=== PATIENT | male | born 1935 | race Caucasian/White ===

== ENCOUNTER 2019-10-26 10:41 | Outpatient (CLI) | payer MEDICARE, OTHER, SELFPAY ==
[2019-10-26 11:53] LABS: Prostate Specific Antigen 0.88 ng/mL (0-4)
[2019-10-26 12:04] LABS: Alanine Aminotransferase 19 U/L (0-41); Alkaline Phosphatase 80 IU/L (40-130); Aspartate Amino Transferase 16 U/L (0-40); Blood Urea Nitrogen 22 mg/dL (8-23); Carbon Dioxide 27 mmol/L (22-29); Chloride 102 mmol/L (98-107); Glucose 222 mg/dL (74-106); Sodium 139 mmol/L (136-145); Total Bilirubin 0.4 mg/dL (0.15-1.2)
[2019-10-26 12:45] LABS: Testosterone Total 17.1 ng/dL (193-740)
== END 2019-10-26 10:42 | disposition home or self-care (01) ==
LOC: ONCMED 10:46
PROVIDERS: Family Provider Internal Medicine; PCP Internal Medicine; Visit Provider Internal Medicine Hematology & Oncology
DX: C61 Malignant neoplasm of prostate (principal)
CPT/HCPCS: 80053; 84153; 84403

== ENCOUNTER 2019-10-28 16:02 | Outpatient (CLI) | payer MEDICARE, OTHER, SELFPAY | END 2019-10-28 16:03 | disposition home or self-care (01) | LOC: ONCMED 16:02 | PROVIDERS: Family Provider Internal Medicine; PCP Internal Medicine; Visit Provider Internal Medicine Hematology & Oncology | DX: C61 Malignant neoplasm of prostate (principal); C79.51 Secondary malignant neoplasm of bone; Z90.79 Acquired absence of other genital organ(s); M25.562 Pain in left knee; Z92.23 Personal history of estrogen therapy | CPT/HCPCS: 99214 ==

== ENCOUNTER 2020-03-01 08:57 | Outpatient (CLI) | payer MEDICARE, OTHER, SELFPAY ==
[2020-03-01 09:41] LABS: Bilirubin Urine Neg (NEGATIVE); Blood Urine Neg (Negative); Glucose Urine UA 1+ (Normal); Ketones Urine Negative (Negative); Leukocyte Esterase Urine Negative (Negative); Nitrate Urine Negative (Negative); Protein Urine Neg (Negative); Urine Appearance Clear (CLEAR); Urine Color Yellow (Yellow); Urobilinogen Urine Norm (Negative)
[2020-03-01 09:48] LABS: Add Urine Culture? No; Bacteria Urine TRACE; Mucus Urine 2+
[2020-03-01 09:58] LABS: Prostate Specific Antigen 5.51 ng/mL (0-4)
[2020-03-01 10:26] LABS: Testosterone Total 231.4 ng/dL (193-740)
== END 2020-03-01 08:58 | disposition home or self-care (01) ==
LOC: ONCMED 08:59
PROVIDERS: PCP Internal Medicine; Visit Provider Internal Medicine Hematology & Oncology
DX: C61 Malignant neoplasm of prostate (principal)
CPT/HCPCS: 81001; 84153; 84403

== ENCOUNTER 2020-03-03 07:58 | Outpatient (CLI) | payer MEDICARE, OTHER, SELFPAY ==
--- NOTE | 2020-03-03 09:43 | ONC FU_ITS ---
Dr. Gómez follow up note Patient: Annika Montgomery Unit #: [id number]: 1935 Dicatated By: Michael Gómez M.D.Date of Visit:Mar 03, 2020 Onc Med Follow-up/Prog Note History of Present Illness: Annika Murray , is a 84-year-old gentleman with long-standing history of prostrate cancer, he was intially diagnosed with prostrate cancer in November 2001 with PSA 6.3 and abnormal TAMY underwent radical retropubic prostatectomy with demonstration of right seminal vesicle involvement subsequently underwent adjuvant XBRT. During follow-up, late rising of PSA was noted and PSA continued to go up slowly, as per urology note PSA doubling time was more than one year. Patient was offered adjuvant hormonal therapy but patient declined until recently in March 2018 his PSA was 23.3 and there was a distinct right sided induration on TAMY. Because of left knee pain he underwent MRI scan of lumbar spine on 08/05/2018 which shows T11, L4, L5 vertebral body abnormality, subsequently underwent bone scan on 09/03/2018 which revealed metastatic disease involving left L4 superior articular facet, metastatic disease involving the left fifth, left ninth and right 11th rib and possibly right 6 and seventh ribs, subacute T12 compression fracture and on 09/14/2018 he was started on bicalutamide and referred to oncology clinic for ADT as patient declined castration and for biphosphonate for bone metastases.Zoladex was added on 10/13/2018, Zoladex was discontinued on April 22, 2019 at patient's request because of related side effects like hot flashes, generalized body weakness and fatigue and Xgeva was changed to Every 6 months and followed with a PSA and physical exam Other active issue 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 Chronic left knee pain in the past knee replacement was suggested but patient has used alternative therapy for many years with some success.He was evaluated by Dr. boone and CT scan of thoracic spine was done on 12/15/2018 which showed nonacute appearing T12 approximately 20% height loss anteriorly wedge compression fracture with minimal retropulsion. 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 Came for follow-up, complaining of mild back pain but no improving since he is on antibiotics per urine tract infection. As per patient recently he developed foul-smelling urine and off and on urine incontinence and he called Dr. Ty's office for antibiotics nitrofurantoin, with that his symptoms resolved and he had urinalysis done on March 01, 2020 showed no sign of infection during episode of infection he also experienced some lower back pain and left chest wall pain, no claims both have resolved or at least improved. Since his last visit he has left knee replacement and very pleased with it. Medications: AmLODIPine Besylate 1 Tablet (of 10 mg) Oral daily, Lantus 50 (100 Units/mL) Subcutaneous at bedtime, MetFORMIN HCl 1 Tablet (of 500 mg) Oral daily Allergies: Actos, Januvia, Penicillins, and Sulfa Antibiotics. Review of Systems: Review of Systems is not available for this patient. Vital Signs: Performed on Mar 03, 2020 08:42 Height - 69.00 in Weight - 199.8 lbs (HIGH) BSA - 2.06 sq.m BMI - 29.51 Temperature - 97.8 F (LOW) Pulse - 68 /min Respiration - 20 /min BP - 150/67 mm(hg) (HIGH) O2 Sat - 98 % Pain - 0 Performance Status: 0 - Fully active, able to carry on all predisease activities without restrictions. (ECOG) Physical Examination: ENMT - No mouth sores, no thrush or jaundice, Respiratory - Lungs are clear, Cardiovascular - Regular rate and rhythm of heart, Abdomen - Soft, bowel sounds present, Extremities - No edema or rash, no tenderness in the back. 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 Patient was offered adjuvant hormonal therapy but patient declined. MRI scan lumbosacral done on 08/05/2018 showed T11, L4, L5 vertebral body abnormality Bone scan done on 09/03/2018 which showed metastatic disease involving L4. Articular facet, metastatic disease involving left fifth, left ninth and right 11 rib possibly right sixth and seventh ribs, subcutaneous T12 compression fracture. Started on bicalutamide on 09/14/2018 And Zoladex on 10/13/2018 Zoladex discontinued on 04/22/2019 at patient request because of related side effects like hot flashes and generalized body weakness and fatigue And Xgeva was changed to every 6 months Chronic left knee pain, in the past, knee replacement was suggested, patient opted for alternative treatment with some success. 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 Plan: Discussed with patient regarding his labs PSA 5.51 compared to 0.88 on October 26, 2019 and testosterone 231.4 compared to 17.1 on October 18, 2019, Urine urinalysis within normal limits Clinically, patient is doing reasonably well however now with mild lower back pain and off and on left rib pain, with PSA gone up to 5.51 from 0.88 in September 2019 there is a possibility he may have disease progression causing these symptoms, on the other hand he had recent episode of urine tract infection, which can also cause back pain, as patient said with resolution of urine tract infection with antibiotics, his back pain has improved significantly. At this point we will have him back in 1 month with a PSA and CMP and if it shows further progression then will consider bone scan and CT scan of abdomen pelvis to assess disease status and if needed will discuss about androgen deprivation therapy, although patient is reluctant. Signed By: Michael Gómez M.D. <<Signature on File>>
== END 2020-03-03 07:59 | disposition home or self-care (01) ==
LOC: ONCMED 08:03
PROVIDERS: PCP Internal Medicine; Visit Provider Internal Medicine Hematology & Oncology
DX: C61 Malignant neoplasm of prostate (principal); C79.51 Secondary malignant neoplasm of bone; E11.42 Type 2 diabetes mellitus with diabetic polyneuropathy; I10 Essential (primary) hypertension; R97.20 Elevated prostate specific antigen [PSA]; Z86.010 Personal history of colon polyps; Z79.818 Long term (current) use of other agents affecting estrogen receptors and estrogen levels
CPT/HCPCS: 99214

== ENCOUNTER 2020-03-27 09:34 | Outpatient (CLI) | payer MEDICARE, OTHER, SELFPAY ==
[2020-03-27 11:00] LABS: Alanine Aminotransferase 17 U/L (0-41); Albumin Level 4.1 g/dL (3.5-5.2); Alkaline Phosphatase 131 IU/L (40-130); Anion Gap 15.2 (5-19); Aspartate Amino Transferase 13 U/L (0-40); Blood Urea Nitrogen 26 mg/dL (8-23); Carbon Dioxide 26 mmol/L (22-29); Chloride 103 mmol/L (98-107); Globulin 2.6 g/dL (1.3-4.6); Glucose 179 mg/dL (65-115); Osmolality Calculated 291 mOsm/kg (285-295); Potassium 4.2 mmol/L (3.5-5.1); Sodium 140 mmol/L (136-145); Total Bilirubin 0.4 mg/dL (0.15-1.2); Total Protein 6.7 g/dL (6.6-8.7)
--- NOTE | 2020-03-27 14:35 | ONC FU_ITS ---
Dr. Gómez follow up note Patient: Annika Montgomery Unit #: [id number]: 1935 Dicatated By: Michael Gómez M.D.Date of Visit:Mar 27, 2020 Onc Med Follow-up/Prog Note History of Present Illness: Annika Murray , is a 84-year-old gentleman with long-standing history of prostrate cancer, he was intially diagnosed with prostrate cancer in November 2001 with PSA 6.3 and abnormal TAMY underwent radical retropubic prostatectomy with demonstration of right seminal vesicle involvement subsequently underwent adjuvant XBRT. During follow-up, late rising of PSA was noted and PSA continued to go up slowly, as per urology note PSA doubling time was more than one year. Patient was offered adjuvant hormonal therapy but patient declined until recently in March 2018 his PSA was 23.3 and there was a distinct right sided induration on TAMY. Because of left knee pain he underwent MRI scan of lumbar spine on 08/05/2018 which shows T11, L4, L5 vertebral body abnormality, subsequently underwent bone scan on 09/03/2018 which revealed metastatic disease involving left L4 superior articular facet, metastatic disease involving the left fifth, left ninth and right 11th rib and possibly right 6 and seventh ribs, subacute T12 compression fracture and on 09/14/2018 he was started on bicalutamide and referred to oncology clinic for ADT as patient declined castration and for biphosphonate for bone metastases.Zoladex was added on 10/13/2018, Zoladex was discontinued on April 22, 2019 at patient's request because of related side effects like hot flashes, generalized body weakness and fatigue and Xgeva was changed to Every 6 months and followed with a PSA and physical exam Other active issue 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 Chronic left knee pain in the past knee replacement was suggested but patient has used alternative therapy for many years with some success.He was evaluated by Dr. boone and CT scan of thoracic spine was done on 12/15/2018 which showed nonacute appearing T12 approximately 20% height loss anteriorly wedge compression fracture with minimal retropulsion. 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 Patient has history of chronic lower back pain, as per patient he was treated by physical therapist, with excellent outcome for long time. Denies any urine or stool incontinence denies any pain radiating to lower extremities denies any numbness in lower extremities. And pain is non-radiating type, on the scale of 1-10 about 3-4. And controlled with current pain medication. Patient went to see his primary care physician recently with the urinary signs symptom and urinalysis done on March 17, 2020 showed no sign of urine tract infection but he was treated with Macrobid, as patient had foul-smelling urine. And because of his lower back pain he had lumbar spine x-ray done on March 20, 2020 which showed mild lumbar curve convex left, grade 1 anterolisthesis L4 and L5 measuring 2.6 mm. No significant instability. Trace retrolisthesis L2 and L3 with mild disc space narrowing. Chronic anterior wedging at T12. Medications: AmLODIPine Besylate 1 Tablet (of 10 mg) Oral daily, HYDROcodone-Acetaminophen 1 - 3 Tablet (of 5-325 mg) Oral four times a day, Lantus 50 (100 Units/mL) Subcutaneous at bedtime, MetFORMIN HCl 1 Tablet (of 500 mg) Oral daily Allergies: Actos, Januvia, Penicillins, and Sulfa Antibiotics. Review of Systems: Review of Systems is not available for this patient. Vital Signs: Performed on Mar 27, 2020 11:07 Height - 69.00 in Weight - 193.4 lbs (LOW) BSA - 2.04 sq.m BMI - 28.56 Temperature - 97.0 F (LOW) Pulse - 70 /min Respiration - 18 /min BP - 137/77 mm(hg) O2 Sat - 97 % Pain - 3 Performance Status: 1 - No physically strenuous activity, but ambulatory and able to carry out light or sedentary work (e.g. office work, light house work). (ECOG) Physical Examination: ENMT - No mouth sores, no thrush no jaundice, Respiratory - Lungs are clear, Cardiovascular - Regular rate and rhythm, Abdomen - Soft, bowel sounds present, nontender, Extremities - No edema or rash, lower back exam shows no focal pain or swelling. 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 Patient was offered adjuvant hormonal therapy but patient declined. MRI scan lumbosacral done on 08/05/2018 showed T11, L4, L5 vertebral body abnormality Bone scan done on 09/03/2018 which showed metastatic disease involving L4. Articular facet, metastatic disease involving left fifth, left ninth and right 11 rib possibly right sixth and seventh ribs, subcutaneous T12 compression fracture. Started on bicalutamide on 09/14/2018 And Zoladex on 10/13/2018 Zoladex discontinued on 04/22/2019 at patient request because of related side effects like hot flashes and generalized body weakness and fatigue And Xgeva was changed to every 6 months Chronic left knee pain, in the past, knee replacement was suggested, patient opted for alternative treatment with some success. 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 At this point will consider choline CT PET scan to assess prostate cancer disease status if it shows evidence of metastatic disease, then will plan accordingly. In the meantime patient was advised to take it easy and if there is a worsening of lower back pain or urine or stool incontinence then he need to go to hospital immediately otherwise we will see him back after choline CT PET scan. Signed By: Michael Gómez M.D. <<Signature on File>>
== END 2020-03-27 09:35 | disposition home or self-care (01) ==
LOC: ONCMED 09:40
PROVIDERS: PCP Internal Medicine; Visit Provider Internal Medicine Hematology & Oncology
DX: C61 Malignant neoplasm of prostate (principal); C79.51 Secondary malignant neoplasm of bone; R97.21 Rising PSA following treatment for malignant neoplasm of prostate; M54.5 Low back pain; Z87.440 Personal history of urinary (tract) infections; M25.562 Pain in left knee; Z79.899 Other long term (current) drug therapy; Z90.79 Acquired absence of other genital organ(s)
CPT/HCPCS: 36415; 80053; 84153; 99214

== ENCOUNTER 2020-04-12 11:44 | Emergency (ER) | payer MEDICARE, OTHER, SELFPAY ==
[2020-04-12 11:53] VITALS: BMI 27.1
[2020-04-12 11:55] VITALS: BP 171/87; PULSE 62; RESP 18; TEMP 36.5; O2SAT 95
[2020-04-12 12:22] LABS: Basophils # 0.1 10^3/uL (0.0-0.1); Basophils % 0.4 %; Eosinophils # 0.3 10^3/uL (0.0-0.8); Eosinophils % 2.4 %; Hematocrit 47.5 % (42.0-52.0); Hemoglobin 15.4 g/dL (11.7-16.6); Lymphocytes # 2.6 10^3/uL (0.8-4.8); Lymphocytes % 21.5 %; Mean Corpuscular HGB Conc 32.4 g/dL (30.0-36.0); Mean Corpuscular Hemoglobin 29.4 pg (28.0-34.0); Mean Corpuscular Volume 90.8 fL (80-94); Mean Platelet Volume 11.1 fL (7.4-10.4); Monocytes # 0.8 10^3/uL (0.2-0.9); Neutrophils # 8.13 10^3/uL (1.8-7.7); Neutrophils % 68.3 %; Nucleated Red Blood Cells % 0 %; Platelet Count 237 10^3/cmm (130-400); Red Blood Count 5.23 10^6/uL (4.1-5.3); Red Cell Distribution Width 14.4 % (12.1-15.1); White Blood Count 11.9 10^3/uL (4.0-10.0)
[2020-04-12 12:34] LABS: Add Urine Microscopic? NO
[2020-04-12 12:39] LABS: Alanine Aminotransferase 21 U/L (0-41); Alkaline Phosphatase 104 IU/L (40-130); Aspartate Amino Transferase 14 U/L (0-40); Blood Urea Nitrogen 23 mg/dL (8-23); Calcium 9.6 mg/dL (8.5-10.5); Carbon Dioxide 24 mmol/L (22-29); Chloride 105 mmol/L (98-107); Creatinine Clr Calc Pharmacy 77.2781; Glucose 155 mg/dL (65-115); Osmolality Calculated 288 mOsm/kg (285-295); Sodium 139 mmol/L (136-145); Total Bilirubin 0.5 mg/dL (0.15-1.2)
[2020-04-12 12:56] LABS: Bilirubin Urine Neg (NEGATIVE); Blood Urine Neg (Negative); Glucose Urine UA 2+ (Normal); Ketones Urine 1+ (Negative); Leukocyte Esterase Urine Negative (Negative); Nitrate Urine Negative (Negative); Protein Urine Neg (Negative); Specific Gravity, Urine 1.025 (1.005-1.030); Urine Appearance Clear (CLEAR); Urine Color Yellow (Yellow); Urobilinogen Urine Norm (Negative)
[2020-04-12 13:02] VITALS: BP 157/83; PULSE 60; RESP 16; O2SAT 96
[2020-04-12 13:05] LABS: Anion Gap 14.2 (5-19); Potassium 4.2 mmol/L (3.5-5.1)
--- NOTE | 2020-04-12 13:11 | US_ITS ---
WS: [id number] SCROTAL ULTRASOUND EXAMINATION CLINICAL INFORMATION: testicular pain, H/O prostate COMPARISON: None. FINDINGS: TESTES Normal in size and echotexture, without focal lesion. Color Doppler: Normal color Doppler flow pattern. Right testes size: 3.8 cm x 2.6 cm x 2.1 cm. Left testes size: 3.2 cm x 2.0 cm x 1.5 cm. EPIDIDYMIDES Normal in size and echotexture, without focal lesion. Color Doppler: Normal color Doppler flow pattern. Right epididymis size: 1.2 cm x cm x cm. Left epididymitis size: 0.9 cm x cm x cm. HYDROCELE None. VARICOCELE None. OTHER FINDINGS None. US/US scrotum [id number] IMPRESSION: Normal testicular ultrasound
--- NOTE | 2020-04-12 13:14 | CTR_ITS ---
PROCEDURE INFORMATION: Exam: CT Abdomen And Pelvis Without Contrast Exam date and time: 04/12/2020 1:26 PM Age: 84 years old Clinical indication: Abdominal pain; Localized; Prior surgery; Patient HX: Left sided abd pain. History of left inguinal hernia. ; Additional info: Left flank pain, history of prostate cancer TECHNIQUE: Imaging protocol: Computed tomography of the abdomen and pelvis without contrast. Radiation optimization: All CT scans at this facility use at least one of these dose optimization techniques: automated exposure control; mA and/or kV adjustment per patient size (includes targeted exams where dose is matched to clinical indication); or iterative reconstruction. COMPARISON: CT Abdomen/Pelvis o [id number] 10/28/2016 1:47 PM RADIATION DOSE METRICS: Total DLP (mGy-cm): 1494.69 FINDINGS: Liver: Normal. No mass. Gallbladder and bile ducts: Normal. No calcified stones. No ductal dilation. Pancreas: Normal. No ductal dilation. Spleen: Normal. No splenomegaly. Adrenals: Normal. No mass. Kidneys and ureters: There is a 3.3 cm hypodensity off the posterior right kidney which is unchanged. Other renal cysts are also unchanged. There are right parapelvic cysts. There is punctate calcification in the right kidney. No hydronephrosis. Stomach and bowel: Colonic diverticula are present although there are no CT findings to suggest diverticulitis. No bowel obstruction or wall thickening. Appendix: The appendix is visualized and appears normal. Intraperitoneal space: Unremarkable. No free air. No significant fluid collection. Vasculature: Unremarkable. No abdominal aortic aneurysm. Lymph nodes: Unremarkable. No enlarged lymph nodes. Bladder: Unremarkable as visualized. Reproductive: There has been prostatectomy. Bones/joints: Degenerative change is identified in the spine. There is no evidence for acute fracture or malalignment. Soft tissues: There is fat in the bilateral inguinal canal. CT/CT abdomen pelvis con [id number] IMPRESSION: There are no acute concerning abnormalities. There is fat in the bilateral inguinal canal. There are benign renal cysts. No follow-up imaging is recommended. Radiation Dose CTDIVOL = (mGy): DLP = 1494.69 (mGy-cm)
[2020-04-12 14:11] VITALS: BP 188/84; PULSE 68; RESP 17; O2SAT 95
[2020-04-12 14:40] VITALS: BP 160/92; PULSE 71; RESP 16; O2SAT 95
--- NOTE | 2020-04-12 15:20 | W.ED.MALEGU ---
HPI - Male Genitourinary General: Chief complaint: Urogenital-Male Stated complaint: TESTICAL PAIN Time Seen by Provider: 04/12/20 11:54 History of Present Illness: HPI Narrative: This patient is an 84-year-old male presenting with left testicular pain and some left back pain. He has a history of prostate cancer treated in the remote past with a radical prostatectomy. That was in 2001. He required radiation after surgery due to infiltration of the right seminal vesicle. He recently was found to have an increasing PSA and treated with hormone therapy by Dr. Gómez. He has a PET scan upcoming and on recent CTs was found to have extensive bony mets in his ribs. He presents today with pain that he thinks could be related to his cancer. He also reports that he has been on antibiotics several times over the past year or so for infection involving his urine or testicle. He is not sure exactly what infection. He was treated about 2 months ago with Macrobid most recently. He is to see Dr. Ty but has not seen him in about [address] Ty turned me over to Dr. Gómez. 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 He also had a hernia repaired as a young man on the left inguinal area but has not had any problems since then. MD Complaint: testicle pain Location: left testicle and left inguinal region Radiation: left testicle Associated symptoms: Deny dysuria, nausea or vomiting Review of Systems General: Reports: 10 or more systems reviewed and unremarkable except in HPI and below Const: Denies: fever(s), chills, fatigue or malaise Eyes: Denies: change in vision ENMT: Denies: odynophagia Card: Denies: chest pain or swelling of feet/ankles Resp: Denies: dyspnea, productive cough or non-productive cough GI: Denies: abdominal pain, nausea or vomiting : Reports: testicular pain; Denies: flank pain, difficulty urinating or dysuria Musc: Reports: back pain (Pain around the left iliac crest and SI area.); Denies: neck pain Skin/Breast: Denies: rash Neuro: Denies: headache(s), numbness in extremities or weakness in extremities Rudy/Lymph: Denies: easy bruising or easy bleeding Physical Exam Const: COMMON NORMALS: no acute distress, patient oriented x3, no limitations and alert GENERAL APPEARANCE: cooperative and comfortable HENMT: HEAD & SCALP: normal to inspection FACE & SINUS: normal facial exam Eye: GENERAL EYE: appearance normal, both eyes and all related structures Neck/C-Spine: COMMON NORMALS: supple, no meningeal signs and no JVD Chest: COMMONS NORMALS: normal inspection of the chest Resp: COMMON NORMALS: normal respiratory effort, No use of accessory muscles and clear to auscultation bilaterally AUSCULTATION: clear to auscultation bilaterally Cardio: COMMON NORMALS: no JVD, regular rate, regular rhythm and No murmurs present (Cardio) RATE: regular rate RHYTHM: regular rhythm GI: COMMON NORMALS: Normal to inspection, nondistended, normoactive bowel sounds present, Soft to palpation and non-tender INSPECTION: Yes normal to inspection AUSCULTATION: Yes normoactive bowel sounds PALPATION: Yes Soft to palpation : PENIS: normal penis SCROTUM: Yes testes descended bilaterally, No inguinal hernia and Yes Scrotal tenderness present (In the area of the epididymis and into the inguinal canal, no real swelling. There is some thickening in that area) Back/Pelvis: COMMON NORMALS: thoracic and lumbar spine normal to inspection Extremity: COMMON NORMALS: normal to inspection Neuro: COMMON NORMALS: patient oriented x3, moves all extremities, no focal motor deficits and no sensory deficits noted SENSORIUM/ORIENTATION: Yes alert MENINGEAL SIGNS: Yes no meningeal signs Psych: COMMON NORMALS: mental status grossly normal, cooperative and normal affect Skin: COMMON NORMALS: no rashes or lesions noted and turgor normal GENERAL SKIN EXAM: no rashes or lesions noted and turgor normal Course ED course: Testicular ultrasound unremarkable. CT scan of the abdomen and pelvis does not show any obvious cause for his pain. I am going to put him on empiric antibiotics for questionable epididymitis and have him follow-up with Dr. Ty as well as Dr. Gómez. Vital Signs: Vital signs: Vital Signs Temperature 97.7 F 04/12/20 11:55 Pulse Rate 71 04/12/20 14:40 Respiratory Rate 16 04/12/20 14:40 Blood Pressure 160/92 04/12/20 14:40 Pulse Oximetry 95 04/12/20 14:40 MDM - Male MDM Narrative: Medical decision making narrative: History of metastatic prostate cancer. Consider bone lesions. Consider other metastatic disease. Also history of being on antibiotics intermittently for something related to this type of problem. Could be epididymitis. Could be urinary tract infection. Could also be kidney stone given the pain radiating to his back. Clinically he does not look toxic or in severe distress. He has pain medicine at home that he says works well. Lab Data: Labs: Lab Results 04/12/20 04/12/20 04/12/20 Range/Units 12:15 12:15 12:27 WBC 11.9 H (4.0-10.0) 10^3/ uL RBC 5.23 (4.1-5.3) 10^6/u L Hgb 15.4 (11.7-16.6) g/dL Hct 47.5 (42.0-52.0) % MCV 90.8 (80-94) fL MCH 29.4 (28.0-34.0) pg MCHC 32.4 (30.0-36.0) g/dL RDW 14.4 (12.1-15.1) % Plt Count 237 (130-400) 10^3/c mm MPV 11.1 H (7.4-10.4) fL Neut % (Auto) 68.3 % Lymph % (Auto) 21.5 % [place] % (Auto) 7.0 % Eos % (Auto) 2.4 % Baso % (Auto) 0.4 % Neut # (Auto) 8.13 H (1.8-7.7) 10^3/u L Lymph # (Auto) 2.6 (0.8-4.8) 10^3/u L [place] # (Auto) 0.8 (0.2-0.9) 10^3/u L Eos # (Auto) 0.3 (0.0-0.8) 10^3/u L Baso # (Auto) 0.1 (0.0-0.1) 10^3/u L Nucleated RBC % (a uto) 0 % Nucleated RBCs # 0.0 /100WBC Sodium 139 (136-145) mmol/L Potassium 4.2 (3.5-5.1) mmol/L Chloride 105 (98-107) mmol/L Carbon Dioxide 24 (22-29) mmol/L Anion Gap 14.2 (5-19) BUN 23 (8-23) mg/dL Creatinine 0.7 (0.7-1.2) mg/dL Glucose 155 H (65-115) mg/dL Calculated Osmolal ity 288 (285-295) mOsm/k g Calcium 9.6 (8.5-10.5) mg/dL Total Bilirubin 0.5 (0.15-1.2) mg/dL AST 14 (0-40) U/L ALT 21 (0-41) U/L Alkaline Phosphata se 104 (40-130) IU/L Total Protein 7.0 (6.6-8.7) g/dL Albumin 4.0 (3.5-5.2) g/dL Globulin 3.0 (1.3-4.6) g/dL Urine Color Yellow (Yellow) Urine Appearance Clear (CLEAR) Urine pH 5.0 (5-7) Ur Specific Gravit y 1.025 (1.005-1.030) Urine Protein Neg (Negative) Urine Glucose (UA) 2+ (Normal) Urine Ketones 1+ H (Negative) Urine Blood Neg (Negative) Urine Nitrate Negative (Negative) Urine Bilirubin Neg (NEGATIVE) Urine Urobilinogen Norm (Negative) mg/dL Ur Leukocyte Loraine ase Negative (Negative) Discharge Plan Discharge Patient Disposition: Home, Self-Care Clinical Impression: Pain in left testicle, Malignant neoplasm Condition: Stable Prescriptions: New ciprofloxacin HCl 750 mg tablet 750 mg PO BID Qty: 14 RF: 0 No Action nitrofurantoin monohyd/m-cryst 100 mg capsule 100 mg PO BID Qty: 10 RF: 1 Lantus U-100 Insulin 100 unit/mL solution 55 unit SUBCUT BEDTIME RF: 0 hydrocodone-acetaminophen 5-325 mg tablet 1 tab PO QID PRN (Reason: Pain) RF: 0 Aspir-81 81 mg Tablet,Delayed Release (Dr/Ec) 81 mg PO DAILY RF: 0 amlodipine 10 mg tablet 10 mg PO DAILY RF: 0 metformin 500 mg tablet extended release 24 hr 500 mg PO DAILY RF: 0 Referrals: Wenceslao Ty MD [Physician] - 7-10 days Michael Gómez MD [Staff Physician] - (as scheduled) Griffin Ross DO [Primary Care Provider] - Discharge Diet: Usual diet Discharge Activity: Resume usual activity Patient Instructions: Testicle Pain (ED) Activity Restrictions/Additional Instructions: Take the antibiotic as prescribed to treat possible infection in the testicle. Follow up with Dr. Ty for further evaluation, and with Dr. Gómez for the PET scan as planned. Return to the ED if fever, vomiting or worse pain. 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
[2020-04-12 15:23] VITALS: BP 160/92; PULSE 69; RESP 16; O2SAT 97
--- NOTE | 2020-04-12 15:45 | DCPLANNER ---
promotions firm accounts manager was asked to schedule a follow up appointment for patient with Dr. Ty. promotions firm accounts manager called the office of Dr. Ty, spoke with Carola, gave clinic patients information. promotions firm accounts manager was told that patients information would be printed and reviewed. Clinic will call patient with appointment information.
--- NOTE | 2020-05-04 08:37 | DCPLANNER ---
Patient has a followup appointment is scheduled for Friday, May 31, 2020 at 2:[address] Ty, clinic will call patient with appointment information.
--- NOTE | 2020-06-23 11:04 | DCPLANNER ---
Patient had a follow up appointment scheduled for 05.31.[address] Ty - patient did attend the appointment.
== END 2020-04-12 15:25 | disposition home or self-care (01) ==
PROVIDERS: Emergency Provider Emergency Medicine; PCP Internal Medicine
DX: N50.812 Left testicular pain (principal); Z79.82 Long term (current) use of aspirin; Z79.4 Long term (current) use of insulin; Z85.46 Personal history of malignant neoplasm of prostate; C79.51 Secondary malignant neoplasm of bone; Z90.79 Acquired absence of other genital organ(s)
CPT/HCPCS: 12345; 36415; 74176; 76870; 80053; 81003; 85025; 99283

== ENCOUNTER 2020-05-23 13:59 | Outpatient (CLI) | payer MEDICARE, OTHER, SELFPAY ==
[2020-05-23 14:42] LABS: Basophils % 0.4 %; Eosinophils # 0.4 10^3/uL (0.0-0.8); Hematocrit 48.2 % (42.0-52.0); Hemoglobin 15.5 g/dL (11.7-16.6); Lymphocytes # 2.4 10^3/uL (0.8-4.8); Lymphocytes % 22.1 %; Mean Corpuscular HGB Conc 32.2 g/dL (30.0-36.0); Mean Corpuscular Hemoglobin 30.6 pg (28.0-34.0); Mean Corpuscular Volume 95.1 fL (80-94); Mean Platelet Volume 11.2 fL (7.4-10.4); Monocytes # 0.7 10^3/uL (0.2-0.9); Monocytes % 6.4 %; Neutrophils # 7.13 10^3/uL (1.8-7.7); Neutrophils % 66.6 %; Nucleated Red Blood Cells % 0 %; Platelet Count 221 10^3/cmm (130-400); Red Blood Count 5.07 10^6/uL (4.1-5.3); Red Cell Distribution Width 14.7 % (12.1-15.1); White Blood Count 10.7 10^3/uL (4.0-10.0)
[2020-05-23 14:54] LABS: Alanine Aminotransferase 15 U/L (0-41); Alkaline Phosphatase 107 IU/L (40-130); Aspartate Amino Transferase 13 U/L (0-40); Blood Urea Nitrogen 29 mg/dL (8-23); Calcium 9.3 mg/dL (8.5-10.5); Carbon Dioxide 21 mmol/L (22-29); Chloride 105 mmol/L (98-107); Glucose 247 mg/dL (65-115); Osmolality Calculated 289 mOsm/kg (285-295); Sodium 137 mmol/L (136-145); Total Bilirubin 0.4 mg/dL (0.15-1.2)
--- NOTE | 2020-05-23 17:00 | ONC FU_ITS ---
Dr. Gómez follow up note Patient: Annika Montgomery Unit #: [id number]: [id number] Dicatated By: Michael Gómez M.D.Date of Visit:May 23, 2020 Onc Med Follow-up/Prog Note History of Present Illness: Annika Murray , is a 84-year-old gentleman with long-standing history of prostrate cancer, he was intially diagnosed with prostrate cancer in November 2001 with PSA 6.3 and abnormal TAMY underwent radical retropubic prostatectomy with demonstration of right seminal vesicle involvement subsequently underwent adjuvant XBRT. During follow-up, late rising of PSA was noted and PSA continued to go up slowly, as per urology note PSA doubling time was more than one year. Patient was offered adjuvant hormonal therapy but patient declined until recently in March 2018 his PSA was 23.3 and there was a distinct right sided induration on TAMY. Because of left knee pain he underwent MRI scan of lumbar spine on 08/05/2018 which shows T11, L4, L5 vertebral body abnormality, subsequently underwent bone scan on 09/03/2018 which revealed metastatic disease involving left L4 superior articular facet, metastatic disease involving the left fifth, left ninth and right 11th rib and possibly right 6 and seventh ribs, subacute T12 compression fracture and on 09/14/2018 he was started on bicalutamide and referred to oncology clinic for ADT as patient declined castration and for biphosphonate for bone metastases.Zoladex was added on 10/13/2018, Zoladex was discontinued on April 22, 2019 at patient's request because of related side effects like hot flashes, generalized body weakness and fatigue and Xgeva was changed to Every 6 months and followed with a PSA and physical exam Other active issue 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 Chronic left knee pain in the past knee replacement was suggested but patient has used alternative therapy for many years with some success.He was evaluated by Dr. boone and CT scan of thoracic spine was done on 12/15/2018 which showed nonacute appearing T12 approximately 20% height loss anteriorly wedge compression fracture with minimal retropulsion. 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 Patient went to see his primary care physician recently with the urinary signs symptom and urinalysis done on March 17, 2020 showed no sign of urine tract infection but he was treated with Macrobid, as patient had foul-smelling urine. And because of his lower back pain he had lumbar spine x-ray done on March 20, 2020 which showed mild lumbar curve convex left, grade 1 anterolisthesis L4 and L5 measuring 2.6 mm. No significant instability. Trace retrolisthesis L2 and L3 with mild disc space narrowing. Chronic anterior wedging at T12. Follow-up Axumin CT PET scan done on May 15, 2020 showed postsurgical changes from prior prostatectomy. Nonspecific, increased radiotracer uptake along the posterior aspect of the bladder but more inferiorly along the anterior inferior prostatectomy bed. Local regional recurrence is not excluded. Intense radiotracer uptake throughout the spine, sacrum and pelvis with more focal, intense area of uptake along the posterior left ninth rib and proximal right clavicle. Nonspecific intense focal radiotracer uptake along the left anterior frontal region, as per patient, he has small tumor in his left forehead for more than 10 years, Dr. Flynn in [place] was following. Came for follow-up, denies any specific complaints, except episode of left flank pain radiating to the testicles, for which on April 12, 2020, he went to hospital for evaluation as per patient CT scan of abdomen was done which showed no significant changes, patient was diagnosed with urine tract infection, started on ciprofloxacin, as per patient he continued to have pain but after 5 - 6 days of oral antibiotics, his pain improved, in fact gone and he was not requiring any pain medication. And now off and on mild discomfort but no fever chills, no nausea or vomiting, no diarrhea constipation Medications: AmLODIPine Besylate 1 Tablet (of 10 mg) Oral daily, HYDROcodone-Acetaminophen 1 - 3 Tablet (of 5-325 mg) Oral four times a day, Lantus 50 (100 Units/mL) Subcutaneous at bedtime, MetFORMIN HCl 1 Tablet (of 500 mg) Oral daily Allergies: Actos, Januvia, Penicillins, and Sulfa Antibiotics. Review of Systems: Constitutional - Appetite is good and weight is stable. No fever, chills, or night sweats. Energy level is poor/fair. Positive for hot flashes, ENMT - No sinus congestion/drainage. No mouth sores. No sore throat or difficulty swallowing, Hematologic/Lymphatic - No abnormal bruising or bleeding, Respiratory - No shortness of breath. No cough. No pleuritic pain or hemoptysis, Cardiovascular - No angina pain. No palpitations, Gastrointestinal - No nausea or vomiting. No heartburn or acid reflux. No diarrhea or constipation. No blood in the stool or black stools, Genitourinary (M) - No dysuria or hematuria. No urinary frequency. No urgency or incontinence, Musculoskeletal - Pain in left knee. Pt continues to discuss possibility of knee replacement, Neurologic - No headache or dizziness. No numbness/paresthesias or other focal neurologic symptoms, Psychiatric - No anxiety or depression. Pt reports difficulty falling and staying asleep. Vital Signs: Performed on May 23, 2020 15:24 Height - 69.00 in Weight - 195.2 lbs (HIGH) BSA - 2.04 sq.m BMI - 28.83 Temperature - 98.5 F Pulse - 81 /min Respiration - 18 /min BP - 184/94 mm(hg) (HIGH) O2 Sat - 99 % Pain - 0 Performance Status: 0 - Fully active, able to carry on all predisease activities without restrictions. (ECOG) Physical Examination: ENMT - No mouth sores, no thrush, no jaundice, Respiratory - Lungs are clear, Cardiovascular - Regular rate and rhythm of heart, Abdomen - Soft, bowel sounds present, Extremities - No visible edema. 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 Patient was offered adjuvant hormonal therapy but patient declined. MRI scan lumbosacral done on 08/05/2018 showed T11, L4, L5 vertebral body abnormality Bone scan done on 09/03/2018 which showed metastatic disease involving L4. Articular facet, metastatic disease involving left fifth, left ninth and right 11 rib possibly right sixth and seventh ribs, subcutaneous T12 compression fracture. Started on bicalutamide on 09/14/2018 And Zoladex on 10/13/2018 Zoladex discontinued on 04/22/2019 at patient request because of related side effects like hot flashes and generalized body weakness and fatigue And Xgeva was changed to every 6 months Chronic left knee pain, in the past, knee replacement was suggested, patient opted for alternative treatment with some success. 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 Plan: Discussed with patient regarding his follow-up Axumin PET scan which was done on May 15, 2020 showed no obvious visceral disease except nonspecific uptake in the prostatectomy bed concern was local regional disease recurrence and persistent axial skeleton metastatic disease Clinically, patient is doing well not symptomatic from bone mets but left flank pain radiating to testicle responded very well to ciprofloxacin prescribed by hospital physician, and now with off and on discomfort, he may have subclinical urine tract infection, we will continue with ciprofloxacin for another 2 weeks and as far as prostate cancer is concerned his Axumin PET CT PET scan shows active disease, and his PSA slowly going up, treatment options including observation versus androgen deprivation therapy versus referral to radiation oncology was discussed, patient declined radiation oncology evaluation but agreed to try Casodex alone and if there is no improvement in PSA then he would consider Zoladex as in the past he did not like the side effect related to ADT. Also discussed about biphosphonate/Xgeva, patient to think about. We will give him prescription for Casodex 50 mg p.o. daily and he will return to clinic in 1 month with PSA and the patient agreed will consider starting him on monthly Xgeva also.As far as left frontal abnormality seen on exam and CT PET scan is concerned, as per patient and his patient has left forehead lesion for over 10 years, as per patient Dr. Flynn in [place] used to follow it. Signed By: Michael Gómez M.D. <<Signature on File>>
== END 2020-05-23 14:00 | disposition home or self-care (01) ==
LOC: ONCMED 14:05
PROVIDERS: PCP Internal Medicine; Visit Provider Internal Medicine Hematology & Oncology
DX: C61 Malignant neoplasm of prostate (principal); C79.51 Secondary malignant neoplasm of bone; R10.32 Left lower quadrant pain; L98.9 Disorder of the skin and subcutaneous tissue, unspecified; G89.29 Other chronic pain; M25.562 Pain in left knee; Z87.440 Personal history of urinary (tract) infections; Z79.899 Other long term (current) drug therapy; Z92.23 Personal history of estrogen therapy
CPT/HCPCS: 80053; 85025; 99214

== ENCOUNTER → 2020-05-31 14:23 | Outpatient (BNVA) | payer MEDICARE, OTHER, SELFPAY | PROVIDERS: PCP Internal Medicine; Visit Provider Urology | DX: N39.0 Urinary tract infection, site not specified (principal); C61 Malignant neoplasm of prostate; N45.1 Epididymitis | CPT/HCPCS: 81001 ==

== ENCOUNTER 2020-06-29 08:09 | Outpatient (CLI) | payer MEDICARE, OTHER, SELFPAY | END 2020-06-29 08:10 | disposition home or self-care (01) | LOC: ONCMED 08:16 | PROVIDERS: PCP Internal Medicine; Visit Provider Internal Medicine Hematology & Oncology | DX: C61 Malignant neoplasm of prostate (principal) | CPT/HCPCS: 36415; 84153 ==

== ENCOUNTER 2020-06-30 05:47 | Outpatient (CLI) | payer MEDICARE, OTHER, SELFPAY ==
--- NOTE | 2020-06-30 12:15 | ONC FU_ITS ---
Dr. Gómez follow up note Patient: Annika Montgomery Unit #: [id number]: 1935 Dicatated By: Michael Gómez M.D.Date of Visit:Jun 30, 2020 Onc Med Follow-up/Prog Note History of Present Illness: Annika Murray , is a 84-year-old gentleman with long-standing history of prostrate cancer, he was intially diagnosed with prostrate cancer in November 2001 with PSA 6.3 and abnormal TAMY underwent radical retropubic prostatectomy with demonstration of right seminal vesicle involvement subsequently underwent adjuvant XBRT. During follow-up, late rising of PSA was noted and PSA continued to go up slowly, as per urology note PSA doubling time was more than one year. Patient was offered adjuvant hormonal therapy but patient declined until recently in March 2018 his PSA was 23.3 and there was a distinct right sided induration on TAMY. Because of left knee pain he underwent MRI scan of lumbar spine on 08/05/2018 which shows T11, L4, L5 vertebral body abnormality, subsequently underwent bone scan on 09/03/2018 which revealed metastatic disease involving left L4 superior articular facet, metastatic disease involving the left fifth, left ninth and right 11th rib and possibly right 6 and seventh ribs, subacute T12 compression fracture and on 09/14/2018 he was started on bicalutamide and referred to oncology clinic for ADT as patient declined castration and for biphosphonate for bone metastases.Zoladex was added on 10/13/2018, Zoladex was discontinued on April 22, 2019 at patient's request because of related side effects like hot flashes, generalized body weakness and fatigue and Xgeva was changed to Every 6 months and followed with a PSA and physical exam Other active issue 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 Chronic left knee pain in the past knee replacement was suggested but patient has used alternative therapy for many years with some success.He was evaluated by Dr. boone and CT scan of thoracic spine was done on 12/15/2018 which showed nonacute appearing T12 approximately 20% height loss anteriorly wedge compression fracture with minimal retropulsion. 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 Patient went to see his primary care physician recently with the urinary signs symptom and urinalysis done on March 17, 2020 showed no sign of urine tract infection but he was treated with Macrobid, as patient had foul-smelling urine. And because of his lower back pain he had lumbar spine x-ray done on March 20, 2020 which showed mild lumbar curve convex left, grade 1 anterolisthesis L4 and L5 measuring 2.6 mm. No significant instability. Trace retrolisthesis L2 and L3 with mild disc space narrowing. Chronic anterior wedging at T12. Follow-up Axumin CT PET scan done on May 15, 2020 showed postsurgical changes from prior prostatectomy. Nonspecific, increased radiotracer uptake along the posterior aspect of the bladder but more inferiorly along the anterior inferior prostatectomy bed. Local regional recurrence is not excluded. Intense radiotracer uptake throughout the spine, sacrum and pelvis with more focal, intense area of uptake along the posterior left ninth rib and proximal right clavicle. Nonspecific intense focal radiotracer uptake along the left anterior frontal region, as per patient, he has small tumor in his left forehead for more than 10 years, Dr. Flynn in [place] was following. Started on bicalutamide 50 mg p.o. daily on May 23, 2020 as patient refused Zoladex. Came for follow-up, worsening of complaining of lower back pain, now radiating to left leg, denies any trauma to his lower back or leg or hip but has been working on his tractor and doing some heavy lifting in the last couple of weeks denies any hematuria denies any numbness in the lower extremity denies any urine or stool incontinence. Patient said his PMD gave him Percocet he takes twice a day and is helping him. And also tolerating bicalutamide well. Medications: AmLODIPine Besylate 1 Tablet (of 10 mg) Oral daily, CeleXA 0.5 Tablet (of 10 mg) Oral daily, HYDROcodone-Acetaminophen 1 - 3 Tablet (of 5-325 mg) Oral four times a day, Lantus 50 (100 Units/mL) Subcutaneous at bedtime, MetFORMIN HCl 1 Tablet (of 500 mg) Oral daily Allergies: Actos, Januvia, Penicillins, and Sulfa Antibiotics. Review of Systems: Review of Systems is not available for this patient. Vital Signs: Performed on Jun 30, 2020 10:47 Height - 69.00 in Weight - 198.4 lbs (HIGH) BSA - 2.06 sq.m BMI - 29.30 Temperature - 97.8 F (LOW) Pulse - 75 /min Respiration - 18 /min BP - 141/66 mm(hg) (HIGH) O2 Sat - 97 % Pain - 0 Performance Status: 1 - No physically strenuous activity, but ambulatory and able to carry out light or sedentary work (e.g. office work, light house work). (ECOG) Physical Examination: ENMT - No mouth sores, no thrush, no jaundice, Respiratory - Lungs are clear to auscultation, Cardiovascular - Regular rate and rhythm of heart, Abdomen - Soft, bowel sounds present, Extremities - No visible edema, no focal weakness. 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 Patient was offered adjuvant hormonal therapy but patient declined. MRI scan lumbosacral done on 08/05/2018 showed T11, L4, L5 vertebral body abnormality Bone scan done on 09/03/2018 which showed metastatic disease involving L4. Articular facet, metastatic disease involving left fifth, left ninth and right 11 rib possibly right sixth and seventh ribs, subcutaneous T12 compression fracture. Started on bicalutamide on 09/14/2018 And Zoladex on 10/13/2018 Zoladex discontinued on 04/22/2019 at patient request because of related side effects like hot flashes and generalized body weakness and fatigue And Xgeva was changed to every 6 months Chronic left knee pain, in the past, knee replacement was suggested, patient opted for alternative treatment with some success. 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 Plan: Discussed with patient regarding his labs PSA is down to 1.68 compared to 5.96 on March 27, 2020 e.g. prior to Casodex Clinically, patient is doing reasonably well now in mild to moderate distress due to lower back pain and left hip/leg pain of couple of weeks duration but denies any lower extremity numbness denies any urine or stool incontinence. As far as prostate cancer is concerned his PSA has come down to 1.68 compared to 5.96 after started on Casodex alone, patient was advised Casodex alone may not be sufficient and he need in addition to this Zoladex every 3 months but patient refused knowing the risk versus benefits and also refused Xgeva As far as lower back pain radiating to left hip and left leg is concerned, could be due to lower back pathology like degenerative joint disease or disc prolapse or considering history of mets to the spine vertebral collapse but patient has no neurological signs symptom patient was advised to avoid heavy lifting in the meantime we will order MRI scan of lumbosacral and left hip in the meantime patient was advised in case there is a worsening of symptoms he need to go to hospital immediately in the meantime at patient's request we will continue with bicalutamide 50 mg daily, patient was again advised to consider addition of Zoladex too, patient to think about that. Return to clinic in 1 month with PSA and testosterone unless MRI scan of lumbosacral and left hip shows otherwise. Signed By: Michael Gómez M.D. <<Signature on File>>
== END 2020-06-30 05:48 | disposition home or self-care (01) ==
LOC: ONCMED 05:49
PROVIDERS: PCP Internal Medicine; Visit Provider Internal Medicine Hematology & Oncology
DX: C61 Malignant neoplasm of prostate (principal); C79.51 Secondary malignant neoplasm of bone; G89.29 Other chronic pain; M25.562 Pain in left knee; M25.552 Pain in left hip; M54.5 Low back pain; Z79.899 Other long term (current) drug therapy
CPT/HCPCS: 99214

== ENCOUNTER 2020-07-10 07:55 | Outpatient (CLI) | payer MEDICARE, OTHER, SELFPAY ==
--- NOTE | 2020-07-10 08:19 | MR_ITS ---
WS: [id number] MRI OF THE PELVIS WITHOUT AND WITH GADOLINIUM ENHANCEMENT. INDICATION: Prostate cancer TECHNIQUE: Axial T1, axial T2, sagittal T2, coronal T1, coronal STIR, coronal T2, post gadolinium jack ging was obtained with fat saturation technique. FINDINGS: Postoperative changes prostatectomy. Mild diffuse enhancing soft tissue thickening of the prostatic u rethra eccentric to the right with enhancement not significantly changed since October 03, 2011. Norm al perirectal and perivesical fat. Normal rectum. No perirectal lymphadenopathy or pelvic lymphadenop athy. Bilateral urinary bladder diverticuli greater on the right measuring 2.5 x 2.3 cm slightly larger com pared to previous. Stable enhancing T2 hyperintense lesion involving the right iliac wing and left fe moral neck are unchanged. New small suspicious enhancing marrow replacing lesions involving the left inferior pubic ramus and a cetabulum. Additional suspicious lesions involving the superior pubic rami right greater than left, r ight ilium adjacent to the SI joint, right superior sacrum. Additional lesion L5 vertebral body. Find ings suspicious for metastatic disease. Heterogeneous bone marrow signal involving the proximal femur s progressed from previous but similar in appearance. Recommend further evaluation with bone scan. MR/MR pelvis wo/w con [id number] IMPRESSION: 1. Prior prostatectomy with circumferential thickening and soft tissue enhance ment about the prostatic urethra eccentric to the right appears stable since 17 09 2. New suspicious small lesions involving the right sacrum and right ilium adj acent to the sacroiliac joint. Additional smaller lesions involving the superio r pubic rami, left inferior pubic ramus, and left acetabulum. Additional small lesion L5 vertebral body. Findings suspicious for metastatic disease. Recommend further evaluation with bone scan. 3. Diffuse heterogeneous signal abnormality in the proximal femurs was present previously but has progressed. 4. No perirectal or pelvic lymphadenopathy. No inguinal lymphadenopathy. 5. Incidental fat-containing inguinal hernias. 6. Bladder diverticuli larger on the right measuring 2.3 x 2.5 cm progressed f rom previous. .
== END 2020-07-10 07:56 | disposition home or self-care (01) ==
LOC: RADWPI 08:14
PROVIDERS: PCP Internal Medicine; Visit Provider Internal Medicine Hematology & Oncology
DX: C61 Malignant neoplasm of prostate (principal); N32.3 Diverticulum of bladder; K40.90 Unilateral inguinal hernia, without obstruction or gangrene, not specified as recurrent
CPT/HCPCS: 72197; A9579

== ENCOUNTER 2020-07-31 06:17 | Outpatient (CLI) | payer MEDICARE, OTHER, SELFPAY ==
[2020-07-31 09:27] LABS: Prostate Specific Antigen 0.752 ng/mL (0-4); Testosterone Total 259.3 ng/dL (193-740)
== END 2020-07-31 06:18 | disposition home or self-care (01) ==
LOC: ONCMED 06:20
PROVIDERS: PCP Internal Medicine; Visit Provider Internal Medicine Hematology & Oncology
DX: C61 Malignant neoplasm of prostate (principal)
CPT/HCPCS: 36415; 84153; 84403

== ENCOUNTER 2020-08-03 05:43 | Outpatient (CLI) | payer MEDICARE, OTHER, SELFPAY ==
--- NOTE | 2020-08-03 13:49 | ONC FU_ITS ---
Dr. Gómez follow up note Patient: Annika Montgomery Unit #: [id number]: 1935 Dicatated By: Michael Gómez M.D.Date of Visit:Aug 03, 2020 Onc Med Follow-up/Prog Note History of Present Illness: Annika Murray , is a 84-year-old gentleman with long-standing history of prostrate cancer, he was intially diagnosed with prostrate cancer in November 2001 with PSA 6.3 and abnormal TAMY underwent radical retropubic prostatectomy with demonstration of right seminal vesicle involvement subsequently underwent adjuvant XBRT. During follow-up, late rising of PSA was noted and PSA continued to go up slowly, as per urology note PSA doubling time was more than one year. Patient was offered adjuvant hormonal therapy but patient declined until recently in March 2018 his PSA was 23.3 and there was a distinct right sided induration on TAMY. Because of left knee pain he underwent MRI scan of lumbar spine on 08/05/2018 which shows T11, L4, L5 vertebral body abnormality, subsequently underwent bone scan on 09/03/2018 which revealed metastatic disease involving left L4 superior articular facet, metastatic disease involving the left fifth, left ninth and right 11th rib and possibly right 6 and seventh ribs, subacute T12 compression fracture and on 09/14/2018 he was started on bicalutamide and referred to oncology clinic for ADT as patient declined castration and for biphosphonate for bone metastases.Zoladex was added on 10/13/2018, Zoladex was discontinued on April 22, 2019 at patient's request because of related side effects like hot flashes, generalized body weakness and fatigue and Xgeva was changed to Every 6 months and followed with a PSA and physical exam Other active issue 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 Chronic left knee pain in the past knee replacement was suggested but patient has used alternative therapy for many years with some success.He was evaluated by Dr. boone and CT scan of thoracic spine was done on 12/15/2018 which showed nonacute appearing T12 approximately 20% height loss anteriorly wedge compression fracture with minimal retropulsion. 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 Patient went to see his primary care physician recently with the urinary signs symptom and urinalysis done on March 17, 2020 showed no sign of urine tract infection but he was treated with Macrobid, as patient had foul-smelling urine. And because of his lower back pain he had lumbar spine x-ray done on March 20, 2020 which showed mild lumbar curve convex left, grade 1 anterolisthesis L4 and L5 measuring 2.6 mm. No significant instability. Trace retrolisthesis L2 and L3 with mild disc space narrowing. Chronic anterior wedging at T12. Follow-up Axumin CT PET scan done on May 15, 2020 showed postsurgical changes from prior prostatectomy. Nonspecific, increased radiotracer uptake along the posterior aspect of the bladder but more inferiorly along the anterior inferior prostatectomy bed. Local regional recurrence is not excluded. Intense radiotracer uptake throughout the spine, sacrum and pelvis with more focal, intense area of uptake along the posterior left ninth rib and proximal right clavicle. Nonspecific intense focal radiotracer uptake along the left anterior frontal region, as per patient, he has small tumor in his left forehead for more than 10 years, Dr. Flynn in [place] was following. Started on bicalutamide 50 mg p.o. daily on May 23, 2020 as patient refused Zoladex. MRI scan of the pelvis done on July 10, 2020 showed prior prostatectomy with circumferential thickening and soft tissue enhancement about the prostatic urethra eccentric to the right appears stable since 2011. New suspicious small lesions involving the right sacrum and right ilium adjacent to sacroiliac joint. Additional smaller lesions involving the superior pubic rami, left inferior pubic rami, and left acetabulum. An additional small lesion L5 vertebral body. Findings suspicious for metastatic disease. Diffuse heterogeneous signal abnormality in the proximal femurs was present previously but has progressed. No perirectal or pelvic lymphadenopathy. Bladder diverticuli larger on the right measuring 2.3 x 2.5 cm progressed from previous. Patient refused lumbar sacral MRI scan because of inability to lay in the machine for prolonged. Came for follow-up, denies any specific complaint except persistent lower back pain and left hip pain but no radiation into left leg. 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 Patient was supposed to get MRI scan of lumbosacral as well as left hip but patient could not complete MRI scan of lumbosacral area but only completed hip MRI. His pain is under control with current pain medication. Denies any fever chills, denies any hematuria denies any melena or hematochezia. Medications: AmLODIPine Besylate 1 Tablet (of 10 mg) Oral daily, Bicalutamide 1 Tablet (of 50 mg) Oral daily, CeleXA 0.5 Tablet (of 10 mg) Oral daily, HYDROcodone-Acetaminophen 1 Tablet (of 5-325 mg) Oral b.i.d., Lantus 50 (100 Units/mL) Subcutaneous at bedtime, MetFORMIN HCl 1 Tablet (of 500 mg) Oral daily Allergies: Actos, Januvia, Penicillins, and Sulfa Antibiotics. Review of Systems: Constitutional - Appetite is good and weight is stable. No fever, chills, or night sweats. Energy level is poor/fair. Positive for hot flashes, ENMT - No sinus congestion/drainage. No mouth sores. No sore throat or difficulty swallowing, Hematologic/Lymphatic - No abnormal bruising or bleeding, Respiratory - No shortness of breath. No cough. No pleuritic pain or hemoptysis, Cardiovascular - No angina pain. No palpitations, Gastrointestinal - No nausea or vomiting. No heartburn or acid reflux. No diarrhea or constipation. No blood in the stool or black stools, Genitourinary (M) - No dysuria or hematuria. No urinary frequency. No urgency or incontinence, Musculoskeletal - Pain in left knee. Pt continues to discuss possibility of knee replacement, Neurologic - No headache or dizziness. No numbness/paresthesias or other focal neurologic symptoms, Psychiatric - No anxiety or depression. Pt reports difficulty falling and staying asleep. Vital Signs: Performed on Aug 03, 2020 13:07 Height - 69.00 in Weight - 203.4 lbs (HIGH) BSA - 2.08 sq.m BMI - 30.04 (HIGH) Temperature - 98.2 F (LOW) Pulse - 83 /min Respiration - 20 /min BP - 145/62 mm(hg) (HIGH) O2 Sat - 96 % Pain - 0 Performance Status: 1 - No physically strenuous activity, but ambulatory and able to carry out light or sedentary work (e.g. office work, light house work). (ECOG) Physical Examination: ENMT - .No mouth sores, no thrush, no jaundice, Respiratory - Lungs are clear to auscultation, Cardiovascular - Regular rate and rhythm of heart, Abdomen - Soft, bowel sounds present, Extremities - No visible edema. Lab/Imaging: Test performed on Jul 31, 2020 08:36 Testosterone, Total 259.3 ng/dL PSA 0.752 ng/mL Test performed on May 23, 2020 14:18 Sodium 137 mmol/L Potassium 4.0 mmol/L Chloride 105 mmol/L CO2 21 mmol/L Anion Gap 15.0 BUN 29 mg/dL Creatinine 0.8 mg/dL Cr Clearance (Est) 89.06 mL/min Glucose 247 mg/dL Calcium 9.3 mg/dL Osmolality - Calculated 289 mOsm/kg Protein, Total 7.0 g/dL Albumin 4.0 g/dL Globulin 3.0 g/dL Bilirubin, Total 0.4 mg/dL ALT (SGPT) 15 U/L AST (SGOT) 13 U/L Alkaline Phosphatase 107 IU/L WBC 10.7 10 3/uL RBC 5.07 10 6/uL HGB 15.5 g/dL HCT 48.2 % MCV 95.1 fL MCH 30.6 pg MCHC 32.2 g/dL RDW 14.7 % Platelet Count 221 10 3/cmm MPV 11.2 fL Neutrophils 7.13 10 3/uL Lymphocytes 2.4 10 3/uL Monocytes 0.7 10 3/uL Eosinophils 0.4 10 3/uL Basophils 0.0 10 3/uL Neutrophil % 66.6 % Lymphocyte % 22.1 % Monocyte % 6.4 % Eosinophil % 4.0 % Basophils % 0.4 % NRBC % 0 % Impression: 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 Patient was offered adjuvant hormonal therapy but patient declined. MRI scan lumbosacral done on 08/05/2018 showed T11, L4, L5 vertebral body abnormality Bone scan done on 09/03/2018 which showed metastatic disease involving L4. Articular facet, metastatic disease involving left fifth, left ninth and right 11 rib possibly right sixth and seventh ribs, subcutaneous T12 compression fracture. Started on bicalutamide on 09/14/2018 And Zoladex on 10/13/2018 Zoladex discontinued on 04/22/2019 at patient request because of related side effects like hot flashes and generalized body weakness and fatigue And Xgeva was changed to every 6 months Chronic left knee pain, in the past, knee replacement was suggested, patient opted for alternative treatment with some success. 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 Plan: Discussed with patient regarding his labs his PSA has gone down further 0.752 compared to 1.68 on June 29, 2020 and compared to 5.9 on March 27, 2020 and MRI scan of pelvic findings which shows findings suggestive of extensive metastatic disease. Clinically, patient is doing reasonably well in mild to moderate distress due to pelvic pain but under control with current pain medication patient could not get his MRI scan lumbosacral area done because of inability to stay in MRI machine for prolonged period. His PSA has gone down patient is on bicalutamide alone and still refusing Zoladex. At this point will consider bone scan as recommended by radiology to assess his bones and may consider referral to radiation oncology for palliative radiation to lower back or sacral area. Patient return to clinic after bone scan. Patient was advised in case there is a worsening of pain or any urine or stool incontinence, he need to go to hospital immediately. Signed By: Mcihael Gómez M.D. <<Signature on File>>
== END 2020-08-03 05:44 | disposition home or self-care (01) ==
LOC: ONCMED 05:45
PROVIDERS: PCP Internal Medicine; Visit Provider Internal Medicine Hematology & Oncology
DX: C61 Malignant neoplasm of prostate (principal); C79.51 Secondary malignant neoplasm of bone; R10.2 Pelvic and perineal pain; Z90.79 Acquired absence of other genital organ(s)
CPT/HCPCS: 99214

== ENCOUNTER 2020-08-15 09:13 | Outpatient (CLI) | payer MEDICARE, OTHER, SELFPAY ==
--- NOTE | 2020-08-15 09:35 | NM_ITS ---
WS: [id number] NUCLEAR MEDICINE WHOLE BODY BONE SCAN HISTORY: PROSTATE CA W/BONE METS/RESTAGING EVALUATION/BONE PAIN COMPARISON: 04/13/2019 TECHNIQUE: The patient was injected with 27.2 mCi of Technetium 99m HDP and serial whole-body scintig tommy have been performed with anterior and posterior images. Progression of the metastatic lesions within the skeleton since the prior examination. New uptake in the proximal LEFT humerus and in the RIGHT hip near the lesser trochanter. Radiographs were performed and there are no pathological fractures in these sites. The rib lesions are similar to the prior study. There is increased uptake near the RIGHT SC joint whi ch may be progression of the metastatic site. There is also new focal uptake in the RIGHT iliac side of the SI joint. Soft tissue uptake remains normal. Activity noted within the kidneys. Moderate AC joint disease. Uptake in the wrists, knees and ankles from arthritis. NM/NM bone scan whole body* [id number] IMPRESSION: 1. Mild progression of metastatic disease to the skeleton since 04/13/2019. Mos t concerning lesions are within the LEFT humerus and the RIGHT hip. Radiographs were performed of these locations and no pathological fracture or significant marrow changes were identified at this time. 2. New RIGHT iliac lesion. 3. Numerous lesions within the ribs and spine appear to be stable. 4. Indeterminate for an new lesion at the RIGHT sternoclavicular joint versus increasing arthritis.
--- NOTE | 2020-08-15 12:20 | XR_ITS ---
WS: [id number] RIGHT HIP HISTORY: BONE SCAN COMPARISON PROSTATE CANCER COMPARISON: Bone scan 08/15/2020 Right hip: No acute fracture or dislocation. No corresponding lytic or sclerotic lesion in the RIGHT hip near the lesser trochanter. No pathological fracture or bone destruction. XR/XR hip RT 2-3V wo/w pel* [id number] IMPRESSION: 1. No pathological hip fracture. 2. No destruction of the bony cortex.
--- NOTE | 2020-08-15 12:20 | XR_ITS ---
WS: [id number] LEFT HUMERUS: 2 VIEW(S) TECHNIQUE: AP and lateral. HISTORY: BONE SCAN COMPARISON PROSTATE CANCER COMPARISON: Bone scan 08/15/2020. No significant change in the marrow and no pathological fracture in the proximal LEFT humerus. This s ite was positive on the recent bone scan. There is some very minimal decreased density near the delto id insertion site. XR/[place] [id number] IMPRESSION: Minimal marrow changes in the proximal LEFT humerus in the site of the metastat ic lesion seen on the bone scan. No pathological fracture.
== END 2020-08-15 09:14 | disposition home or self-care (01) ==
PROVIDERS: PCP Internal Medicine; Visit Provider Internal Medicine Hematology & Oncology
DX: C61 Malignant neoplasm of prostate (principal); C79.51 Secondary malignant neoplasm of bone
CPT/HCPCS: 73060; 73502; 78306; A9561

== ENCOUNTER 2020-09-05 09:54 | Outpatient (CLI) | payer MEDICARE, OTHER, SELFPAY ==
[2020-09-05 10:40] LABS: Basophils % 0.3 %; Eosinophils # 0.3 10^3/uL (0.0-0.8); Eosinophils % 2.4 %; Hematocrit 46.7 % (42.0-52.0); Hemoglobin 15.8 g/dL (11.7-16.6); Lymphocytes # 2.4 10^3/uL (0.8-4.8); Lymphocytes % 19.6 %; Mean Corpuscular HGB Conc 33.8 g/dL (30.0-36.0); Mean Corpuscular Hemoglobin 31.2 pg (28.0-34.0); Mean Corpuscular Volume 92.1 fL (80-94); Mean Platelet Volume 11.7 fL (7.4-10.4); Monocytes # 0.7 10^3/uL (0.2-0.9); Monocytes % 6.2 %; Neutrophils # 8.52 10^3/uL (1.8-7.7); Neutrophils % 71.2 %; Nucleated Red Blood Cells % 0 %; Platelet Count 230 10^3/cmm (130-400); Red Blood Count 5.07 10^6/uL (4.1-5.3); Red Cell Distribution Width 13.2 % (12.1-15.1)
[2020-09-05 10:49] LABS: Alanine Aminotransferase 17 U/L (0-41); Albumin Level 4.1 g/dL (3.5-5.2); Alkaline Phosphatase 100 IU/L (40-130); Aspartate Amino Transferase 15 U/L (0-40); Blood Urea Nitrogen 21 mg/dL (8-23); Calcium 9.6 mg/dL (8.5-10.5); Carbon Dioxide 23 mmol/L (22-29); Chloride 105 mmol/L (98-107); Globulin 2.7 g/dL (1.3-4.6); Glucose 213 mg/dL (65-115); Osmolality Calculated 299 mOsm/kg (285-295); Sodium 140 mmol/L (136-145); Total Bilirubin 0.6 mg/dL (0.15-1.2); Total Protein 6.8 g/dL (6.6-8.7)
[2020-09-05 10:55] LABS: Anion Gap 16.2 (5-19); Potassium 4.2 mmol/L (3.5-5.1)
--- NOTE | 2020-09-05 17:02 | ONC FU_ITS ---
Dr. Gómez follow up note Patient: Annika Montgomery Unit #: [id number]: 1935 Dicatated By: Michael Gómez M.D.Date of Visit:Sep 05, 2020 Onc Med Follow-up/Prog Note History of Present Illness: Annika Murray , is a 84-year-old gentleman with long-standing history of prostrate cancer, he was intially diagnosed with prostrate cancer in November 2001 with PSA 6.3 and abnormal TAMY underwent radical retropubic prostatectomy with demonstration of right seminal vesicle involvement subsequently underwent adjuvant XBRT. During follow-up, late rising of PSA was noted and PSA continued to go up slowly, as per urology note PSA doubling time was more than one year. Patient was offered adjuvant hormonal therapy but patient declined until recently in March 2018 his PSA was 23.3 and there was a distinct right sided induration on TAMY. Because of left knee pain he underwent MRI scan of lumbar spine on 08/05/2018 which shows T11, L4, L5 vertebral body abnormality, subsequently underwent bone scan on 09/03/2018 which revealed metastatic disease involving left L4 superior articular facet, metastatic disease involving the left fifth, left ninth and right 11th rib and possibly right 6 and seventh ribs, subacute T12 compression fracture and on 09/14/2018 he was started on bicalutamide and referred to oncology clinic for ADT as patient declined castration and for biphosphonate for bone metastases.Zoladex was added on 10/13/2018, Zoladex was discontinued on April 22, 2019 at patient's request because of related side effects like hot flashes, generalized body weakness and fatigue and Xgeva was changed to Every 6 months and followed with a PSA and physical exam Other active issue 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 Chronic left knee pain in the past knee replacement was suggested but patient has used alternative therapy for many years with some success.He was evaluated by Dr. boone and CT scan of thoracic spine was done on 12/15/2018 which showed nonacute appearing T12 approximately 20% height loss anteriorly wedge compression fracture with minimal retropulsion. 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 Patient went to see his primary care physician recently with the urinary signs symptom and urinalysis done on March 17, 2020 showed no sign of urine tract infection but he was treated with Macrobid, as patient had foul-smelling urine. And because of his lower back pain he had lumbar spine x-ray done on March 20, 2020 which showed mild lumbar curve convex left, grade 1 anterolisthesis L4 and L5 measuring 2.6 mm. No significant instability. Trace retrolisthesis L2 and L3 with mild disc space narrowing. Chronic anterior wedging at T12. Follow-up Axumin CT PET scan done on May 15, 2020 showed postsurgical changes from prior prostatectomy. Nonspecific, increased radiotracer uptake along the posterior aspect of the bladder but more inferiorly along the anterior inferior prostatectomy bed. Local regional recurrence is not excluded. Intense radiotracer uptake throughout the spine, sacrum and pelvis with more focal, intense area of uptake along the posterior left ninth rib and proximal right clavicle. Nonspecific intense focal radiotracer uptake along the left anterior frontal region, as per patient, he has small tumor in his left forehead for more than 10 years, Dr. Flynn in [place] was following. Started on bicalutamide 50 mg p.o. daily on May 23, 2020 as patient refused Zoladex. MRI scan of the pelvis done on July 10, 2020 showed prior prostatectomy with circumferential thickening and soft tissue enhancement about the prostatic urethra eccentric to the right appears stable since 2011. New suspicious small lesions involving the right sacrum and right ilium adjacent to sacroiliac joint. Additional smaller lesions involving the superior pubic rami, left inferior pubic rami, and left acetabulum. An additional small lesion L5 vertebral body. Findings suspicious for metastatic disease. Diffuse heterogeneous signal abnormality in the proximal femurs was present previously but has progressed. No perirectal or pelvic lymphadenopathy. Bladder diverticuli larger on the right measuring 2.3 x 2.5 cm progressed from previous. Patient refused lumbar sacral MRI scan because of inability to lay in the machine for prolonged. Bone scan was done on August 15, 2020 showed mild progression of metastatic disease in the skeleton since May 2019 more concerning lesions are within left humerus and right hip and new right iliac lesion, numerous lesions within ribs and spine appears to be stable and indeterminate for new lesions at right sternoclavicular joint versus increasing arthritis, plain x-ray of right hip done on August 15, 2020 showed no pathological hip fracture no destruction of bony cortex, plain x-ray of left humerus done on August 15, 2020 showed minimal marrow changes in the proximal humerus and the site of metastatic lesion no impending fracture Came for follow-up, denies any specific complaint except persistent left lower back/hip pain but under control with current pain medication denies any pain in left arm or right hip. Tolerating daily Casodex well. No nausea or vomiting no diarrhea or constipation no fever chills. Medications: AmLODIPine Besylate 1 Tablet (of 10 mg) Oral daily, Bicalutamide 1 Tablet (of 50 mg) Oral daily, CeleXA 0.5 Tablet (of 10 mg) Oral daily, HYDROcodone-Acetaminophen 1 Tablet (of 5-325 mg) Oral b.i.d., Lantus 50 (100 Units/mL) Subcutaneous at bedtime, MetFORMIN HCl 1 Tablet (of 500 mg) Oral daily Allergies: Actos, Januvia, Penicillins, and Sulfa Antibiotics. Review of Systems: Constitutional - Appetite is good and weight is stable. No fever, chills. pr night sweats. Energy level is fair. Positive for hot flashes, ENMT - Positive for sinus congestion/drainage. No mouth sores. No sore throat or difficulty swallowing, Hematologic/Lymphatic - No abnormal bruising or bleeding, Respiratory - No shortness of breath. No cough. No pleuritic pain or hemoptysis, Cardiovascular - No angina pain. No palpitations, Gastrointestinal - No nausea or vomiting. No heartburn or acid reflux. No diarrhea or constipation. No blood in the stool or black stools, Genitourinary (M) - No dysuria or hematuria. No urinary frequency. No urgency or incontinence, Musculoskeletal - Positive for right knee pain, Neurologic - No headache or dizziness. No numbness/paresthesias or other focal neurologic symptoms, Psychiatric - No anxiety or depression. Pt reports difficulty falling and staying asleep. Vital Signs: Performed on Sep 05, 2020 10:37 Height - 69.00 in Weight - 206.0 lbs (HIGH) BSA - 2.09 sq.m BMI - 30.42 (HIGH) Temperature - 98.1 F (LOW) Pulse - 69 /min Respiration - 18 /min BP - 137/78 mm(hg) O2 Sat - 96 % Pain - 0 Performance Status: 0 - Fully active, able to carry on all predisease activities without restrictions. (ECOG) Physical Examination: ENMT - No mouth sores, no thrush, no jaundice, Respiratory - Lungs are clear to auscultation, Cardiovascular - Regular rate and rhythm of heart, Abdomen - Soft, bowel sounds present, Extremities - No visible edema or rash. Lab/Imaging: Test performed on Jul 31, 2020 08:36 Testosterone, Total 259.3 ng/dL PSA 0.752 ng/mL Test performed on May 23, 2020 14:18 Sodium 137 mmol/L Potassium 4.0 mmol/L Chloride 105 mmol/L CO2 21 mmol/L Anion Gap 15.0 BUN 29 mg/dL Creatinine 0.8 mg/dL Cr Clearance (Est) 89.06 mL/min Glucose 247 mg/dL Calcium 9.3 mg/dL Osmolality - Calculated 289 mOsm/kg Protein, Total 7.0 g/dL Albumin 4.0 g/dL Globulin 3.0 g/dL Bilirubin, Total 0.4 mg/dL ALT (SGPT) 15 U/L AST (SGOT) 13 U/L Alkaline Phosphatase 107 IU/L WBC 10.7 10 3/uL RBC 5.07 10 6/uL HGB 15.5 g/dL HCT 48.2 % MCV 95.1 fL MCH 30.6 pg MCHC 32.2 g/dL RDW 14.7 % Platelet Count 221 10 3/cmm MPV 11.2 fL Neutrophils 7.13 10 3/uL Lymphocytes 2.4 10 3/uL Monocytes 0.7 10 3/uL Eosinophils 0.4 10 3/uL Basophils 0.0 10 3/uL Neutrophil % 66.6 % Lymphocyte % 22.1 % Monocyte % 6.4 % Eosinophil % 4.0 % Basophils % 0.4 % NRBC % 0 % Impression: 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 Patient was offered adjuvant hormonal therapy but patient declined. MRI scan lumbosacral done on 08/05/2018 showed T11, L4, L5 vertebral body abnormality Bone scan done on 09/03/2018 which showed metastatic disease involving L4. Articular facet, metastatic disease involving left fifth, left ninth and right 11 rib possibly right sixth and seventh ribs, subcutaneous T12 compression fracture. Started on bicalutamide on 09/14/2018 And Zoladex on 10/13/2018 Zoladex discontinued on 04/22/2019 at patient request because of related side effects like hot flashes and generalized body weakness and fatigue And Xgeva was changed to every 6 months Chronic left knee pain, in the past, knee replacement was suggested, patient opted for alternative treatment with some success. 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 Plan: Discussed with patient regarding his labs white blood count 12 hemoglobin 15.8 hematocrit 46.7 platelets 230,000 CMP within normal limits except glucose 213 and bone scan findings and plain x-ray of left humerus and right hip which showed no impending fracture but bone scan shows disease progression, his PSA is pending Clinically, patient is doing well with no new signs symptom but persistent left lower back/hip pain but under control with current pain medication, patient is very active physically. Discussed with patient regarding his bone scan finding and we will recommend him to restart Xgeva to prevent skeletal related complication, patient agreed. So we will obtain approval from his insurance and then start him on monthly Xgeva. Also discussed about role of Zoladex but patient declined rather wants to continue with Casodex alone knowing the risk versus benefits. His PSA is pending, patient will return to clinic 1 month after his dose of Xgeva with CBC CMP PSA and testosterone level Mild leukocytosis, etiology unclear no sign of infection, will monitor Mild hyperglycemia patient was advised to watch his diet and follow his PMDs recommendations. Also discussed about palliative radiation therapy to the lower back/left hip but patient declined as current pain medication is controlling his pain very well. Signed By: Michael Gómez M.D. <<Signature on File>>
== END 2020-09-05 09:55 | disposition home or self-care (01) ==
LOC: ONCMED 09:57
PROVIDERS: PCP Internal Medicine; Visit Provider Internal Medicine Hematology & Oncology
DX: C61 Malignant neoplasm of prostate (principal); C79.51 Secondary malignant neoplasm of bone; R97.20 Elevated prostate specific antigen [PSA]; D72.829 Elevated white blood cell count, unspecified; R73.9 Hyperglycemia, unspecified; M54.5 Low back pain; M25.552 Pain in left hip; Z79.899 Other long term (current) drug therapy; Z79.818 Long term (current) use of other agents affecting estrogen receptors and estrogen levels
CPT/HCPCS: 36415; 80053; 84153; 85025; 99214

== ENCOUNTER 2020-09-14 06:09 | Outpatient (CLI) | payer MEDICARE, OTHER, SELFPAY ==
[2020-09-14] MEDS: denosumab 120 mg SDV SUBCUT (14:12)
== END 2020-09-14 06:10 | disposition home or self-care (01) ==
LOC: ONCMED 06:12
PROVIDERS: PCP Internal Medicine; Visit Provider Internal Medicine Hematology & Oncology
DX: Z51.11 Encounter for antineoplastic chemotherapy (principal); C61 Malignant neoplasm of prostate
CPT/HCPCS: 96372; J0897

== ENCOUNTER 2020-10-16 08:15 | Outpatient (CLI) | payer MEDICARE, OTHER, SELFPAY ==
[2020-10-16 09:13] LABS: Basophils % 0.5 %; Eosinophils # 0.2 10^3/uL (0.0-0.8); Eosinophils % 2.5 %; Hematocrit 50.4 % (42.0-52.0); Hemoglobin 16.5 g/dL (11.7-16.6); Lymphocytes # 2.2 10^3/uL (0.8-4.8); Lymphocytes % 24.5 %; Mean Corpuscular HGB Conc 32.7 g/dL (30.0-36.0); Mean Corpuscular Hemoglobin 30.1 pg (28.0-34.0); Mean Corpuscular Volume 91.8 fL (80-94); Mean Platelet Volume 11.1 fL (7.4-10.4); Monocytes # 0.5 10^3/uL (0.2-0.9); Monocytes % 5.2 %; Neutrophils # 5.89 10^3/uL (1.8-7.7); Neutrophils % 66.7 %; Nucleated Red Blood Cells % 0 %; Platelet Count 238 10^3/cmm (130-400); Red Blood Count 5.49 10^6/uL (4.1-5.3); Red Cell Distribution Width 12.7 % (12.1-15.1); White Blood Count 8.8 10^3/uL (4.0-10.0)
[2020-10-16 10:20] LABS: Prostate Specific Antigen 0.452 ng/mL (0-4)
[2020-10-16 10:31] LABS: Alanine Aminotransferase 14 U/L (0-41); Albumin Level 4.1 g/dL (3.5-5.2); Alkaline Phosphatase 104 IU/L (40-130); Anion Gap 13.3 (5-19); Aspartate Amino Transferase 12 U/L (0-40); Blood Urea Nitrogen 18 mg/dL (8-23); Calcium 9.4 mg/dL (8.5-10.5); Carbon Dioxide 26 mmol/L (22-29); Chloride 100 mmol/L (98-107); Globulin 3.3 g/dL (1.3-4.6); Glucose 342 mg/dL (65-115); Osmolality Calculated 295 mOsm/kg (285-295); Potassium 4.3 mmol/L (3.5-5.1); Sodium 135 mmol/L (136-145); Total Bilirubin 0.6 mg/dL (0.15-1.2); Total Protein 7.4 g/dL (6.6-8.7)
== END 2020-10-16 08:16 | disposition home or self-care (01) ==
LOC: ONCMED 08:21
PROVIDERS: PCP Internal Medicine; Visit Provider Internal Medicine Hematology & Oncology
DX: C61 Malignant neoplasm of prostate (principal); C79.51 Secondary malignant neoplasm of bone
CPT/HCPCS: 36415; 80053; 84153; 85025

== ENCOUNTER 2020-10-23 05:49 | Outpatient (RCR) | payer MEDICARE, OTHER, SELFPAY ==
[2020-10-17] MEDS: denosumab 120 mg SDV SUBCUT (14:15)
[2020-10-17] MEDS: lidocaine 1% INJ 20 mL INJECTION (14:20)
--- NOTE | 2020-10-17 14:23 | ONC FU_ITS ---
Dr. Gómez follow up note Patient: Annika Montgomery Unit #: [id number]: 1935 Dicatated By: Michael Gómez M.D.Date of Visit:Oct 17, 2020 Onc Med Follow-up/Prog Note History of Present Illness: Annika Murray , is a 84-year-old gentleman with long-standing history of prostrate cancer, he was intially diagnosed with prostrate cancer in November 2001 with PSA 6.3 and abnormal TAMY underwent radical retropubic prostatectomy with demonstration of right seminal vesicle involvement subsequently underwent adjuvant XBRT. During follow-up, late rising of PSA was noted and PSA continued to go up slowly, as per urology note PSA doubling time was more than one year. Patient was offered adjuvant hormonal therapy but patient declined until recently in March 2018 his PSA was 23.3 and there was a distinct right sided induration on TAMY. Because of left knee pain he underwent MRI scan of lumbar spine on 08/05/2018 which shows T11, L4, L5 vertebral body abnormality, subsequently underwent bone scan on 09/03/2018 which revealed metastatic disease involving left L4 superior articular facet, metastatic disease involving the left fifth, left ninth and right 11th rib and possibly right 6 and seventh ribs, subacute T12 compression fracture and on 09/14/2018 he was started on bicalutamide and referred to oncology clinic for ADT as patient declined castration and for biphosphonate for bone metastases.Zoladex was added on 10/13/2018, Zoladex was discontinued on April 22, 2019 at patient's request because of related side effects like hot flashes, generalized body weakness and fatigue and Xgeva was changed to Every 6 months and followed with a PSA and physical exam Other active issue 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 Chronic left knee pain in the past knee replacement was suggested but patient has used alternative therapy for many years with some success.He was evaluated by Dr. boone and CT scan of thoracic spine was done on 12/15/2018 which showed nonacute appearing T12 approximately 20% height loss anteriorly wedge compression fracture with minimal retropulsion. 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 Patient went to see his primary care physician recently with the urinary signs symptom and urinalysis done on March 17, 2020 showed no sign of urine tract infection but he was treated with Macrobid, as patient had foul-smelling urine. And because of his lower back pain he had lumbar spine x-ray done on March 20, 2020 which showed mild lumbar curve convex left, grade 1 anterolisthesis L4 and L5 measuring 2.6 mm. No significant instability. Trace retrolisthesis L2 and L3 with mild disc space narrowing. Chronic anterior wedging at T12. Follow-up Axumin CT PET scan done on May 15, 2020 showed postsurgical changes from prior prostatectomy. Nonspecific, increased radiotracer uptake along the posterior aspect of the bladder but more inferiorly along the anterior inferior prostatectomy bed. Local regional recurrence is not excluded. Intense radiotracer uptake throughout the spine, sacrum and pelvis with more focal, intense area of uptake along the posterior left ninth rib and proximal right clavicle. Nonspecific intense focal radiotracer uptake along the left anterior frontal region, as per patient, he has small tumor in his left forehead for more than 10 years, Dr. Flynn in [place] was following. Started on bicalutamide 50 mg p.o. daily on May 23, 2020 as patient refused Zoladex. MRI scan of the pelvis done on July 10, 2020 showed prior prostatectomy with circumferential thickening and soft tissue enhancement about the prostatic urethra eccentric to the right appears stable since 2011. New suspicious small lesions involving the right sacrum and right ilium adjacent to sacroiliac joint. Additional smaller lesions involving the superior pubic rami, left inferior pubic rami, and left acetabulum. An additional small lesion L5 vertebral body. Findings suspicious for metastatic disease. Diffuse heterogeneous signal abnormality in the proximal femurs was present previously but has progressed. No perirectal or pelvic lymphadenopathy. Bladder diverticuli larger on the right measuring 2.3 x 2.5 cm progressed from previous. Patient refused lumbar sacral MRI scan because of inability to lay in the machine for prolonged. Bone scan was done on August 15, 2020 showed mild progression of metastatic disease in the skeleton since May 2019 more concerning lesions are within left humerus and right hip and new right iliac lesion, numerous lesions within ribs and spine appears to be stable and indeterminate for new lesions at right sternoclavicular joint versus increasing arthritis, plain x-ray of right hip done on August 15, 2020 showed no pathological hip fracture no destruction of bony cortex, plain x-ray of left humerus done on August 15, 2020 showed minimal marrow changes in the proximal humerus and the site of metastatic lesion no impending fracture Came for follow-up, complaining of progressive pain in left hip/lower back and now in left arm denies any trauma to these areas. 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 But requiring more pain medication, no dysuria or hematuria, no fever chills, appetite is good, Tolerating bicalutamide alone well along with monthly Xgeva Medications: AmLODIPine Besylate 1 Tablet (of 10 mg) Oral daily, Bicalutamide 1 Tablet (of 50 mg) Oral daily, CeleXA 0.5 Tablet (of 10 mg) Oral daily, Clorazepate Dipotassium 1 Tablet (of 7.5 mg) Oral daily, HYDROcodone-Acetaminophen 1 Tablet (of 5-325 mg) Oral b.i.d., Lantus 50 (100 Units/mL) Subcutaneous at bedtime, MetFORMIN HCl 1 Tablet (of 500 mg) Oral daily Allergies: Actos, Januvia, Penicillins, and Sulfa Antibiotics. Review of Systems: Review of Systems is not available for this patient. Vital Signs: Performed on Oct 17, 2020 13:27 Height - 69.00 in Weight - 207. lbs (HIGH) BSA - 2.10 sq.m BMI - 30.57 (HIGH) Temperature - 97.7 F (LOW) Pulse - 87 /min Respiration - 22 /min BP - 150/68 mm(hg) (HIGH) O2 Sat - 96 % Pain - 6 Performance Status: 1 - No physically strenuous activity, but ambulatory and able to carry out light or sedentary work (e.g. office work, light house work). (ECOG) Physical Examination: ENMT - No mouth sores, no thrush, no jaundice, Respiratory - Lungs are clear to auscultation, Cardiovascular - Regular rate and rhythm of heart, Abdomen - Soft, bowel sounds present, no focal tenderness in the back, Extremities - No visible edema no focal tenderness in the left arm. Lab/Imaging: Test performed on Oct 16, 2020 08:35 Sodium 135 mmol/L Potassium 4.3 mmol/L Chloride 100 mmol/L CO2 26 mmol/L Anion Gap 13.3 BUN 18 mg/dL Creatinine 0.9 mg/dL Cr Clearance (Est) 82.1900 mL/min Glucose 342 mg/dL Osmolality - Calculated 295 mOsm/kg Calcium 9.4 mg/dL Protein, Total 7.4 g/dL Albumin 4.1 g/dL Globulin 3.3 g/dL Bilirubin, Total 0.6 mg/dL ALT (SGPT) 14 U/L AST (SGOT) 12 U/L Alkaline Phosphatase 104 IU/L WBC 8.8 10 3/uL RBC 5.49 10 6/uL HGB 16.5 g/dL HCT 50.4 % MCV 91.8 fL MCH 30.1 pg MCHC 32.7 g/dL RDW 12.7 % Platelet Count 238 10 3/cmm MPV 11.1 fL Neutrophils 5.89 10 3/uL Lymphocytes 2.2 10 3/uL Monocytes 0.5 10 3/uL Eosinophils 0.2 10 3/uL Basophils 0.0 10 3/uL Neutrophil % 66.7 % Lymphocyte % 24.5 % Monocyte % 5.2 % Eosinophil % 2.5 % Basophils % 0.5 % NRBC % 0 % PSA 0.452 ng/mL Test performed on Jul 31, 2020 08:36 Testosterone, Total 259.3 ng/dL Impression: 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 Patient was offered adjuvant hormonal therapy but patient declined. MRI scan lumbosacral done on 08/05/2018 showed T11, L4, L5 vertebral body abnormality Bone scan done on 09/03/2018 which showed metastatic disease involving L4. Articular facet, metastatic disease involving left fifth, left ninth and right 11 rib possibly right sixth and seventh ribs, subcutaneous T12 compression fracture. Started on bicalutamide on 09/14/2018 And Zoladex on 10/13/2018 Zoladex discontinued on 04/22/2019 at patient request because of related side effects like hot flashes and generalized body weakness and fatigue And Xgeva was changed to every 6 months Chronic left knee pain, in the past, knee replacement was suggested, patient opted for alternative treatment with some success. 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 His last bone scan done in July 2020, did showed increased uptake in left humerus, right hip and new right iliac bone lesion and other spinal areas and ribs. Although his follow-up labs shows PSA continue to improve so concern is whether he has castrate resistance disease causing worsening of her symptoms or due to physical activity. We will refer him to radiation oncology for evaluation Case was discussed with Dr. Chacon radiation oncology, who would order required scans for further evaluation. In the meantime we would again, recommend adding Zoladex for appropriate ADT as Casodex alone may not be sufficient. Finally, patient agreed, will proceed with Zoladex 10.8 mg every 3 months but will obtain approval from his insurance prior to the treatment and in the meantime continue monthly Xgeva and Patient was advised to avoid heavy lifting with left arm and otherwise until evaluated by radiation therapy. And if there is a sudden increase in pain, he need to call us or go to hospital for evaluation patient will return to clinic in 1 month with CMP PSA testosterone levels. Signed By: Michael Gómez M.D. <<Signature on File>>
[2020-10-17] MEDS: goserelin acetate 10.8 mg Implant IM (15:45)
--- NOTE | 2020-10-23 15:40 | N.ONRAD NP_ITS ---
Radiation Oncology Consultation Patient Name: Annika Montgomery Date of : 1935 Date of Service: 10/20/2020 Attending Physician: Efren Chacon M.D. Annika Montgomery was seen in consultation this afternoon at the request of Taylor Gómez M.D. for consideration of palliative radiotherapy for the management of his metastatic prostate cancer. The patient was diagnosed in 2001 after presenting with an abnormal digital rectal exam (initial PSA 6.3 ng/mL; [place] Score 3+4). A radical prostatectomy was performed with pathology identifying seminal vesicle involvement. Biochemical failure was noted in March 2018 (PSA was 23.3 ng/mL). The patient's previous medical encounters have been personally evaluated in [facility]. A bone scan ordered in August of 2018 revealed metastatic disease involving the ribs, lower thoracic spine, and lumbar spine and total androgen suppression was initiated with Xgeva. GnRH agonist was discontinued at the patient's request due to adverse effects in March 2019. An Axumin PET scan ordered on May 15, 2020 because of rising PSA (5.5 ng/mL) demonstrated radiotracer uptake throughout the spine, sacrum, and pelvis concerning for bony metastatic disease. Casodex was resumed and he refused a radiation oncology consultation. A bone scan completed on August 15, 2020 (independently visualized in [facility]) confirmed progression of metastatic disease with the most worrisome lesions within the left humerus and the right hip. The patient agreed to resume Xgeva but has continued to refuse Zoladex. At his last appointment a few days ago, he described progressive left hip and lower back pain and set left arm pain. A GnRH agonist was administered. His PSA was 0.45 ng/mL with a low normal testosterone. I discussed with Mr. Montgomery the role for palliative radiotherapy. He would like to defer treatment until his pain is significant to warrant therapy (currently has minimal pain). Signed by: Dr. Efren Chacon 10/23/2020 3:38:43 PM
== END 2020-10-29 23:59 | disposition home or self-care (01) ==
LOC: ONCMED 05:49
PROVIDERS: PCP Internal Medicine; Visit Provider Radiology Radiation Oncology
DX: Z51.12 Encounter for antineoplastic immunotherapy (principal); C79.51 Secondary malignant neoplasm of bone; C61 Malignant neoplasm of prostate; M79.602 Pain in left arm; M54.5 Low back pain; M25.552 Pain in left hip; Z90.79 Acquired absence of other genital organ(s); Z92.3 Personal history of irradiation; Z79.818 Long term (current) use of other agents affecting estrogen receptors and estrogen levels; Z87.440 Personal history of urinary (tract) infections; Z79.899 Other long term (current) drug therapy
CPT/HCPCS: 96372; 96402; 99215; J0897; J9202

== ENCOUNTER 2020-11-21 05:25 | Outpatient (RCR) | payer MEDICARE, OTHER, SELFPAY ==
[2020-11-20 09:49] LABS: Prostate Specific Antigen 0.251 ng/mL (0-4)
[2020-11-20 10:00] LABS: Alanine Aminotransferase 13 U/L (0-41); Albumin Level 4.1 g/dL (3.5-5.2); Alkaline Phosphatase 89 IU/L (40-130); Anion Gap 13.2 (5-19); Aspartate Amino Transferase 12 U/L (0-40); Blood Urea Nitrogen 21 mg/dL (8-23); Calcium 9.8 mg/dL (8.5-10.5); Carbon Dioxide 28 mmol/L (22-29); Chloride 101 mmol/L (98-107); Globulin 2.8 g/dL (1.3-4.6); Glucose 266 mg/dL (65-115); Osmolality Calculated 298 mOsm/kg (285-295); Potassium 4.2 mmol/L (3.5-5.1); Sodium 138 mmol/L (136-145); Total Bilirubin 0.6 mg/dL (0.15-1.2); Total Protein 6.9 g/dL (6.6-8.7)
[2020-11-20 11:24] LABS: Testosterone Total 2.8 ng/dL (193-740)
[2020-11-21] MEDS: denosumab 120 mg SDV SUBCUT (14:30)
--- NOTE | 2020-11-27 10:39 | ONC FU_ITS ---
[facility] Patient Note Patient: Annika Montgomery Unit #: [id number]: [id number] Dictated By: Yann CrooksDate of Visit: Nov 21, 2020 Onc MED Follow-Up/Prog Note Chief Complaint: Prostrate cancer with bone metastases History of Present Illness: Mr Montgomery is an 84-year-old gentleman with long-standing history of prostate cancer. He was initially diagnosed with prostate cancer in November 2001 with PSA 6.3 and abnormal TAMY. He underwent radical retropubic prostatectomy with demonstration of right seminal vesicle involvement subsequently underwent adjuvant XBRT. During follow-up, late rising of PSA was noted and PSA continued to go up slowly. Per urology note, the PSA doubling time was more than one year. Mr Montgomery was offered adjuvant hormonal therapy but patient declined. In March 2018, his PSA was 23.3 and there was a distinct right sided induration on TAMY. Because of left knee pain he underwent MRI scan of lumbar spine on 08/05/2018 which shows T11, L4, L5 vertebral body abnormality. He subsequently underwent bone scan on 09/03/2018 which revealed metastatic disease involving left L4 superior articular facet, metastatic disease involving the left fifth, left ninth and right 11th rib and possibly right 6 and seventh ribs, subacute T12 compression fracture. On 09/14/2018 he was started on bicalutamide and referred to oncology clinic for ADT (as patient declined castration) and for biphosphonate for bone metastases. Zoladex and monthly Xgeva were added on 10/13/2018. The Zoladex was discontinued on April 22, 2019 at patient's request because of related side effects like hot flashes, generalized body weakness and fatigue. The Xgeva was changed to every 6 months and he was followed with a PSA and physical exam. 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 Chronic left knee pain-in the past knee replacement was suggested but patient has used alternative therapy for many years with some success. He was evaluated by and CT scan of thoracic spine was done on 12/15/2018 which showed nonacute appearing T12 approximately 20% height loss anteriorly wedge compression fracture with minimal retropulsion. 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 Mr Montgomery went to see his primary care physician with the urinary signs symptoms. A urinalysis done on March 17, 2020 showed no sign of urine tract infection but he was treated with Macrobid, as patient had foul-smelling urine. And because of his lower back pain he had lumbar spine x-ray done on March 20, 2020 which showed mild lumbar curve convex left, grade 1 anterolisthesis L4 and L5 measuring 2.6 mm. No significant instability. Trace retrolisthesis L2 and L3 with mild disc space narrowing. Chronic anterior wedging at T12. Follow-up Axumin CT PET scan done on May 15, 2020 showed postsurgical changes from prior prostatectomy. Nonspecific, increased radiotracer uptake along the posterior aspect of the bladder but more inferiorly along the anterior inferior prostatectomy bed. Local regional recurrence is not excluded. Intense radiotracer uptake throughout the spine, sacrum and pelvis with more focal, intense area of uptake along the posterior left ninth rib and proximal right clavicle. Nonspecific intense focal radiotracer uptake along the left anterior frontal region, as per patient, he has small tumor in his left forehead for more than 10 years, Dr. Flynn in [place] was following. Started on bicalutamide 50 mg p.o. daily on May 23, 2020 as patient refused Zoladex. MRI scan of the pelvis done on July 10, 2020 showed prior prostatectomy with circumferential thickening and soft tissue enhancement about the prostatic urethra eccentric to the right appears stable since 2011. New suspicious small lesions involving the right sacrum and right ilium adjacent to sacroiliac joint. Additional smaller lesions involving the superior pubic rami, left inferior pubic rami, and left acetabulum. An additional small lesion L5 vertebral body. Findings suspicious for metastatic disease. Diffuse heterogeneous signal abnormality in the proximal femurs was present previously but has progressed. No perirectal or pelvic lymphadenopathy. Bladder diverticuli larger on the right measuring 2.3 x 2.5 cm progressed from previous. Patient refused lumbar sacral MRI scan because of inability to lay in the machine for prolonged. Bone scan was done on August 15, 2020 showed mild progression of metastatic disease in the skeleton since May 2019. There were more concerning lesions within the left humerus and right hip and new right iliac lesion. Numerous lesions within ribs and spine appears to be stable and indeterminate for new lesions at right sternoclavicular joint versus increasing arthritis. Plain x-ray of right hip done on August 15, 2020 showed no pathological hip fracture no destruction of bony cortex. Plain x-ray of left humerus done on August 15, 2020 showed minimal marrow changes in the proximal humerus and the site of metastatic lesion no impending fracture. Mr. Montgomery had follow-up with Dr. Gómez on October 17, 2020. At that time he had developed some worsening pain in the left hip/lower back and the left arm. He was requiring more pain medication to control the pain. He was referred to Dr. Chacon in radiation oncology and it was elected to hold any radiation as the patient was not complaining of much pain at that visit. Dr. Gómez also recommended that he resume Zoladex as the Casodex alone did not seem to be controlling his disease. His Xgeva was resumed at monthly dosing on September 14, 2020. Mr. Montgomery is here today for follow-up. He is due for monthly Zometa. He states his arm pain is much better. He has no concerns with that today. He states he has some chronic back pain but does not think it is really much worse than what it has been. He denies any fever or chills. He states his appetite is down but he is having abdominal fullness and pain in the mid to right and left lower quad. He denies any lower extremity edema. He denies any constipation. He denies any urinary frequency or hesitancy. He states his urine seems to be better overall than it has been in quite some time even at night. He states the abdominal fullness is worse when he bends over. It is noted on his chart that he is only gained 1.4 pounds. His states that she has noticed that his abdomen is getting bigger and bigger and he is eating less and less. Denies any nausea or vomiting. He states he may get queasy once in a while. He states he is really not had any heartburn. He has no specific complaints other than the abdominal discomfort/pain/fullness. He states it is impacting his activities of daily living. 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 His ECOG is 1. He states he has tolerated the Zoladex well as of September. He has not had any increase in hot flashes or any other side effects that he is aware of at this time. He denies any bone pain worsening with the Xgeva. Past Medical History: Colon polyps Hypertension Osteoarthritis Peripheral neuropathy Type II diabetes Past Surgical History: Colon resection Excision of plantars wart from left foot Hernia repair Left arthroscopic knee Radical prostatectomy Allergies: Actos, Januvia, Penicillins, and Sulfa Antibiotics. Medications: AmLODIPine Besylate 1 Tablet (of 10 mg) Oral daily Bicalutamide 1 Tablet (of 50 mg) Oral daily CeleXA 0.5 Tablet (of 10 mg) Oral daily Clorazepate Dipotassium 1 Tablet (of 7.5 mg) Oral daily HYDROcodone-Acetaminophen 1 Tablet (of 5-325 mg) Oral b.i.d. Lantus 50 (100 Units/mL) Subcutaneous at bedtime MetFORMIN HCl 1 Tablet (of 500 mg) Oral daily Family History: Mr. Montgomery's mother at age 90. Mr. Montgomery's father at age 82: stroke. Mr. Montgomery has 1 sister who is : brain cancer. 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 Mr. Montgomery has never smoked. He has no history of drinking. Review Of Symptoms: Constitutional Denies fevers, chills, night sweats, excessive fatigue or weight loss. Decreased appetite. Allergic/Immunologic No reactions. Eyes Denies significant visual changes. No diplopia. No amaurosis. ENMT Denies changes in hearing, sore throat, mouth sores, difficulty or changes in swallowing ability, and/or sinus drainage. Hematologic/Lymphatic Denies easy bruising or bleeding. The patient denies any tender or palpable lymph nodes. Respiratory Denies dyspnea on exertion, chest pain, cough or hemoptysis. Denies orthopnea. Cardiovascular Denies anginal chest pain, palpitations or orthopnea. Gastrointestinal Denies nausea, vomiting, diarrhea, GI bleeding, or constipation. Denies change in bowel habits and/or stool color, no heartburn or early satiety. Abdominal fullness and bloating-see above. Genitourinary (M) Denies hematuria, dysuria, increased frequency, urgency, hesitancy or incontinence. Musculoskeletal Denies joint pain, swelling or redness. No decreased range of motion. Integumentary Denies chronic rashes, inflammation, ulcerations or skin changes. Neurologic Denies headache, blurred vision, and no areas of focal weakness or numbness. Normal gait. No sensory problems. Psychiatric Denies insomnia, depression, jean-claude or mood swings. Vital Signs: Performed on Nov 21, 2020 14:38 Height - 69.00 in Weight - 210 lbs (HIGH) BSA - 2.11 sq.m BMI - 31.01 (HIGH) Temperature - 97.1 F (LOW) Pulse - 88 /min Respiration - 18 /min BP - 156/77 mm(hg) (HIGH) O2 Sat - 94 % (LOW) Pain - 0 Fatigue - 2,1 - No physically strenuous activity, but ambulatory and able to carry out light or sedentary work (e.g. office work, light house work). (ECOG) Physical Examination: Constitutional Alert, oriented, no acute distress. Skin pink, warm and dry. Head Normocephalic; atraumatic. Eyes Conjunctivae and sclerae are clear and without icterus. Pupils are reactive and equal. Hematologic/Lymphatic No petechiae or purpura. No tender or palpable lymph nodes in the cervical or supraclavicular areas. Respiratory Lungs are clear to auscultation without rhonchi or wheezing. Cardiovascular Regular rate and rhythm of heart without murmurs,clicks, gallops or rubs. Abdomen Non-tender, non-distended, no masses or ascites. Good bowel sounds noted in all quads. No guarding or rebound tenderness. No pulsatile masses. Back/Spine Non-tender to palpation. Extremities No visible deformities, no cyanosis, clubbing or edema. Musculoskeletal No tenderness or swelling, normal range of motion without obvious weakness. Integumentary No rashes or lesions. Neurologic No sensory or motor deficits, normal cerebellar function, normal gait. Psychiatric Alert and oriented times three. Coherent speech. Verbalizes understanding of our discussions today. Laboratory:Test performed on Oct 16, 2020 08:35 Sodium 135 mmol/L Potassium 4.3 mmol/L Chloride 100 mmol/L CO2 26 mmol/L Anion Gap 13.3 BUN 18 mg/dL Creatinine 0.9 mg/dL Cr Clearance (Est) 82.1900 mL/min Glucose 342 mg/dL Osmolality - Calculated 295 mOsm/kg Calcium 9.4 mg/dL Protein, Total 7.4 g/dL Albumin 4.1 g/dL Globulin 3.3 g/dL Bilirubin, Total 0.6 mg/dL ALT (SGPT) 14 U/L AST (SGOT) 12 U/L Alkaline Phosphatase 104 IU/L WBC 8.8 10 3/uL RBC 5.49 10 6/uL HGB 16.5 g/dL HCT 50.4 % MCV 91.8 fL MCH 30.1 pg MCHC 32.7 g/dL RDW 12.7 % Platelet Count 238 10 3/cmm MPV 11.1 fL Neutrophils 5.89 10 3/uL Lymphocytes 2.2 10 3/uL Monocytes 0.5 10 3/uL Eosinophils 0.2 10 3/uL Basophils 0.0 10 3/uL Neutrophil % 66.7 % Lymphocyte % 24.5 % Monocyte % 5.2 % Eosinophil % 2.5 % Basophils % 0.5 % NRBC % 0 % PSA 0.452 ng/mL Test performed on Jul 31, 2020 08:36 Testosterone, Total 259.3 ng/dL Impression: 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 Patient was offered adjuvant hormonal therapy but patient declined. MRI scan lumbosacral done on 08/05/2018 showed T11, L4, L5 vertebral body abnormality Bone scan done on 09/03/2018 which showed metastatic disease involving L4. Articular facet, metastatic disease involving left fifth, left ninth and right 11 rib possibly right sixth and seventh ribs, subcutaneous T12 compression fracture. Started on bicalutamide on 09/14/2018 And Zoladex on 10/13/2018 Zoladex discontinued on 04/22/2019 at patient request because of related side effects like hot flashes and generalized body weakness and fatigue And Xgeva was changed to every 6 months Chronic left knee pain, in the past, knee replacement was suggested, patient opted for alternative treatment with some success. 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 Plan: PROBLEMS ADDRESSED TODAY 1. Metastatic prostate cancer with extensive bone metastasis A. Continue with Zoladex 10.8 mg every 3 months last given on October 17, 2020-due January 15, 2021. B. Continue with Xgeva 120 mg monthly last dose given on October 17, 2020. C. He states he is still taking bicalutamide 50 mg daily. D. His chemistry and PSA from today were reviewed in detail and discussed with Mr. and Mrs. Montgomery and a copy was given to him. Potassium 4.2 random glucose 266 which is improved from last visit at 342. Creatinine 0.8 his LFTs are normal and his testosterone is 2.8 PSA is 0.251. Last visit was 0.452. 2. Abdominal pain/fullness of unknown etiology A. I have requested a CT with and without contrast of the abdomen but Mr. Montgomery wanted to try antacids first. He promises to call early next week if this is not improving and we will proceed with the scanning for evaluation of abdominal fullness/bloating in a patient with metastatic prostate cancer. 3. Follow-up plan: A. We will plan to see him back in 1 month with CBC CMP total testosterone and PSA. He will be due for monthly Xgeva at that time as well. B. Mr. Montgomery has been instructed to contact us in the interim should questions or problems arise. He was again encouraged to call us if he feels his abdominal fullness/bloating is not improving or is even worsening so that we can proceed with scanning as requested above. Signed By: Yann Crooks-, AORANDALL Gómez MD <<Signature on File>>
== END 2020-11-26 23:59 | disposition home or self-care (01) ==
LOC: ONCMED 05:25
PROVIDERS: Internal Medicine Hematology & Oncology; PCP Internal Medicine; Visit Provider Nurse Practitioner
DX: Z51.11 Encounter for antineoplastic chemotherapy (principal); C61 Malignant neoplasm of prostate; C79.51 Secondary malignant neoplasm of bone; I10 Essential (primary) hypertension; M81.0 Age-related osteoporosis without current pathological fracture; E11.42 Type 2 diabetes mellitus with diabetic polyneuropathy; Z86.010 Personal history of colon polyps; Z79.899 Other long term (current) drug therapy
CPT/HCPCS: 80053; 84153; 84403; 96372; 99215; J0897

== ENCOUNTER 2020-12-12 08:46 | Outpatient (CLI) | payer MEDICARE, OTHER, SELFPAY ==
--- NOTE | 2020-12-12 08:58 | CT_ITS ---
WS: [id number] CT scan of the abdomen and pelvis with Oral and with and without IV contrast. Additional two-dimensio nal coronal and sagittal reconstruction was performed. 12/12/2020 Clinical Data: PROSTATE CA ABDOMINAL PAIN-MID, RIGHT, LEFT LOWER QUAD, BLOAT Comparison: CT abdomen and pelvis, 04/12/2020 DLP: 1491.[address] scans at [facility] use at least one of these dose optimization techniques: automat ed exposure control; mA and/or kV adjustment per patient size (includes targeted exams where dose is matched to clinical indication); or iterative reconstruction. Findings: The lower lungs show no nodules, masses or effusions. The heart is enlarged. The liver, gallbladder, spleen, adrenal glands and pancreas are normal with incidental small cysts in the liver. The kidneys show equal bilateral contrast excretion with bilateral cysts unchanged. No hydronephrosis , masses or renal calculi are seen.. The abdominal aorta is normal in size. No appendicitis or diverticulitis is seen. Oral contrast is in the stomach and small bowel and there is no bowel dilatation. No abscess, adenopathy, ascites, mass, obstruction or free air is seen. The bladder shows a small right lateral diverticulum. The prostate is absent with clips in the prosta te bed. No inguinal hernia is seen but there is bilateral fat in the inguinal canals.. The bones of the lower thorax, lumbar spine, pelvis, and hips demonstrate osteoarthritis of the lower thoracic and lumbar vertebral bodies with an old compression fracture of L5. CT/CT abdomen pelvis wo/w [id number] Impression: Negative for acute intra-abdominal or pelvic abnormalities. Cardiomegaly, incidental liver and renal cysts and status post prostatectomy.
[2020-12-12] MEDS: iohexol 300 mg/mL 50 mL Btl PO (09:24)
[2020-12-12] MEDS: iohexol 300 mg/mL 100 mL Btl IV (10:30)
== END 2020-12-12 08:47 | disposition home or self-care (01) ==
LOC: RADWPI 08:47
PROVIDERS: PCP Internal Medicine; Visit Provider Nurse Practitioner
DX: C61 Malignant neoplasm of prostate (principal); R14.0 Abdominal distension (gaseous); R10.32 Left lower quadrant pain; I51.7 Cardiomegaly; K76.89 Other specified diseases of liver; N28.1 Cyst of kidney, acquired; Z90.79 Acquired absence of other genital organ(s)
CPT/HCPCS: 74178; Q9967

== ENCOUNTER 2020-12-20 05:30 | Outpatient (RCR) | payer MEDICARE, OTHER, SELFPAY ==
[2020-12-19 14:17] LABS: Basophils # 0.1 10^3/uL (0.0-0.1); Basophils % 0.5 %; Eosinophils # 0.2 10^3/uL (0.0-0.8); Eosinophils % 1.8 %; Hematocrit 46.3 % (42.0-52.0); Hemoglobin 15.7 g/dL (11.7-16.6); Lymphocytes # 2.3 10^3/uL (0.8-4.8); Lymphocytes % 21.4 %; Mean Corpuscular HGB Conc 33.9 g/dL (30.0-36.0); Mean Corpuscular Hemoglobin 30.7 pg (28.0-34.0); Mean Corpuscular Volume 90.6 fL (80-94); Mean Platelet Volume 11.2 fL (7.4-10.4); Monocytes # 0.6 10^3/uL (0.2-0.9); Monocytes % 5.9 %; Neutrophils # 7.61 10^3/uL (1.8-7.7); Nucleated Red Blood Cells % 0 %; Platelet Count 231 10^3/cmm (130-400); Red Blood Count 5.11 10^6/uL (4.1-5.3); Red Cell Distribution Width 12.9 % (12.1-15.1); White Blood Count 10.9 10^3/uL (4.0-10.0)
[2020-12-19 14:38] LABS: Prostate Specific Antigen 0.187 ng/mL (0-4); Testosterone Total 5.5 ng/dL (193-740)
[2020-12-19 14:49] LABS: Alanine Aminotransferase 15 U/L (0-41); Albumin Level 3.9 g/dL (3.5-5.2); Alkaline Phosphatase 88 IU/L (40-130); Aspartate Amino Transferase 14 U/L (0-40); Blood Urea Nitrogen 23 mg/dL (8-23); Calcium 9.1 mg/dL (8.5-10.5); Carbon Dioxide 22 mmol/L (22-29); Chloride 99 mmol/L (98-107); Glucose 355 mg/dL (65-115); Osmolality Calculated 294 mOsm/kg (285-295); Sodium 133 mmol/L (136-145); Total Bilirubin 0.5 mg/dL (0.15-1.2); Total Protein 6.9 g/dL (6.6-8.7)
[2020-12-20] MEDS: denosumab 120 mg SDV SUBCUT (16:15)
--- NOTE | 2020-12-31 23:29 | ONC FU_ITS ---
[facility] Patient Note Patient: Annika Montgomery Unit #: [id number]: 1935 Dictated By: Yann CrooksDate of Visit: Dec 20, 2020 Onc MED Follow-Up/Prog Note Chief Complaint: Prostate cancer with bone metastases History of Present Illness: Mr Montgomery is an 85-year-old gentleman with long-standing history of prostate cancer. He was initially diagnosed with prostate cancer in November 2001 with PSA 6.3 and abnormal TAMY. He underwent radical retropubic prostatectomy with demonstration of right seminal vesicle involvement subsequently underwent adjuvant XBRT. During follow-up, late rising of PSA was noted and PSA continued to go up slowly. Per urology note, the PSA doubling time was more than one year. Mr Montgomery was offered adjuvant hormonal therapy but patient declined. In March 2018, his PSA was 23.3 and there was a distinct right sided induration on TAMY. Because of left knee pain he underwent MRI scan of lumbar spine on 08/05/2018 which shows T11, L4, L5 vertebral body abnormality. He subsequently underwent bone scan on 09/03/2018 which revealed metastatic disease involving left L4 superior articular facet, metastatic disease involving the left fifth, left ninth and right 11th rib and possibly right 6 and seventh ribs, subacute T12 compression fracture. On 09/14/2018 he was started on bicalutamide and referred to oncology clinic for ADT (as patient declined castration) and for biphosphonate for bone metastases. Zoladex and monthly Xgeva were added on 10/13/2018. The Zoladex was discontinued on April 22, 2019 at patient's request because of related side effects like hot flashes, generalized body weakness and fatigue. The Xgeva was changed to every 6 months and he was followed with a PSA and physical exam. 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 Chronic left knee pain-in the past knee replacement was suggested but patient has used alternative therapy for many years with some success. He was evaluated by and CT scan of thoracic spine was done on 12/15/2018 which showed nonacute appearing T12 approximately 20% height loss anteriorly wedge compression fracture with minimal retropulsion. 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 Mr Montgomery went to see his primary care physician with the urinary signs symptoms. A urinalysis done on March 17, 2020 showed no sign of urine tract infection but he was treated with Macrobid, as patient had foul-smelling urine. And because of his lower back pain he had lumbar spine x-ray done on March 20, 2020 which showed mild lumbar curve convex left, grade 1 anterolisthesis L4 and L5 measuring 2.6 mm. No significant instability. Trace retrolisthesis L2 and L3 with mild disc space narrowing. Chronic anterior wedging at T12. Follow-up Axumin CT PET scan done on May 15, 2020 showed postsurgical changes from prior prostatectomy. Nonspecific, increased radiotracer uptake along the posterior aspect of the bladder but more inferiorly along the anterior inferior prostatectomy bed. Local regional recurrence is not excluded. Intense radiotracer uptake throughout the spine, sacrum and pelvis with more focal, intense area of uptake along the posterior left ninth rib and proximal right clavicle. Nonspecific intense focal radiotracer uptake along the left anterior frontal region, as per patient, he has small tumor in his left forehead for more than 10 years, Dr. Flynn in [place] was following. Started on bicalutamide 50 mg p.o. daily on May 23, 2020 as patient refused Zoladex. MRI scan of the pelvis done on July 10, 2020 showed prior prostatectomy with circumferential thickening and soft tissue enhancement about the prostatic urethra eccentric to the right appears stable since 2011. New suspicious small lesions involving the right sacrum and right ilium adjacent to sacroiliac joint. Additional smaller lesions involving the superior pubic rami, left inferior pubic rami, and left acetabulum. An additional small lesion L5 vertebral body. Findings suspicious for metastatic disease. Diffuse heterogeneous signal abnormality in the proximal femurs was present previously but has progressed. No perirectal or pelvic lymphadenopathy. Bladder diverticuli larger on the right measuring 2.3 x 2.5 cm progressed from previous. Patient refused lumbar sacral MRI scan because of inability to lay in the machine for prolonged. Bone scan was done on August 15, 2020 showed mild progression of metastatic disease in the skeleton since May 2019. There were more concerning lesions within the left humerus and right hip and new right iliac lesion. Numerous lesions within ribs and spine appears to be stable and indeterminate for new lesions at right sternoclavicular joint versus increasing arthritis. Plain x-ray of right hip done on August 15, 2020 showed no pathological hip fracture no destruction of bony cortex. Plain x-ray of left humerus done on August 15, 2020 showed minimal marrow changes in the proximal humerus and the site of metastatic lesion no impending fracture. Mr. Montgomery had follow-up with Dr. Gómez on October 17, 2020. At that time he had developed some worsening pain in the left hip/lower back and the left arm. He was requiring more pain medication to control the pain. He was referred to Dr. Chacon in radiation oncology and it was elected to hold any radiation as the patient was not complaining of much pain at that visit. Dr. Gómez also recommended that he resume Zoladex as the Casodex alone did not seem to be controlling his disease. His Xgeva was resumed at monthly dosing on September 14, 2020. Mr. Montgomery is here today for follow-up. He is due for monthly Zometa. He states his arm pain is much better. He has no concerns with that today. He states he still has chronic back pain but does not think it is really much worse than what it has been. He denies any fever or chills. He states his appetite is down but he still having abdominal fullness and pain in the mid to right and left lower quad. He did have CT scanning of the abdomen pelvis with contrast on December 12, 2020. There was no acute intra-abdominal or pelvic abnormalities. There was cardiomegaly, incidental liver and renal cyst and noted to be status post prostatectomy. There was no abscess, adenopathy, ascites or masses in the abdomen. It was noted that there were small osteoblastic lesions in the posterior aspect of L4 and superior aspect of L5 vertebral bodies. He has been treated with bicalutamide 50 mg daily. He states he is still taking it. His last Zoladex was on October 17, 2020. He has been receiving the Xgeva monthly since September 14, 2020. He states other than the abdominal bloating he states he feels good. His energy has been good overall but states he starting to slow down a little bit mostly because he wants to. He denies any lower extremity edema. He denies any constipation. He denies any urinary frequency or hesitancy. He states his urine seems to be better overall than it has been in quite some time even at night. He states the abdominal fullness is worse when he bends over. He denies any nausea or vomiting. His abdominal girth is measured at 48 inches today. His ECOG is 1. He denies any bone pain worsening with the Xgeva. Past Medical History: Colon polyps Hypertension Osteoarthritis Peripheral neuropathy Type II diabetes Past Surgical History: Colon resection Excision of plantars wart from left foot Hernia repair Left arthroscopic knee Radical prostatectomy Allergies: Actos, Januvia, Penicillins, and Sulfa Antibiotics. Medications: AmLODIPine Besylate 1 Tablet (of 10 mg) Oral daily Bicalutamide 1 Tablet (of 50 mg) Oral daily CeleXA 0.5 Tablet (of 10 mg) Oral daily Clorazepate Dipotassium 1 Tablet (of 7.5 mg) Oral daily HYDROcodone-Acetaminophen 1 Tablet (of 5-325 mg) Oral b.i.d. Lantus 50 (100 Units/mL) Subcutaneous at bedtime MetFORMIN HCl 1 Tablet (of 500 mg) Oral daily Family History: Mr. Montgomery's mother at age 90. Mr. Montgomery's father at age 82: stroke. Mr. Montgomery has 1 sister who is : brain cancer. 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 Mr. Montgomery has never smoked. He has no history of drinking. Review Of Symptoms: Constitutional Denies fevers, chills, night sweats, excessive fatigue or weight loss. Decreased appetite. Allergic/Immunologic No reactions. Eyes Denies significant visual changes. No diplopia. No amaurosis. ENMT Denies changes in hearing, sore throat, mouth sores, difficulty or changes in swallowing ability, and/or sinus drainage. Hematologic/Lymphatic Denies easy bruising or bleeding. The patient denies any tender or palpable lymph nodes. Respiratory Denies dyspnea on exertion, chest pain, cough or hemoptysis. Denies orthopnea. Cardiovascular Denies anginal chest pain, palpitations or orthopnea. Gastrointestinal Denies nausea, vomiting, diarrhea, GI bleeding, or constipation. Denies change in bowel habits and/or stool color, no heartburn or early satiety. Abdominal fullness and bloating-see above. Genitourinary (M) Denies hematuria, dysuria, increased frequency, urgency, hesitancy or incontinence. Musculoskeletal Denies joint pain, swelling or redness. No decreased range of motion. Integumentary Denies chronic rashes, inflammation, ulcerations or skin changes. Neurologic Denies headache, blurred vision, and no areas of focal weakness or numbness. Normal gait. No sensory problems. Psychiatric Denies insomnia, depression, jean-claude or mood swings. Vital Signs: Performed on Dec 20, 2020 15:32 Height - 69.00 in Weight - 209.6 lbs (LOW) BSA - 2.11 sq.m BMI - 30.95 (HIGH) Temperature - 98.1 F (LOW) Pulse - 87 /min Respiration - 16 /min BP - 168/80 mm(hg) (HIGH) O2 Sat - 95 % (LOW) Pain - 0,2 - Ambulatory/capable of all self-care, unable to perform any work activities. Up and about more than 50% of waking hours. (ECOG) Physical Examination: Constitutional Alert, oriented, no acute distress. Skin pink, warm and dry. Head Normocephalic; atraumatic. Eyes Conjunctivae and sclerae are clear and without icterus. Pupils are reactive and equal. Hematologic/Lymphatic No petechiae or purpura. No tender or palpable lymph nodes in the cervical or supraclavicular areas. Respiratory Lungs are clear to auscultation without rhonchi or wheezing. Cardiovascular Regular rate and rhythm of heart without murmurs,clicks, gallops or rubs. Abdomen Non-tender, non-distended, no masses or ascites. Good bowel sounds noted in all quads. No guarding or rebound tenderness. No pulsatile masses. He states he is continues to have bloating and fullness but is eating less. Back/Spine Non-tender to palpation. Extremities No visible deformities, no cyanosis, clubbing or edema. Musculoskeletal No tenderness or swelling, normal range of motion without obvious weakness. Integumentary No rashes or lesions. Neurologic No sensory or motor deficits, normal cerebellar function, normal gait. Psychiatric Alert and oriented times three. Coherent speech. Verbalizes understanding of our discussions today. Laboratory:Test performed on Oct 16, 2020 08:35 Sodium 135 mmol/L Potassium 4.3 mmol/L Chloride 100 mmol/L CO2 26 mmol/L Anion Gap 13.3 BUN 18 mg/dL Creatinine 0.9 mg/dL Cr Clearance (Est) 82.1900 mL/min Glucose 342 mg/dL Osmolality - Calculated 295 mOsm/kg Calcium 9.4 mg/dL Protein, Total 7.4 g/dL Albumin 4.1 g/dL Globulin 3.3 g/dL Bilirubin, Total 0.6 mg/dL ALT (SGPT) 14 U/L AST (SGOT) 12 U/L Alkaline Phosphatase 104 IU/L WBC 8.8 10 3/uL RBC 5.49 10 6/uL HGB 16.5 g/dL HCT 50.4 % MCV 91.8 fL MCH 30.1 pg MCHC 32.7 g/dL RDW 12.7 % Platelet Count 238 10 3/cmm MPV 11.1 fL Neutrophils 5.89 10 3/uL Lymphocytes 2.2 10 3/uL Monocytes 0.5 10 3/uL Eosinophils 0.2 10 3/uL Basophils 0.0 10 3/uL Neutrophil % 66.7 % Lymphocyte % 24.5 % Monocyte % 5.2 % Eosinophil % 2.5 % Basophils % 0.5 % NRBC % 0 % PSA 0.452 ng/mL Test performed on Jul 31, 2020 08:36 Testosterone, Total 259.3 ng/dL Impression: 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 Patient was offered adjuvant hormonal therapy but patient declined. MRI scan lumbosacral done on 08/05/2018 showed T11, L4, L5 vertebral body abnormality Bone scan done on 09/03/2018 which showed metastatic disease involving L4. Articular facet, metastatic disease involving left fifth, left ninth and right 11 rib possibly right sixth and seventh ribs, subcutaneous T12 compression fracture. Started on bicalutamide on 09/14/2018 And Zoladex on 10/13/2018 Zoladex discontinued on 04/22/2019 at patient request because of related side effects like hot flashes and generalized body weakness and fatigue And Xgeva was changed to every 6 months Chronic left knee pain, in the past, knee replacement was suggested, patient opted for alternative treatment with some success. 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 Plan: PROBLEMS ADDRESSED TODAY 1. Metastatic prostate cancer with extensive bone metastasis A. Continue with Zoladex 10.8 mg every 3 months last given on October 17, 2020-due January 15, 2021. B. Continue with Xgeva 120 mg monthly last dose given on November 21, 2020. C. He states he is still taking bicalutamide 50 mg daily. D. His chemistry and PSA from today were reviewed in detail and discussed with and Mrs. Montgomery and a copy was given to him. WBC 10.9, hemoglobin 15.7, platelets 1 31,000 ANC is 7610. Sodium 133 potassium 4.0 random glucose 355. Creatinine 0.9 calcium 9.1 LFTs are normal. His testosterone is 5.5 and his PSA is 0.187. It was 0.251 on November 20, 2020. His weight is stable. It is down 4/10 by his weight documented on November 21, 2020. His diastolic blood pressure is running normal systolic runs between 137 and 168 on her flowsheet as of August 03, 2020 through today. E. He states he has sliding scale insulin at home but his blood sugars never run this high at home. F. I have requested a hemoglobin A1c be added to blood in lab if possible. Diagnosis is hyperglycemia. 2. Abdominal pain/fullness of unknown etiology A. He did have CT scanning of the abdomen pelvis with contrast on December 12, 2020. There was no acute intra-abdominal or pelvic abnormalities. There was cardiomegaly, incidental liver and renal cyst and noted to be status post prostatectomy. There was no abscess, adenopathy, ascites or masses in the abdomen. It was noted that there were small osteoblastic lesions in the posterior aspect of L4 and superior aspect of L5 vertebral bodies. B. His abdominal girth today is 48 inches. 3. Follow-up plan: A. We will plan to see him back in 1 month with CBC CMP total testosterone and PSA. He will be due for monthly Xgeva and Zoladex at that time as well. B. Mr. Montgomery has been instructed to contact us in the interim should questions or problems arise. C. He was again encouraged to call us if he feels his abdominal fullness/bloating is worsening as we may need to have him see a GI specialist for further work up. Signed By: Yann Crooks-, AOCNP Michael Gómez MD <<Signature on File>>
== END 2020-12-27 23:59 | disposition home or self-care (01) ==
LOC: ONCMED 05:30
PROVIDERS: PCP Internal Medicine; Visit Provider Nurse Practitioner
DX: Z51.11 Encounter for antineoplastic chemotherapy (principal); C61 Malignant neoplasm of prostate; C79.51 Secondary malignant neoplasm of bone; I10 Essential (primary) hypertension; E11.42 Type 2 diabetes mellitus with diabetic polyneuropathy; M17.12 Unilateral primary osteoarthritis, left knee; Z79.899 Other long term (current) drug therapy
CPT/HCPCS: 36415; 80053; 84153; 84403; 85025; 96372; 99214; J0897

== ENCOUNTER 2021-01-19 05:46 | Outpatient (RCR) | payer MEDICARE, OTHER, SELFPAY ==
[2021-01-18 09:11] LABS: Basophils % 0.5 %; Eosinophils # 0.3 10^3/uL (0.0-0.8); Eosinophils % 3.2 %; Hematocrit 48.4 % (42.0-52.0); Hemoglobin 16.1 g/dL (11.7-16.6); Lymphocytes # 2.9 10^3/uL (0.8-4.8); Lymphocytes % 32.2 %; Mean Corpuscular HGB Conc 33.3 g/dL (30.0-36.0); Mean Corpuscular Hemoglobin 30.4 pg (28.0-34.0); Mean Corpuscular Volume 91.5 fL (80-94); Mean Platelet Volume 11.4 fL (7.4-10.4); Monocytes # 0.6 10^3/uL (0.2-0.9); Monocytes % 6.6 %; Neutrophils # 5.07 10^3/uL (1.8-7.7); Neutrophils % 57.3 %; Nucleated Red Blood Cells % 0 %; Platelet Count 231 10^3/cmm (130-400); Red Blood Count 5.29 10^6/uL (4.1-5.3); White Blood Count 8.8 10^3/uL (4.0-10.0)
[2021-01-18 09:50] LABS: Prostate Specific Antigen 0.437 ng/mL (0-4)
[2021-01-18 10:01] LABS: Alanine Aminotransferase 15 U/L (0-41); Albumin Level 4.1 g/dL (3.5-5.2); Alkaline Phosphatase 72 IU/L (40-130); Anion Gap 14.7 (5-19); Aspartate Amino Transferase 12 U/L (0-40); Blood Urea Nitrogen 20 mg/dL (8-23); Carbon Dioxide 27 mmol/L (22-29); Chloride 100 mmol/L (98-107); Globulin 2.6 g/dL (1.3-4.6); Glucose 276 mg/dL (65-115); Osmolality Calculated 298 mOsm/kg (285-295); Potassium 3.7 mmol/L (3.5-5.1); Sodium 138 mmol/L (136-145); Total Bilirubin 0.6 mg/dL (0.15-1.2); Total Protein 6.7 g/dL (6.6-8.7)
--- NOTE | 2021-01-21 19:33 | ONC FU_ITS ---
Dr. Gómez follow up note Patient: Annika Montgomery Unit #: [id number]: [id number] Dicatated By: Michael Gómez M.D.Date of Visit:Jan 19, 2021 Onc Med Follow-up/Prog Note History of Present Illness: Mr Montgomery is an 85-year-old gentleman with long-standing history of prostate cancer. He was initially diagnosed with prostate cancer in November 2001 with PSA 6.3 and abnormal TAMY. He underwent radical retropubic prostatectomy with demonstration of right seminal vesicle involvement subsequently underwent adjuvant XBRT. During follow-up, late rising of PSA was noted and PSA continued to go up slowly. Per urology note, the PSA doubling time was more than one year. Mr Montgomery was offered adjuvant hormonal therapy but patient declined. In March 2018, his PSA was 23.3 and there was a distinct right sided induration on TAMY. Because of left knee pain he underwent MRI scan of lumbar spine on 08/05/2018 which shows T11, L4, L5 vertebral body abnormality. He subsequently underwent bone scan on 09/03/2018 which revealed metastatic disease involving left L4 superior articular facet, metastatic disease involving the left fifth, left ninth and right 11th rib and possibly right 6 and seventh ribs, subacute T12 compression fracture. On 09/14/2018 he was started on bicalutamide and referred to oncology clinic for ADT (as patient declined castration) and for biphosphonate for bone metastases. Zoladex and monthly Xgeva were added on 10/13/2018. The Zoladex was discontinued on April 22, 2019 at patient's request because of related side effects like hot flashes, generalized body weakness and fatigue. The Xgeva was changed to every 6 months and he was followed with a PSA and physical exam. 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 Chronic left knee pain-in the past knee replacement was suggested but patient has used alternative therapy for many years with some success. He was evaluated by and CT scan of thoracic spine was done on 12/15/2018 which showed nonacute appearing T12 approximately 20% height loss anteriorly wedge compression fracture with minimal retropulsion. 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 Mr Montgomery went to see his primary care physician with the urinary signs symptoms. A urinalysis done on March 17, 2020 showed no sign of urine tract infection but he was treated with Macrobid, as patient had foul-smelling urine. And because of his lower back pain he had lumbar spine x-ray done on March 20, 2020 which showed mild lumbar curve convex left, grade 1 anterolisthesis L4 and L5 measuring 2.6 mm. No significant instability. Trace retrolisthesis L2 and L3 with mild disc space narrowing. Chronic anterior wedging at T12. Follow-up Axumin CT PET scan done on May 15, 2020 showed postsurgical changes from prior prostatectomy. Nonspecific, increased radiotracer uptake along the posterior aspect of the bladder but more inferiorly along the anterior inferior prostatectomy bed. Local regional recurrence is not excluded. Intense radiotracer uptake throughout the spine, sacrum and pelvis with more focal, intense area of uptake along the posterior left ninth rib and proximal right clavicle. Nonspecific intense focal radiotracer uptake along the left anterior frontal region, as per patient, he has small tumor in his left forehead for more than 10 years, Dr. Flynn in [place] was following. Started on bicalutamide 50 mg p.o. daily on May 23, 2020 as patient refused Zoladex. MRI scan of the pelvis done on July 10, 2020 showed prior prostatectomy with circumferential thickening and soft tissue enhancement about the prostatic urethra eccentric to the right appears stable since 2011. New suspicious small lesions involving the right sacrum and right ilium adjacent to sacroiliac joint. Additional smaller lesions involving the superior pubic rami, left inferior pubic rami, and left acetabulum. An additional small lesion L5 vertebral body. Findings suspicious for metastatic disease. Diffuse heterogeneous signal abnormality in the proximal femurs was present previously but has progressed. No perirectal or pelvic lymphadenopathy. Bladder diverticuli larger on the right measuring 2.3 x 2.5 cm progressed from previous. Patient refused lumbar sacral MRI scan because of inability to lay in the machine for prolonged. Bone scan was done on August 15, 2020 showed mild progression of metastatic disease in the skeleton since May 2019. There were more concerning lesions within the left humerus and right hip and new right iliac lesion. Numerous lesions within ribs and spine appears to be stable and indeterminate for new lesions at right sternoclavicular joint versus increasing arthritis. Plain x-ray of right hip done on August 15, 2020 showed no pathological hip fracture no destruction of bony cortex. Plain x-ray of left humerus done on August 15, 2020 showed minimal marrow changes in the proximal humerus and the site of metastatic lesion no impending fracture. Mr. Montgomery had follow-up visit on October 17, 2020. At that time he had developed some worsening pain in the left hip/lower back and the left arm. He was requiring more pain medication to control the pain. He was referred to Dr. Chacon in radiation oncology and it was elected to hold any radiation as the patient was not complaining of much pain at that visit. patient was also recommended to resume Zoladex as the Casodex alone did not seem to be controlling his disease. His Xgeva was resumed at monthly dosing on September 14, 2020.So patient received his 3 monthly dose of Zoladex on October 17, 2020 and then continue with monthly Xgeva and daily Casodex Came for follow-up, denies any specific complaints left hip/lower back pain is under control with current pain medication, denies any left arm pain denies any fever chills, as per patient, month ago he developed abdominal fullness for which he underwent CT scan of abdomen which showed no significant abnormality patient said he took ciprofloxacin with that his abdominal fullness resolved, as well as urine incontinence improved in fact resolved completely. Overall patient is feeling very well and in fact today he wants to stop his Zoladex/Xgeva/Casodex because of related side effect and hot flashes, patient was advised to stop Casodex and at least continue Zoladex every 3 months along with Xgeva with patient is refusing any treatment for metastatic prostate cancer. . Medications: AmLODIPine Besylate 1 Tablet (of 10 mg) Oral daily, Bicalutamide 1 Tablet (of 50 mg) Oral daily, CeleXA 0.5 Tablet (of 10 mg) Oral daily, Clorazepate Dipotassium 1 Tablet (of 7.5 mg) Oral daily, HYDROcodone-Acetaminophen 1 Tablet (of 5-325 mg) Oral b.i.d., Lantus 50 (100 Units/mL) Subcutaneous at bedtime, MetFORMIN HCl 1 Tablet (of 500 mg) Oral daily Allergies: Actos, Januvia, Penicillins, and Sulfa Antibiotics. Review of Systems: Review of Systems is not available for this patient. Vital Signs: Performed on Jan 19, 2021 10:03 Height - 69.00 in Weight - 206.6 lbs (LOW) BSA - 2.09 sq.m BMI - 30.51 (HIGH) Temperature - 97.3 F (LOW) Pulse - 94 /min Respiration - 18 /min BP - 125/77 mm(hg) O2 Sat - 97 % Pain - 0 Performance Status: 1 - No physically strenuous activity, but ambulatory and able to carry out light or sedentary work (e.g. office work, light house work). (ECOG) Physical Examination: ENMT - , No thrush, no jaundice, no mouth sores, Respiratory - Lungs are clear to auscultation, Cardiovascular - Regular rate and rhythm of heart, Abdomen - Soft, bowel sounds present, Extremities - No visible edema. Lab/Imaging: Test performed on Oct 16, 2020 08:35 Sodium 135 mmol/L Potassium 4.3 mmol/L Chloride 100 mmol/L CO2 26 mmol/L Anion Gap 13.3 BUN 18 mg/dL Creatinine 0.9 mg/dL Cr Clearance (Est) 82.1900 mL/min Glucose 342 mg/dL Osmolality - Calculated 295 mOsm/kg Calcium 9.4 mg/dL Protein, Total 7.4 g/dL Albumin 4.1 g/dL Globulin 3.3 g/dL Bilirubin, Total 0.6 mg/dL ALT (SGPT) 14 U/L AST (SGOT) 12 U/L Alkaline Phosphatase 104 IU/L WBC 8.8 10 3/uL RBC 5.49 10 6/uL HGB 16.5 g/dL HCT 50.4 % MCV 91.8 fL MCH 30.1 pg MCHC 32.7 g/dL RDW 12.7 % Platelet Count 238 10 3/cmm MPV 11.1 fL Neutrophils 5.89 10 3/uL Lymphocytes 2.2 10 3/uL Monocytes 0.5 10 3/uL Eosinophils 0.2 10 3/uL Basophils 0.0 10 3/uL Neutrophil % 66.7 % Lymphocyte % 24.5 % Monocyte % 5.2 % Eosinophil % 2.5 % Basophils % 0.5 % NRBC % 0 % PSA 0.452 ng/mL Test performed on Jul 31, 2020 08:36 Testosterone, Total 259.3 ng/dL Impression: 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 Patient was offered adjuvant hormonal therapy but patient declined. MRI scan lumbosacral done on 08/05/2018 showed T11, L4, L5 vertebral body abnormality Bone scan done on 09/03/2018 which showed metastatic disease involving L4. Articular facet, metastatic disease involving left fifth, left ninth and right 11 rib possibly right sixth and seventh ribs, subcutaneous T12 compression fracture. Started on bicalutamide on 09/14/2018 And Zoladex on 10/13/2018 Zoladex discontinued on 04/22/2019 at patient request because of related side effects like hot flashes and generalized body weakness and fatigue And Xgeva was changed to every 6 months Because of progressive disease, Zoladex was again added on October 17, 2020, after single dose patient refused further treatment because of related side effect and his own belief system. Chronic left knee pain, in the past, knee replacement was suggested, patient opted for alternative treatment with some success. 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 Plan: Discussed with patient regarding his labs white blood count 8.8 hemoglobin 16.1 hematocrit 48.4 platelets 231,000 CMP within normal limits except glucose 276 this is 0.437 compared to 0.187 previously Clinically, patient doing well with no new signs symptom suggestive of disease progression, and is tolerating ADT with Zoladex/Casodex well along with monthly Xgeva for metastatic prostate cancer, patient was advised to discontinue Casodex earlier but patient prefer Casodex and now after taking 1 dose of Zoladex in September 2020, patient is refusing ADT along with Xgeva, knowing the risks involved, patient was advised to stop taking Casodex but continue 3 monthly Zoladex along with monthly Xgeva but patient and his 's presence categorically refused to continue any form of treatment for his metastatic prostate cancer knowing his follow-up PSA shows mild upswing. At this point patient and his would prefer follow-up unless there is a worsening of symptom or disease progression based on follow-up scans., Patient was advised to think again, patient was advised to take second opinion patient was advised to discuss with PMD or Dr. Ty but patient said he understand and wants to stop treatment and rather prefer observation. So at patient's request, will discontinue Zoladex/Casodex/Xgeva and he will return to clinic in 3 months with CBC CMP PSA, testosterone and bone scan. Patient was advised in case there is a worsening of symptoms, he need to call office, Signed By: Michael Gómez M.D. <<Signature on File>>
== END 2021-01-26 23:59 | disposition home or self-care (01) ==
LOC: ONCMED 05:46
PROVIDERS: Nurse Practitioner; PCP Internal Medicine; Visit Provider Internal Medicine Hematology & Oncology
DX: C61 Malignant neoplasm of prostate (principal); C79.51 Secondary malignant neoplasm of bone; G89.29 Other chronic pain; M25.562 Pain in left knee; Z79.818 Long term (current) use of other agents affecting estrogen receptors and estrogen levels
CPT/HCPCS: 36415; 80053; 84153; 85025; 99215

== ENCOUNTER → 2021-06-07 10:49 | Outpatient (BNVA) | payer MEDICARE, OTHER, SELFPAY | PROVIDERS: PCP Internal Medicine; Visit Provider Urology | DX: C61 Malignant neoplasm of prostate (principal) | CPT/HCPCS: 81003 ==

== ENCOUNTER → 2021-07-10 08:32 | Outpatient (BNVA) | payer MEDICARE, OTHER, SELFPAY | PROVIDERS: PCP Family Medicine Adult Medicine; Visit Provider Family Medicine Adult Medicine | DX: I10 Essential (primary) hypertension (principal); M19.90 Unspecified osteoarthritis, unspecified site; E11.9 Type 2 diabetes mellitus without complications; C61 Malignant neoplasm of prostate; C79.51 Secondary malignant neoplasm of bone; Z13.6 Encounter for screening for cardiovascular disorders | CPT/HCPCS: 80053; 83036; 84153; 85025; 85651 ==

== ENCOUNTER → 2021-08-14 07:54 | Outpatient (BNVA) | payer MEDICARE, OTHER, SELFPAY | PROVIDERS: PCP Family Medicine Adult Medicine; Visit Provider Family Medicine Adult Medicine | DX: N39.0 Urinary tract infection, site not specified (principal); N32.0 Bladder-neck obstruction | CPT/HCPCS: 81000 ==

== ENCOUNTER → 2021-11-14 08:52 | Outpatient (BNVA) | payer MEDICARE, OTHER, SELFPAY | PROVIDERS: PCP Family Medicine Adult Medicine; Visit Provider Family Medicine Adult Medicine | DX: C61 Malignant neoplasm of prostate (principal); C79.51 Secondary malignant neoplasm of bone; I10 Essential (primary) hypertension; E11.9 Type 2 diabetes mellitus without complications; M19.90 Unspecified osteoarthritis, unspecified site; S22.080A Wedge compression fracture of T11-T12 vertebra, initial encounter for closed fracture; K21.9 Gastro-esophageal reflux disease without esophagitis | CPT/HCPCS: 80053; 83036; 85025 ==

== ENCOUNTER → 2022-02-13 08:56 | Outpatient (BNVA) | payer MEDICARE, OTHER, SELFPAY | PROVIDERS: PCP Family Medicine Adult Medicine; Visit Provider Family Medicine Adult Medicine | DX: E11.9 Type 2 diabetes mellitus without complications (principal); C61 Malignant neoplasm of prostate; C79.51 Secondary malignant neoplasm of bone; I10 Essential (primary) hypertension | CPT/HCPCS: 80053; 83036; 84153 ==

== ENCOUNTER 2022-06-06 08:08 | Outpatient (CLI) | payer MEDICARE, OTHER, SELFPAY | END 2022-06-06 08:09 | disposition home or self-care (01) | LOC: LAB 08:18 | PROVIDERS: PCP Family Medicine Adult Medicine; Visit Provider Urology | DX: C61 Malignant neoplasm of prostate (principal); C79.51 Secondary malignant neoplasm of bone | CPT/HCPCS: 84153 ==

== ENCOUNTER → 2022-06-11 09:16 | Outpatient (BNVA) | payer MEDICARE, OTHER, SELFPAY | PROVIDERS: PCP Family Medicine Adult Medicine; Visit Provider Urology | DX: N32.0 Bladder-neck obstruction (principal); C61 Malignant neoplasm of prostate; C79.51 Secondary malignant neoplasm of bone | CPT/HCPCS: 51798; 81003; 99212 ==

== ENCOUNTER → 2023-02-05 09:37 | Outpatient (BNVA) | payer MEDICARE, OTHER, SELFPAY | PROVIDERS: PCP Family Medicine Adult Medicine; Visit Provider Family Medicine Adult Medicine | DX: R97.20 Elevated prostate specific antigen [PSA] (principal); E11.9 Type 2 diabetes mellitus without complications; M19.90 Unspecified osteoarthritis, unspecified site; I10 Essential (primary) hypertension; N40.0 Benign prostatic hyperplasia without lower urinary tract symptoms | CPT/HCPCS: 80053; 83036; 85651; G0103 ==

== ENCOUNTER → 2023-09-02 10:25 | Outpatient (BNVA) | payer MEDICARE, OTHER, SELFPAY | PROVIDERS: PCP Family Medicine Adult Medicine; Visit Provider Family Medicine Adult Medicine | DX: R31.9 Hematuria, unspecified (principal) | CPT/HCPCS: 81003 ==

== ENCOUNTER 2023-12-09 13:05 | Oncology outpatient (recurring) (ONCR) | payer MEDICARE, OTHER, SELFPAY ==
[2023-12-09 14:13] LABS: Basophils % 0.5 %; Eosinophils # 0.3 10^3/uL (0.0-0.8); Eosinophils % 3.3 %; Lymphocytes # 2.1 10^3/uL (0.8-4.8); Lymphocytes % 25.3 %; Mean Corpuscular HGB Conc 32.4 g/dL (30-55); Mean Corpuscular Hemoglobin 27.8 pg (27-33); Mean Corpuscular Volume 85.7 fl (82-101); Monocytes # 0.7 10^3/uL (0.2-0.9); Monocytes % 8.6 %; Neutrophils # 5.21 10^3/uL (1.8-7.7); Neutrophils % 61.8 %; Nucleated Red Blood Cells % 0 %; Platelet Count 291 10^3/cmm (157-399); Red Cell Distribution Width 14.7 % (12.1-15.1); White Blood Count 8.42 10^3/uL (3.29-11.43)
[2023-12-09 14:53] LABS: Alanine Aminotransferase 10 U/L (0-41); Albumin Level 3.7 g/dL (3.5-5.2); Alkaline Phosphatase 94 U/L (40-130); Anion Gap 17.5 (5-19); Aspartate Amino Transferase 14 U/L (0-40); Blood Urea Nitrogen 23 mg/dL (8-23); Carbon Dioxide 23 mmol/L (22-29); Chloride 101 mmol/L (98-107); Creatinine Clr Calc Pharmacy 46.8958; Globulin 3.2 g/dL (1.3-4.6); Glucose 211 mg/dL (65-115); Lactate Dehydrogenase 139 U/L (135-225); Osmolality Calculated 294 mOsm/kg (285-295); Potassium 4.5 mmol/L (3.5-5.1); Sodium 137 mmol/L (136-145); Testosterone Total 299.2 ng/dL (193-740); Total Bilirubin 0.3 mg/dL (0.15-1.2); Total Protein 6.9 g/dL (6.6-8.7)
== END 2023-12-28 23:59 | disposition home or self-care (01) ==
PROVIDERS: PCP Family Medicine Adult Medicine; Visit Provider Internal Medicine
DX: C61 Malignant neoplasm of prostate (principal); C79.51 Secondary malignant neoplasm of bone; Z79.899 Other long term (current) drug therapy
CPT/HCPCS: 36415; 80053; 83615; 84153; 84403; 85025; 99214

== ENCOUNTER → 2024-05-14 08:24 | Outpatient (BNVA) | payer MEDICARE, OTHER, SELFPAY | PROVIDERS: PCP Family Medicine Adult Medicine; Visit Provider Family Medicine Adult Medicine | DX: R97.20 Elevated prostate specific antigen [PSA] (principal) | CPT/HCPCS: 80053; 83036; 84153 ==

== ENCOUNTER 2024-06-11 06:00 | Outpatient (CLI) | payer MEDICARE, OTHER, SELFPAY | END 2024-06-11 06:01 | LOC: RAD 07-05 09:22 | PROVIDERS: PCP Family Medicine Adult Medicine; Visit Provider Student in an Organized Health Care Education/Training Program | DX: M17.11 Unilateral primary osteoarthritis, right knee (principal); M25.561 Pain in right knee; M25.562 Pain in left knee | CPT/HCPCS: 99204 ==

== ENCOUNTER → 2024-06-11 09:45 | Outpatient (BNVA) | payer MEDICARE, OTHER, SELFPAY | PROVIDERS: PCP Family Medicine Adult Medicine; Visit Provider Student in an Organized Health Care Education/Training Program | DX: M17.0 Bilateral primary osteoarthritis of knee (principal); M25.561 Pain in right knee; M25.562 Pain in left knee | CPT/HCPCS: 73560; 73565 ==

== ENCOUNTER 2024-07-29 13:43 | Oncology outpatient (recurring) (ONCR) | payer MEDICARE, OTHER, SELFPAY ==
[2024-07-08 08:37] LABS: Basophils # 0.1 10^3/uL (0.0-0.1); Basophils % 0.6 %; Eosinophils # 0.3 10^3/uL (0.0-0.8); Eosinophils % 2.8 %; Hematocrit 42.9 % (37-53); Lymphocytes # 2.9 10^3/uL (0.8-4.8); Lymphocytes % 27.2 %; Mean Corpuscular HGB Conc 33.1 g/dL (30-55); Mean Corpuscular Hemoglobin 29.3 pg (27-33); Mean Corpuscular Volume 88.6 fl (82-101); Mean Platelet Volume 9.9 fL (7.4-10.4); Monocytes # 0.6 10^3/uL (0.2-0.9); Monocytes % 5.8 %; Neutrophils # 6.67 10^3/uL (1.8-7.7); Neutrophils % 63.2 %; Nucleated Red Blood Cells % 0 %; Platelet Count 297 10^3/cmm (157-399); Red Blood Count 4.84 10^6/uL (3.85-5.65); Red Cell Distribution Width 14.7 % (12.1-15.1); White Blood Count 10.53 10^3/uL (3.29-11.43)
[2024-07-08 09:05] LABS: Alanine Aminotransferase 13 U/L (0-41); Albumin Level 4.1 g/dL (3.5-5.2); Alkaline Phosphatase 131 U/L (40-130); Anion Gap 15.4 (5-19); Aspartate Amino Transferase 16 U/L (0-40); Blood Urea Nitrogen 21 mg/dL (8-23); Calcium 9.2 mg/dL (8.5-10.5); Carbon Dioxide 25 mmol/L (22-29); Chloride 102 mmol/L (98-107); Globulin 3.2 g/dL (1.3-4.6); Glucose 154 mg/dL (65-115); Osmolality Calculated 292 mOsm/kg (285-295); Potassium 4.4 mmol/L (3.5-5.1); Sodium 138 mmol/L (136-145); Testosterone Total 339.9 ng/dL (193-740); Total Bilirubin 0.5 mg/dL (0.15-1.2); Total Protein 7.3 g/dL (6.6-8.7)
[2024-07-08] MEDS: leuprolide 22.5 mg Kit IM (10:32)
--- NOTE | 2024-07-29 13:00 | CT_ITS ---
WS: [id number] CT RIGHT KNEE, NONCONTRAST [facility] TECHNIQUE: Noncontrast CT of the RIGHT knee to include the RIGHT hip and ankle. CLINICAL INFORMATION: M17.11 - Unilateral primary osteoarthritis, right knee COMPARISON: None. DLP: 967.[address] scans at [facility] use at least one of these dose optimization techniques: automated e xposure control; mA and/or kV adjustment per patient size (includes targeted exams where dose is matc hed to clinical indication); or iterative reconstruction. FINDINGS: Osteopenia. Vascular calcification. Surgical clips in the pelvis with prior prostatectomy. Diffuse in duration about the bladder may be due to cystitis or radiation therapy. Recommend correlation for UTI symptoms. RIGHT lateral bladder diverticulum unchanged since thousand 21 Mild degenerative arthritis sacroiliac joints. Moderate degenerative narrowing of both hips. Advanced tricompartmental arthritis RIGHT knee worse at the medial joint compartment with bone-on-bon e articulation. Hypertrophic changes along the joint line. Hypertrophic patella. Small suprapatellar effusion. CT/CT knee RT [place] [id number] IMPRESSION: Prior prostatectomy with diffuse bladder wall thickening and surrounding indura tion. Recommend correlation for UTI and cystitis. This also may be due to radia tion therapy. Recommend correlation with history. Images obtained for preoperative purposes.
[2024-07-29 14:08] LABS: Basophils # 0.1 10^3/uL (0.0-0.1); Basophils % 0.7 %; Eosinophils # 0.5 10^3/uL (0.0-0.8); Hematocrit 43.3 % (37-53); Lymphocytes # 2.2 10^3/uL (0.8-4.8); Lymphocytes % 24.7 %; Mean Corpuscular Hemoglobin 29.2 pg (27-33); Mean Corpuscular Volume 88.5 fl (82-101); Mean Platelet Volume 10.4 fL (7.4-10.4); Monocytes # 0.7 10^3/uL (0.2-0.9); Monocytes % 8.2 %; Neutrophils % 60.1 %; Nucleated Red Blood Cells % 0 %; Platelet Count 304 10^3/cmm (157-399); Red Blood Count 4.89 10^6/uL (3.85-5.65); Red Cell Distribution Width 14.5 % (12.1-15.1); White Blood Count 8.82 10^3/uL (3.29-11.43)
[2024-07-29 14:13] LABS: Bilirubin Urine Negative (Negative); Blood Urine 3+ (Negative); Glucose Urine UA Trace (Normal); Ketones Urine Negative (Negative); Leukocyte Esterase Urine 3+ (Negative); Nitrate Urine Negative (Negative); Protein Urine 3+ (Negative); Specific Gravity, Urine 1.022 (1.005-1.030); Urine Appearance Turbid (CLEAR); pH Urine 5.5 (5-7)
[2024-07-29 14:15] LABS: Add Urine Microscopic? YES; Bacteria Urine 1+ /hpf; Hyaline Casts Urine 1.24 /lpf; RBC Urine >100 /hpf (0-2); WBC Urine >100 /hpf (0-5)
[2024-07-29 14:24] LABS: Urine Color Dark Yellow (Yellow)
[2024-07-29 14:29] LABS: Alanine Aminotransferase 14 U/L (0-41); Albumin Level 4.2 g/dL (3.5-5.2); Alkaline Phosphatase 135 U/L (40-130); Anion Gap 15.1 (5-19); Aspartate Amino Transferase 18 U/L (0-40); Blood Urea Nitrogen 21 mg/dL (8-23); Calcium 9.5 mg/dL (8.5-10.5); Carbon Dioxide 25 mmol/L (22-29); Chloride 101 mmol/L (98-107); Globulin 3.2 g/dL (1.3-4.6); Glucose 141 mg/dL (65-115); Osmolality Calculated 289 mOsm/kg (285-295); Potassium 4.1 mmol/L (3.5-5.1); Sodium 137 mmol/L (136-145); Total Bilirubin 0.4 mg/dL (0.15-1.2); Total Protein 7.4 g/dL (6.6-8.7)
[2024-07-29 15:16] LABS: Estmated Average Glucose 166; Hemoglobin A1C 7.4 % (4.0-6.0)
== END 2024-07-29 23:59 | disposition home or self-care (01) ==
LOC: ONCMED 13:43 → RAD 07-30 00:02
PROVIDERS: Internal Medicine Hematology & Oncology; Student in an Organized Health Care Education/Training Program; PCP Family Medicine Adult Medicine; Visit Provider Internal Medicine
DX: Z53.9 Procedure and treatment not carried out, unspecified reason; M17.11 Unilateral primary osteoarthritis, right knee; M17.0 Bilateral primary osteoarthritis of knee; Z90.79 Acquired absence of other genital organ(s); M85.869 Other specified disorders of bone density and structure, unspecified lower leg; N32.89 Other specified disorders of bladder; N32.3 Diverticulum of bladder; M46.1 Sacroiliitis, not elsewhere classified
CPT/HCPCS: 36415; 73700; 80053; 81001; 83036; 84153; 84403; 85025; 96402; 99214; J9217

== ENCOUNTER 2024-08-09 18:17 | Observation (INO) | payer MEDICARE, OTHER, SELFPAY ==
[2024-08-09] VITALS (15 sets, daily range): BP systolic 122–161; BP diastolic 63–87; PULSE 72–98; RESP 16–20; TEMP 36.3–37; O2SAT 90–94; BMI 26.4
--- NOTE | 2024-08-09 13:11 | P.ANESASSM_ITS ---
Pre-Anesthetic Assessment Height/Weight: Height 5 ft 11 in Preop Diagnosis: Knee arthritis Operation Date: 08/09/24 14:25 Proposed Procedures p Geoffrey Robot Total Knee Arthroplasty(Right) - Jean Carlos Ramsey, Was Beta Belkis taken within 24 hours: N/A Was Clonidine taken within 24 hours: N/A Social No alcohol and No tobacco Exam alert, oriented x 3, clear to auscultation bilaterally and regular rate & rhythm Airway Submandibular: within normal limits Cervical ROM: within normal limits Mallampati: Class III Dentition: false Anesthetic Plan ASA status: 3 Anesthesia: General Other: Patient states that approximately 20 years ago he underwent general anesthesia and got a broken neck from intubation/neck manipulation NPO since yesterday Prior history of malignant neoplasm involving the bladder/prostate cancer Prior difficulty with urination, used to straight cath himself but has not had to do that in the past year. Type 2 diabetes on insulin. Will check blood sugar prior to surgery Patient previously had a dirty UA, placed on antibiotics. Repeat urine performed this a.m. All labs 07/29/2024 reviewed acceptable for procedure Plan for general anesthesia Medications/Allergies Home Medications Medication Instructions Recorded Confirmed Last Taken Type meloxicam 7.5 mg tablet 7.5 mg PO DAILY #90 tabs 02/25/24 08/05/24 07/31/24 Rx amlodipine 10 mg tablet 10 mg PO DAILY blood pressure #30 03/16/24 08/05/24 08/09/24 Rx tabs hydrocodone 7.5 mg-acetaminophen 1 tab PO BID PRN pain 30 days #60 07/01/24 08/05/24 08/05/24 Rx 325 mg tablet tabs amitriptyline 10 mg tablet 10 mg PO .hs chronic pain #30 tabs 07/08/24 08/05/24 08/05/24 Rx ciprofloxacin HCl 750 mg tablet 750 mg PO BID PRN urinary tract 08/03/24 08/05/24 08/08/24 Rx infection symptoms #60 tabs zolpidem 5 mg tablet 5 mg PO .hs PRN insomnia #30 tabs 08/03/24 08/05/24 08/04/24 Rx insulin glargine 100 unit/mL 50 unit SUBCUT BEDTIME Diabetic 08/04/24 08/05/24 08/08/24 History subcutaneous solution (Lantus U-100 Insulin) lorazepam 0.5 mg tablet 0.5 mg PO DAILY anxiety 08/05/24 08/05/24 08/05/24 History Allergies Allergy/AdvReac Type Severity Reaction Status Date / Time celecoxib [From Celebrex] Allergy Mild ALGY-Swell Verified 08/04/24 13:18 Lip/Tongue/Throat pioglitazone [From Actos] Allergy Unknown Unknown Verified 08/04/24 13:18 sitagliptin [From Januvia] Allergy Unknown Unknown Verified 08/04/24 13:18 Penicillins Allergy ALGY-Anaphy Verified 08/05/24 13:16 laxis Sulfa (Sulfonamide Allergy ALGY-Rash Verified 08/05/24 13:16 Antibiotics) [facility] Anesthesia Medical History CKD (chronic kidney disease) stage 3, GFR 30-59 ml/min Cr 1.5 05/14/2024 GFR 44 Increase in serum creatinine from prior measurement Recurrent UTI Gross hematuria 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, bilateral History of worms GERD (gastroesophageal reflux disease) Insomnia Sebaceous cyst 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 T12 compression fracture HTN (hypertension) Diabetes Surgical History History of bilateral cataract extraction History of total knee replacement left knee Hx of arthroscopy of left knee Hx of left inguinal hernia repair History of colon resection Hx of radical prostatectomy Family History Father , AT AGE 81 CVA Stroke Social History Smoking and tobacco/nicotine status: never used tobacco/nicotine Alcohol intake: never Substance/Drug Use: never Adopted: No Caregiver/support person: No Lives independently: No Household members: spouse Marital status: Current occupational status: retired Data Anesthesia 08/09/24 14:27 08/09/24 14:27 Cardiac Studies: 2 No Data to Display
[2024-08-09 13:24] LABS: Bilirubin Urine Negative (Negative); Blood Urine 3+ (Negative); Glucose Urine UA Trace (Normal); Ketones Urine Negative (Negative); Leukocyte Esterase Urine 3+ (Negative); Nitrate Urine Negative (Negative); Protein Urine 3+ (Negative); Urine Appearance Turbid (CLEAR)
[2024-08-09 13:29] LABS: Add Urine Microscopic? YES; Bacteria Urine Trace /hpf; Hyaline Casts Urine 4.87 /lpf; RBC Urine >100 /hpf (0-2); WBC Urine >100 /hpf (0-5)
--- NOTE | 2024-08-09 13:30 | SUR.PREOP ---
Dr Ramsey ordered a woods catheter to be placed in pre op and to get a cath UA from woods. Patient has been on antibiotics for UTI. Woods placement attempted twice, one time with 16F woods in kit and second time with 12F cudae, Both times unsuccessful. Patient had some blood at the end of the catheter after these attempts. Patient states he has had issues with catheter placements in the past and has had several procedures with Dr. Ty Urologist in the past. Clean catch UA was collected and sent to lab for UA.
[2024-08-09 13:57] LABS: UA Slide Review UA Slide Review Perf; Urine Color Orange (Yellow)
[2024-08-09 13:58] LABS: Add Urine Culture? Yes
--- NOTE | 2024-08-09 14:19 | W.PM.OPSUD ---
Surgery/Procedure H&P Update DATE OF PROCEDURE: August 09, 2024 DATE H&P PERFORMED: 07/29/24 H&P UPDATE INFORMATION: I have reviewed H&P completed within last 30 days, I have examined patient prior to procedure and No changes to prior documentation CHANGES TO PREVIOUS DOCUMENTATION: I have talked with patient about UA results which they were unable to achieve a Lyon catheter placement and clean-catch from the Lyon and unfortunately were unsuccessful to obtain a Lyon he had a new recheck on the clean-catch had some improvement bacteria he denies any symptomatology. I staffed this with Dr. Ryan in our preoperative clinic physician there is no further recommendations at this point time from a further treatment or any need for postponing his surgery any longer he is already been on ciprofloxacin 750 mg twice daily he is having and denying any urinary symptoms today. At this point time I talked about his wrist and at this point time he elects to proceed with surgical intervention today for a right total knee arthroplasty?Geoffrey robotic assisted. He has been optimized to the preoperative clearance process and ready to proceed with surgical intervention. All questions been answered this time. Will proceed with surgery today. PREOP DIAGNOSIS: Right knee degenerative joint disease PRIMARY INDICATION FOR PROCEDURE: Right knee degenerative joint disease PLANNED PROCEDURE: Operation Date: 08/09/24 14:25 Proposed Procedures p Geoffrey Robot Total Knee Arthroplasty(Right) - Jean Carlos Ramsey DO
[2024-08-09] MEDS: acetaminophen 1,000 MG/100 ML PIGGYBACK 400 MG IV ×2 (14:34→18:31)
[2024-08-09] MEDS: sodium chloride 0.9% 1,000 ML 30 ML IV (14:34)
[2024-08-09] MEDS: clindamycin 900 MG/50 ML PREMIX 100 MG IV ×2 (14:39→22:41)
[2024-08-09 14:41] LABS: Basophils # 0.1 10^3/uL (0.0-0.1); Basophils % 0.6 %; Eosinophils # 0.2 10^3/uL (0.0-0.8); Eosinophils % 2.1 %; Hematocrit 42.6 % (37-53); Lymphocytes # 2.5 10^3/uL (0.8-4.8); Lymphocytes % 22.3 %; Mean Corpuscular Hemoglobin 29.4 pg (27-33); Mean Corpuscular Volume 86.4 fl (82-101); Mean Platelet Volume 9.9 fL (7.4-10.4); Monocytes # 0.8 10^3/uL (0.2-0.9); Monocytes % 6.7 %; Neutrophils # 7.75 10^3/uL (1.8-7.7); Neutrophils % 68.1 %; Nucleated Red Blood Cells % 0 %; Platelet Count 300 10^3/cmm (157-399); Red Blood Count 4.93 10^6/uL (3.85-5.65); Red Cell Distribution Width 13.8 % (12.1-15.1); White Blood Count 11.37 10^3/uL (3.29-11.43)
--- NOTE | 2024-08-09 14:41 | XRR_ITS ---
PROCEDURE INFORMATION: Exam: XR Right Knee Exam date and time: 08/09/2024 4:59 PM Age: 88 years old Clinical indication: Device placement; Joint replacement hardware; Prior surgery; Surgery date: Post-operative (0-2 days); Surgery type: Tka; Additional info: S/P R tka TECHNIQUE: Imaging protocol: Radiologic exam of the right knee. Views: 3 views. COMPARISON: CT knee RT [facility] [id number] 07/29/2024 12:52 PM FINDINGS: Bones/joints: Recent total knee arthroplasty. Hardware appears intact without complication. Subcutaneous/intra-articular gas and edema along the extensor surface of the knee. No acute fracture. Soft tissues: See Bones/joints finding. Vasculature: Vascular calcifications. XR/XR knee RT 3V* [id number] IMPRESSION: Status post total knee arthroplasty without apparent complication.
[2024-08-09 14:56] LABS: Blood Urea Nitrogen 19 mg/dL (8-23); Calcium 9.6 mg/dL (8.5-10.5); Carbon Dioxide 24 mmol/L (22-29); Chloride 103 mmol/L (98-107); Creatinine Clr Calc Pharmacy 53.3033; Glucose 140 mg/dL (65-115); Osmolality Calculated 291 mOsm/kg (285-295); Sodium 138 mmol/L (136-145)
[2024-08-09] MEDS: tranexamic acid 1,000 mg/10mL SDV 1000 MG IV (15:10)
--- NOTE | 2024-08-09 15:10 | ANES.PROC ---
Anesthesia Procedures Procedure/Date: 08/09/24 Nerve Block ^: Nerve Block 1: Main Anesthesia: general anesthesia Time Out Performed: Yes Consent: from patient Nerve block location: adductor canal Anesthesia monitors applied: pulse oximetry, EKG, BP cuff and oxygen Nerve block position: supine Anesthetic Used: ropivicaine 0.5% Amount of anesthesia used (mL): 20 Ultrasound used to: recognize landmarks Nerve Stimulator Used?: Yes Interscalene/Femoral BLK: other needle (pjunk) Injection: neg aspiration of heme Patient Tolerated Procedure: well Complications: none
[2024-08-09] MEDS: ROPivacaine 0.2% Premix 100 mL 200 MG INTRA-ARTI (15:32)
[2024-08-09] MEDS: ketorolac 30 mg/mL INJ XX (15:32)
[2024-08-09] MEDS: EPINEPHrine 1 mg/mL INJ XX (15:32)
[2024-08-09] MEDS: tranexamic acid 1,000 mg/10mL SDV 1000 MG XX (15:32)
[2024-08-09] MEDS: VANCOMYCIN ADD-Vantage 1,000 MG VIAL 1000 MG XX (15:36)
--- NOTE | 2024-08-09 16:46 | P.BOP_ITS ---
Date of Procedure: 08/09/2024 Surgeon: Jean Carlos Ramsey DO [employer] Machine Operator(s): Shawn Ramsey PA-C Procedure(s) performed: Right total knee arthroplasty?Geoffrey robotic assisted Findings of the procedure(s): Patient found to have severe right knee degenerative joint disease underwent procedure as planned without issues or complications. Estimated blood loss: 50 mL Specimen(s) removed: Tibia femur and patellar bone cuts removed Post-operative diagnosis: Right knee degenerative joint disease
--- NOTE | 2024-08-09 16:47 | P.OP_ITS ---
Operative Report Date of procedure: August 09, 2024 Surgeon: Jean Carlos Ramsey DO Surface Plate Inspector: Shawn Ramsey PA-C: PA was necessary for assistance in this case with leg positioning retraction and protection of neurovascular structures as well as assistance in implantation wound closure and dressing application. Procedure: Preoperative diagnosis: Right knee degenerative joint disease Post-op diagnosis: Same Procedure done: Right total knee arthroplasty, cemented?robotic assisted Geoffrey Implants: Katie triathlon size 5 femur CR cemented?Right [place] triathlon size? 5 tibia universal baseplate cemented Katie triathlon symmetric patella size 33 mm [place] triathlon polyethylene 11mm Surgeon: Jean Carlos Ramsey DO Estimated blood?loss: 50 mL Tourniquet 59minutes IV fluids: 900 mL Urine output: No Lyon Complications: None Condition: stable Disposition: floor Brief History: Patient is a 88-year-old male with with chronic?Right knee degenerative joint disease.? Patient has been worked up in the outpatient setting in the orthopedic office at this point time through shared decision making given? [id number] arthritis as well as failed conservative treatment, and pt would?like to proceed with a?Right total knee arthroplasty.? Through shared decision making elected to proceed with surgical intervention for?Right total knee arthroplasty.? We talked about continued conservative treatment and surgical intervention as far as the risk benefits complications alternatives surgical and nonsurgical treatment options.? At this point time understanding patient risks with surgery he agrees to proceed with surgical intervention.? Once again? risk with surgery include but are not?limited to make it better make it worse blood clot, heart attack, stroke, on the table, infection, injury to nerves or vessels, persistent pain, arthrofibrosis, implant failure.? Understanding these risks patient agrees to proceed with surgical intervention consent was obtained in preoperative holding area.? All questions answered. Procedure: Patient was seen and evaluated in the preoperative holding area.? Consent was reviewed and signed with patient with plan for?Right total knee arthroplasty.? All questions answered.? Correct extremity marked.? Patient seen and evaluated by the anesthesia department and once cleared for surgery was taken back to the operative suite.? Patient was placed into a supine position on the OR table.? All bony prominences were well-padded.? Patient was appropriately secured to the bed.? Patient underwent anesthesia per the anesthesia department.? Patient received spinal anesthesia and? Lyon catheter was placed.? A nonsterile tourniquet was applied to the?Right thigh.? At this point in time a final timeout performed.? Patient received appropriate preoperative antibiotics and TXA. Next the?Right?lower extremity was then prepped and draped in standard orthopedic fashion. Esmarch tourniquet was used exsanguinate the?Right?lower extremity.? Tourniquet was insufflated to 250 mmHg. A standard anterior incision was made over midline of the knee.? Sharp scalpel excision through skin and subcutaneous tissue full-thickness skin flaps were made.? Fascia was elevated off of the extensor retinaculum was stable with medial parapatellar arthrotomy was then made.? The performed standard sequential releases..? Immediately on entry into the joint patient was found to have severe eburnated bone and tricompartmental arthritic changes noted.? With significant osteophyte formation.? Next the the patella was then stuffed and the knee was then flexed.?? Viktor was placed superiorly around the anterior aspect of the femur this was freed of synovium and I subsequently then placed by 2 femur pins to establish my femur arrays for the Geoffrey robot.? These were then placed bicortically and? femur array was then appropriately secured with appropriate visualization.? Next attention was turned towards the tibial rays.? These were then drilled sequentially bicortically in parallel fashion and intraincisional.? I then placed my guide as well as my tibial array on in place.? This was appropriately secured and had excellent visualization with the Geoffrey robot.? Next the tibial checkpoint as well as femur checkpoint were then placed.? At this point time I then subsequently established my head center as well as my medial?lateral malleoli as well as my checkpoints.? Next utilizing standard Geoffrey technology I then mapped out the appropriate points and confirmation points around the femur as well as the tibia in standard fashion.? Once this was then done I then removed all osteophytes in preparation for dynamic testing.? All osteophytes were removed as well as I removed the ACL and the PCL was excised due to its significant tearing and degeneration noted.? At this point time the knee was brought into full extension and we performed our standard evaluation of our gap balancing stressing his?ligaments and extension as well as flexion appropriate adjustments were made to have appropriate gap balancing in both flexion and extension.? This plan for final counts.? We get a preoperative plan evaluating our implants which was a size 5 femur and a size 5 tibia.? Next we brought in the Geoffrey robot and sequentially made our femur cuts.? All excess bony cuts were then removed.? Finally we made our tibial cut.? Once this was done a standard PCL retractor was then placed into this position I excised the medial and?lateral meniscus.? The tibial cut was then subsequently removed all excess bony debris was removed.? I then utilized a?lamina wire brush maker and remove the posterior osteophytes.? At this point time sized the tibia and confirmed this was a size 5.? I utilized our blunt probe to establish rotation of tibial implant.? Once this was done I then placed my tibia size 5 trial in appropriate position and then subsequently placed tibial pins to hold this into place placed, we trialed to a size 11 mm poly as well as a size 5 femur which was appropriately impacted in place knee was then subsequently brought into extension. Trials were then assessed,? this was stable with varus valgus stress in extension as well as had symmetrical translation when brought into flexion demonstrating symmetrical gaps. I had excellent balance gaps in flexion and extension with varus and valgus stresses.? At this point I was satisfied with these implants these were then verified and opened on the back table size 5 tibia, size 5 femur,? size 11 mm polythickness.? We did confirm appropriate gap balancing and stresses as well as alignment utilizing? Geoffrey and were satisfied with this plan.? ?At this point time with my trials in place I then towel clip the patella everted this made appropriate measurements subsequently utilizing freehand technique performed by patellar resurfacing this was confirmed to be appropriate resection and subsequently sized to be a 33 mm symmetric.? My drill peg guides were then clamped and appropriate position and appropriate position in the patella for appropriate tracking and parallel with the joint.? Pegs were drilled trial implant was placed and the knee was then subsequently ranged and found to have excellent patellar tracking.? Femur pegs were then drilled.? All checkpoints as well as guidepins and arrays were removed and appropriate counts made.?Satisfied with our tibial placement rotation I then utilized the keel punch and prepped the tibia.? At this point time all of our trial implants were removed.? The wound bed? was thoroughly irrigated and dried and prepped for ciro entation.? Cement was mixed on the back table.? Once cement was ready this was then covered onto the tibia and the tibial baseplate was then impacted and all excess cement was removed.? Next the polyethylene was then impacted into place on the tibial baseplate.? Next cement was placed onto the femur as well as under the femur implants and impacted in to place and all excess cement was extruded and removed.? Knee was taken into full extension? to clear all excess cement was removed.? Warm saline was placed over the joint.? I then towel clip patella and dried for cementation. cemented the patella into place.? This was all clamped and the cement was allowed to cure.? Thorough irrigation performed with pulse?lavage.? I then placed my periarticular injection while the cement was curing.? Once cured the knee was taken through range of motion and had excellent stability and gaps were balanced in flexion and extension.? Tourniquet was then deflated. hemostasis satisfactory with electrocautery. Vancomycin powder was placed in the wound bed for antibiotic infection.? Next I then subsequently closed the capsule with Ethibond suture as well as a running strata fix suture.? Knee was then taken through range of motion 30 times.? Next the skin was then closed in?layered fashion of running stratifix sutures of deep and subcutenous tissue and skin.? ?closed in flexion and Prineo glue was then placed over the incision this allowed to cure.? Incision was covered with miko incisional VAC, with ABDs soft roll and Bentley wrap.? Patient was then awakened from anesthesia and taken to PACU in stable condition. Disposition: Patient taken to PACU in stable condition will be admitted to the floor for pain control PT/OT weight-bear as tolerated?Right?lower extremity dressing changes as needed, DVT prophylaxis. Pain control. Patient will receive appropriate postoperative antibiotics. patient will be seen today by the internal medicine team for medical management.? Patient will follow up with the office in 2 weeks.? Patient understands agrees with current plan.? All questions answered.
--- NOTE | 2024-08-09 16:47 | P.BOP_ITS ---
Date of Procedure: [August 09, 2024] Surgeon: [Dr. Ramsey DO] Physical Therapy Instructor(s): [Shawn Ramsey PA-C] Procedure(s) performed: [Right total knee arthroplasty with Geoffrey robotic assist] Findings of the procedure(s): [Right knee degenerative joint disease. Procedure went well and as planned.] Estimated blood loss: [50 mL] Specimen(s) removed: [N/A] Post-operative diagnosis: [Right knee degenerative joint disease]
--- NOTE | 2024-08-09 16:49 | PM.PACU ---
PACU note Narrative: Patient is an 88-year-old male that just underwent a right total knee arthroplasty. Pt transferred to PACU in stable condition. Dressing is dry. pt is awake and alert. compartments are soft and compressible. pt can wiggle toes and plantarflex and dorsiflex foot. Distal pulses are palpable toes are warm and well-perfused. Cap refill is normal and under 2 seconds. Pain is controlled. Exam: awake Disposition: admitted
[2024-08-09] MEDS: fentaNYL 50 mcg/mL INJ 2mL IVP (17:12)
--- NOTE | 2024-08-09 17:36 | PM.HP ---
Providers/Chief Complaint Admitting Physician: This is a consult note Primary Care Provider: Chacorta Stokes MD Chief Complaint: M17.11 History of Present Illness This is a consult note Annika Montgomery is a 88 year old male with a history of metastatic prostate cancer, with bony metastasis, stopped treatment in September 2020, however recently started Lupron and Xtandi injections, history of type 2 diabetes mellitus, history of bladder neck contracture, hypertension, CKD stage III, who presents to [facility] for knee replacement. Patient seen postoperatively, in the postop recovery unit, still under the effect of anesthetic, his only complaint is pain, he is alert to person and place, not to time, unfortunately nursing staff were unable to place a Lyon catheter, likely history from bladder neck stricture, denies any abdominal pain, or flank pain Review of Systems Const: Denies: fever(s) Card: Denies: chest pain Resp: Denies: dyspnea Medications/Allergies Home Medications Medication Instructions Recorded Confirmed Last Taken Type meloxicam 7.5 mg tablet 7.5 mg PO DAILY #90 tabs 02/25/24 08/05/24 07/31/24 Rx amlodipine 10 mg tablet 10 mg PO DAILY blood pressure #30 03/16/24 08/05/24 08/09/24 Rx tabs hydrocodone 7.5 mg-acetaminophen 1 tab PO BID PRN pain 30 days #60 07/01/24 08/05/24 08/05/24 Rx 325 mg tablet tabs amitriptyline 10 mg tablet 10 mg PO .hs chronic pain #30 tabs 07/08/24 08/05/24 08/05/24 Rx ciprofloxacin HCl 750 mg tablet 750 mg PO BID PRN urinary tract 08/03/24 08/05/24 08/08/24 Rx infection symptoms #60 tabs zolpidem 5 mg tablet 5 mg PO .hs PRN insomnia #30 tabs 08/03/24 08/05/24 08/04/24 Rx insulin glargine 100 unit/mL 50 unit SUBCUT BEDTIME Diabetic 08/04/24 08/05/24 08/08/24 History subcutaneous solution (Lantus U-100 Insulin) lorazepam 0.5 mg tablet 0.5 mg PO DAILY anxiety 08/05/24 08/05/24 08/05/24 History Allergies Allergy/AdvReac Type Severity Reaction Status Date / Time celecoxib [From Celebrex] Allergy Mild ALGY-Swell Verified 08/04/24 13:18 Lip/Tongue/Throat pioglitazone [From Actos] Allergy Unknown Unknown Verified 08/04/24 13:18 sitagliptin [From Januvia] Allergy Unknown Unknown Verified 08/04/24 13:18 Penicillins Allergy ALGY-Anaphy Verified 08/05/24 13:16 laxis Sulfa (Sulfonamide Allergy ALGY-Rash Verified 08/05/24 13:16 Antibiotics) PFSH Acute PFSH: Medical History CKD (chronic kidney disease) stage 3, GFR 30-59 ml/min Cr 1.5 05/14/2024 GFR 44 Increase in serum creatinine from prior measurement Recurrent UTI Gross hematuria 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, bilateral History of worms GERD (gastroesophageal reflux disease) Insomnia Sebaceous cyst 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 T12 compression fracture HTN (hypertension) Diabetes Surgical History History of bilateral cataract extraction History of total knee replacement left knee Hx of arthroscopy of left knee Hx of left inguinal hernia repair History of colon resection Hx of radical prostatectomy Family History Father , AT AGE 81 CVA Stroke Social History Smoking and tobacco/nicotine status: never used tobacco/nicotine Alcohol intake: never Substance/Drug Use: never Adopted: No Caregiver/support person: No Lives independently: No Household members: spouse Marital status: Current occupational status: retired Vitals/I&O/Wt Last Vital Signs Temp 97.7 F 08/09/24 17:27 Pulse 84 08/09/24 17:27 Resp 17 08/09/24 17:27 BP 140/67 08/09/24 17:27 Pulse Ox 93 08/09/24 17:27 O2 Del Method Nasal Cannula 08/09/24 17:27 O2 Flow Rate 3 08/09/24 17:27 08/09/24 08/09/24 08/09/24 06:59 14:59 22:59 Intake Total 150 / 150 100 / 250 Output Total 50 / 50 Balance 150 / 150 50 / 200 Weight last 48 hrs Weight 86.183 kg Physical Exam Const: COMMON NORMALS: no acute distress ORIENTATION/CONSCIOUSNESS: Yes awake, Yes oriented to person and Yes oriented to place; not oriented to time HENMT: COMMON NORMALS: normocephalic HEAD & SCALP: normocephalic Neck/C-Spine: COMMON NORMALS: no JVD Resp: COMMON NORMALS: normal respiratory effort, No retractions, No use of accessory muscles and clear to auscultation bilaterally AUSCULTATION: clear to auscultation bilaterally Cardio: COMMON NORMALS: regular rate, regular rhythm, S1 normal heart sound present and S2 normal heart sound present RATE: regular rate RHYTHM: regular rhythm HEART SOUNDS: S1 normal heart sound present and S2 normal heart sound present GI: COMMON NORMALS: Normal to inspection, nondistended, normoactive bowel sounds present, Soft to palpation and non-tender Extremity: COMMON NORMALS: no calf tenderness and no pedal edema OTHER: Right knee no binder Psych: COMMON NORMALS: mental status grossly normal Data 08/09/24 14:27 08/09/24 14:27 A&P Assessment and plan (1) Diabetes: Qualifiers: Diabetes mellitus type: type 2 Diabetes mellitus assistant terminal manager insulin use: with assistant terminal manager use Diabetes mellitus complication status: with circulatory complication Diabetes mellitus complication detail: with other circulatory complications Qualified Code(s): E11.59 - Type 2 diabetes mellitus with other circulatory complications; Z79.4 - senior care (current) use of insulin (2) HTN (hypertension): Qualifiers: Hypertension type: primary hypertension Qualified Code(s): I10 - Essential (primary) hypertension (3) CKD (chronic kidney disease) stage 3, GFR 30-59 ml/min: Qualifiers: Chronic kidney disease stage 3 subtype: stage 3a (GFR 45-59) Qualified Code(s): N18.31 - Chronic kidney disease, stage 3a (4) Recurrent UTI: (5) Bladder neck stricture: (6) Prostate cancer metastatic to bone: (7) Status post right knee replacement: Plan Status post right knee replacement -Pain control and anticoagulation as per orthopedic team Type 2 diabetes mellitus -Moderate dose sliding scale Hypertension, resume home amlodipine Bladder neck stricture -Unable to place Lyon catheter -Monitor urine output closely postoperatively -Will do bladder ultrasound, bladder ultrasound every 4 hours -Can try a straight cath based on clinical progress Recurrent UTI -UA with evidence of UTI -Start ciprofloxacin 400 mg twice daily -Follow urine culture -Renal ultrasound Full code # Eliquis for DVT prophylaxis Attestations Medical Necessity Statement*: Patient requires hospitalization for right knee replacement with type 2 diabetes mellitus, recurrent UTI, bladder neck stricture, hypertension, recurrent UTI Diagnoses Type 2 diabetes mellitus with other circulatory complication, with long-term current use of insulin E11.59; Z79.4 Diabetes mellitus type: type 2 Diabetes mellitus assistant terminal manager insulin use: with group home use Diabetes mellitus complication status: with circulatory complication Diabetes mellitus complication detail: with other circulatory complications Primary hypertension I10 Hypertension type: primary hypertension Stage 3a chronic kidney disease N18.31 Chronic kidney disease stage 3 subtype: stage 3a (GFR 45-59) Recurrent UTI N39.0 Bladder neck stricture N32.0 Prostate cancer metastatic to bone C61; C79.51 Status post right knee replacement Z96.651
--- NOTE | 2024-08-09 17:54 | SUR.PHASEI ---
1653 Bilat foot pumps on, connected to machine and working. 1745 Pt taken to room 260 on 3.5 Liters of 02. VSS. Sats 91-93% on 3 liters per nasal cannula. RN student and Imani SMILEY looked at dressing and accepted patient with no questions or concerns.
--- NOTE | 2024-08-09 18:17 | US_ITS ---
WS: [id number] RENAL ULTRASOUND HISTORY: uti, history of bladder neck contracture, prostate ca COMPARISON: None available. TECHNIQUE: 2-D and color Doppler imaging of the kidney submitted. Right kidney: 10.1 cm x 6.2 cm x 5.1 cm. Cortex: 1.1 cm Normal size kidney. Normal renal cortex. There are several small cortical cysts scattered throughout the renal parenchyma. No solid mass identified. The largest cyst is 3.2 cm. Left kidney: 10.8 cm x 2.3 cm x 6.6 cm. Cortex: 1.5 cm Normal size kidney with several cortical cysts. No solid mass. Largest cyst 2.3 cm. Aorta: Not imaged. Urinary Bladder: Mildly distended bladder. There is a small bladder diverticulum from the posterior R IGHT bladder wall. US/US renal BI* [id number] IMPRESSION: 1. No renal obstruction. 2. Bilateral cortical renal cysts. 3. RIGHT lateral bladder diverticulum.
[2024-08-09] MEDS: iron polysaccharide complex 150 mg Capsule PO (18:33)
[2024-08-09] MEDS: calcium carb-vit d 600mg/400unit 1 Tablet 1 EACH PO (18:33)
[2024-08-09] MEDS: docusate sodium 100 mg Capsule PO (18:33)
[2024-08-09] MEDS: ciprofloxacin 400 MG/200 ML PREMIX 200 MG IV (18:34)
[2024-08-09] MEDS: lactated ringers 1,000 ML 83 ML IV (18:34)
[2024-08-09] MEDS: oxyCODONE 5 mg IR Tab/Cap PO (18:35)
[2024-08-09 20:48] LABS: Glucose Point of Care 354 mg/dL (70-110)
[2024-08-09] MEDS: chlorhexidine gluconate 0.12% Btl 473 mL 30 ML MUCOUS MEM (21:33)
[2024-08-09] MEDS: insulin lispro 100 unit/1 mL SUBCUT (21:33)
[2024-08-09] MEDS: amitriptyline 25 mg Tablet 12.5 MG PO (21:35)
[2024-08-09] MEDS: tranexamic acid 1,000 MG/100 ML PREMIX 600 MG IV (23:36)
[2024-08-10] VITALS: BP 115/65; PULSE 96; RESP 20; TEMP 36.4; O2SAT 93
--- NOTE | 2024-08-10 01:00 | ANE.PACU2 ---
Inpatient post-anesthesia follow up: Airway intact: Yes Vital signs: Temperature 97.5 F Pulse Rate 18 Respiratory Rate 77 Blood Pressure 151/61 Pulse Oximetry 96 Oxygen Delivery Me thod Nasal Cannula Oxygen Flow Rate 2 Fraction of Inspir ed Oxygen Hydration adequate: Yes Nausea and vomiting: No Pain level: 1 Mental status: Baseline
[2024-08-10] MEDS: acetaminophen 1,000 MG/100 ML PIGGYBACK 400 MG IV ×2 (02:02→10:57)
[2024-08-10 04:00] VITALS: BP 163/66; PULSE 92; RESP 16; TEMP 36.4; O2SAT 93
[2024-08-10] MEDS: clindamycin 900 MG/50 ML PREMIX 100 MG IV (05:36)
[2024-08-10 05:46] LABS: Basophils % 0.1 %; Hematocrit 41.4 % (37-53); Lymphocytes # 1.5 10^3/uL (0.8-4.8); Lymphocytes % 10.4 %; Mean Corpuscular HGB Conc 32.9 g/dL (30-55); Mean Corpuscular Hemoglobin 29.3 pg (27-33); Mean Corpuscular Volume 89.2 fl (82-101); Mean Platelet Volume 10.5 fL (7.4-10.4); Monocytes # 0.6 10^3/uL (0.2-0.9); Monocytes % 3.8 %; Neutrophils # 12.47 10^3/uL (1.8-7.7); Neutrophils % 85.2 %; Nucleated Red Blood Cells % 0 %; Platelet Count 292 10^3/cmm (157-399); Red Blood Count 4.64 10^6/uL (3.85-5.65); Red Cell Distribution Width 13.8 % (12.1-15.1); White Blood Count 14.65 10^3/uL (3.29-11.43)
[2024-08-10 06:07] LABS: Blood Urea Nitrogen 19 mg/dL (8-23); Carbon Dioxide 20 mmol/L (22-29); Chloride 103 mmol/L (98-107); Creatinine Clr Calc Pharmacy 50.6754; Glucose 271 mg/dL (65-115); Osmolality Calculated 292 mOsm/kg (285-295); Sodium 135 mmol/L (136-145)
[2024-08-10 06:08] LABS: Anion Gap 16.5 (5-19); Potassium 4.5 mmol/L (3.5-5.1)
[2024-08-10] MEDS: ciprofloxacin 400 MG/200 ML PREMIX 200 MG IV (06:12)
[2024-08-10 06:28] LABS: Glucose Point of Care 274 mg/dL (70-110)
[2024-08-10 08:15] VITALS: BP 143/76; PULSE 88; RESP 14; TEMP 36.5; O2SAT 94
[2024-08-10] MEDS: iron polysaccharide complex 150 mg Capsule PO (08:28)
[2024-08-10] MEDS: calcium carb-vit d 600mg/400unit 1 Tablet 1 EACH PO (08:28)
[2024-08-10] MEDS: TRAMadol 50 mg Tablet PO (08:28)
[2024-08-10] MEDS: amlodipine 10 mg Tablet PO (08:29)
[2024-08-10] MEDS: apixaban 5 mg Tablet 2.5 MG PO (08:29)
[2024-08-10] MEDS: LORazepam 0.5 mg Tablet PO (08:29)
[2024-08-10] MEDS: insulin lispro 100 unit/1 mL SUBCUT (08:29)
[2024-08-10] MEDS: docusate sodium 100 mg Capsule PO (08:29)
[2024-08-10] MEDS: multivitamin therapeutic Tablet 1 TAB PO (08:29)
--- NOTE | 2024-08-10 09:32 | PC.CHAP ---
Pastoral Care Encounter/Spiritual Assessment Type of Contact [] Declined renewal specialist visit [] Patient/Family/Request visit [] Outpatient visit [] Follow-up visit [] Physician referral [] Code/Alert [] Routine visit [] Staff referral [] Actively dying [] Patient sleeping [] Family support [] [] Out of room [] Palliative care [] [x] Receiving care in room [] Pre-surgical visit [] Trauma [] Long length of stay [] ICU visit [] Other: Relational/Emotional Strength [] Patient feels connected with others/family/visitors/staff [] Distress [] Loneliness/isolation [] Abandonment Spirituality of Patient [] Person of Susy [] Attends Scientologist of their Susy [] Believes in Prayer [] Reads Bible or Alevism materials [] There are Spiritual issues to be addressed Metal Building Assembler Interventions [] Prayer [] Active listening [] Non-anxious presence [] Spiritual/emotional support [] Crisis/trauma care [] Spiritual counseling [] Bereavement support [] Provided bereavement packet [] Provided Bible/devotional materials [] Provided toy/stuffed animal, coloring book to patient or family member [] Provided Communion [] Anointing/[place] [] Salvation [] Completed spiritual assessment [] Other: Impact on Illness or Injury [] Angry [] Fearful [] Anxious [] Often cries [] Exhaustion [] Unable to work [] Unable to attend anabaptist [] Unable to walk/stand [] Unable to read [] Unable to drive [] Unable to eat/drink [] Unable to sleep [] Unable to be with family [] Patient intubated [] Other: Summary Time spent with patient
[2024-08-10] MEDS: lactated ringers 1,000 ML 83 ML IV (10:54)
[2024-08-10] MEDS: insulin glargine 100 units/1 mL 10 UNIT SUBCUT (10:54)
[2024-08-10 11:07] LABS: Glucose Point of Care 198 mg/dL (70-110)
[2024-08-10 11:31] LABS: NT Pro B Type Natriuretic Pept 455 pg/mL (0-450)
[2024-08-10 11:52] VITALS: BP 151/61; PULSE 77; RESP 18; TEMP 36.4; O2SAT 96
--- NOTE | 2024-08-10 12:30 | PM.DCS ---
Discharge Providers Date of Admission: 08/09/24 18:17 Date of Discharge: August 10, 2024 Attending Provider at Admission: Jean Carlos Ramsey DO Attending Provider at Discharge: Jean Carlos Ramsey DO Consults: Hospitalist?Dr. Padilla Primary Care Provider: Chacorta Stokes MD Diagnoses at Discharge Discharge Diagnosis (1) Diabetes: Status: Acute Qualifiers: Diabetes mellitus complication detail: with other circulatory complications Diabetes mellitus complication status: with circulatory complication Diabetes mellitus ferry terminal agent insulin use: with usp use Diabetes mellitus type: type 2 Qualified Code(s): E11.59 - Type 2 diabetes mellitus with other circulatory complications; Z79.4 - custodial (current) use of insulin (2) HTN (hypertension): Status: Acute Qualifiers: Hypertension type: primary hypertension Qualified Code(s): I10 - Essential (primary) hypertension (3) CKD (chronic kidney disease) stage 3, GFR 30-59 ml/min: Status: Acute Qualifiers: Chronic kidney disease stage 3 subtype: stage 3a (GFR 45-59) Qualified Code(s): N18.31 - Chronic kidney disease, stage 3a Permanent problem details: Cr 1.5 05/14/2024 GFR 44 (4) Recurrent UTI: Status: Acute (5) Bladder neck stricture: Status: Acute (6) Prostate cancer metastatic to bone: Status: Acute (7) Status post right knee replacement: Status: Acute Reason for Visit Reason for Visit: M17.11 Brief History: Status post right TKA Hospital Course Hospital Course Patient presented to the preoperative holding area with plan for right total knee arthroplasty after patient has been worked up in the outpatient setting for failed conservative treatment of right knee degenerative joint disease. Once cleared by anesthesia for surgery patient subsequently was taken back to the operative suite underwent anesthesia per anesthesia department and then subsequently underwent a right total knee arthroplasty. Procedure was performed without any complications patient was taken to PACU in stable condition patient recovered well in PACU and then was admitted to the floor postoperatively internal medicine was consulted and on board for medical management and assistance with care. Patient received appropriate PT/OT, postoperative antibiotics, postoperative TXA, pain control, postoperative DVT prophylaxis. Elevation and ice. Patient encouraged for knee range of motion allowed weightbearing as tolerated to the operative lower extremity. Dressing was changed as needed, labs were monitored daily. Patient recovered well postoperatively and worked well and progressed well with therapy. Internal medicine on board and refer to their daily progress notes for detailed recommendations and management. Patient does have history of recurrent UTIs and will be discharged on ciprofloxacin per their recommendations. It was determined on postoperative day 1 the patient was stable for discharge from an orthopedic standpoint and medicine. Patient was comfortable with discharge and plan was discharged home. Patient received appropriate discharge instructions as well as pain medication and DVT prophylaxis postoperatively. Given appropriate instructions for dressing management. Patient will follow-up with Dr. Ramsey/orthopedics in the office in 2 weeks. All questions answered. Understand if there is any issues questions or concerns and contact the office. Physical Exam Narrative: Right knee examination demonstrates dressings on in place are clean dry and intact compartments are soft compressible normal postoperative swelling and tenderness palpation about the right knee. Patient's calf soft nontender. Patient is able to wiggle the toes plantarflex and dorsiflex ankle, sensations intact light touch distally distal pulses are palpable Discharge Data Studies Completed and Pending Completed Studies During Hospitalization Category Date Time Status XR knee RT 3V* [id number] Routine Exams 08/09/24 14:41 Completed US kidney bilateral [US renal BI* [id number]] Routine Ultrasound 08/09/24 18:17 Completed Pending at discharge Category Date Time Status XR chest 1V portable [id number] Routine Exams 08/10/24 10:54 Ordered Basic Metabolic Panel AM LABS Lab 08/11/24 04:00 Ordered Basic Metabolic Panel AM LABS Lab 08/12/24 04:00 Ordered Complete Blood Count w/Auto AM LABS Lab 08/11/24 04:00 Ordered Complete Blood Count w/Auto AM LABS Lab 08/12/24 04:00 Ordered Urine Culture Routine Lab 08/09/24 13:10 Results Radiology Impressions Knee X-Ray 08/09/24 14:41 IMPRESSION: Status post total knee arthroplasty without apparent complication. Renal Ultrasound 08/09/24 18:17 IMPRESSION: 1. No renal obstruction. 2. Bilateral cortical renal cysts. 3. RIGHT lateral bladder diverticulum. Laboratory Results WBC 14.65 10^3/uL (3.29-11.43) H 08/10/24 05:10 RBC 4.64 10^6/uL (3.85-5.65) 08/10/24 05:10 Hgb 13.60 g/dL (11.27-16.99) 08/10/24 05:10 Hct 41.4 % (37-53) 08/10/24 05:10 MCV 89.2 fl (82-101) 08/10/24 05:10 MCH 29.3 pg (27-33) 08/10/24 05:10 MCHC 32.9 g/dL (30-55) 08/10/24 05:10 RDW 13.8 % (12.1-15.1) 08/10/24 05:10 Plt Count 292 10^3/cmm (157-399) 08/10/24 05:10 MPV 10.5 fL (7.4-10.4) H 08/10/24 05:10 Neut % (Auto) 85.2 % 08/10/24 05:10 Lymph % (Auto) 10.4 % 08/10/24 05:10 [place] % (Auto) 3.8 % 08/10/24 05:10 Eos % (Auto) 0.0 % 08/10/24 05:10 Baso % (Auto) 0.1 % 08/10/24 05:10 Neut # (Auto) 12.47 10^3/uL (1.8-7.7) H 08/10/24 05:10 Lymph # (Auto) 1.5 10^3/uL (0.8-4.8) 08/10/24 05:10 [place] # (Auto) 0.6 10^3/uL (0.2-0.9) 08/10/24 05:10 Eos # (Auto) 0.0 10^3/uL (0.0-0.8) 08/10/24 05:10 Baso # (Auto) 0.0 10^3/uL (0.0-0.1) 08/10/24 05:10 Nucleated RBC % (auto) 0 % 08/10/24 05:10 Nucleated RBCs # 0.0 /100WBC 08/10/24 05:10 Sodium 135 mmol/L (136-145) L 08/10/24 05:10 Potassium 4.5 mmol/L (3.5-5.1) 08/10/24 05:10 Chloride 103 mmol/L (98-107) 08/10/24 05:10 Carbon Dioxide 20 mmol/L (22-29) L 08/10/24 05:10 Anion Gap 16.5 (5-19) 08/10/24 05:10 BUN 19 mg/dL (8-23) 08/10/24 05:10 Creatinine 1.2 mg/dL (0.7-1.2) 08/10/24 05:10 GFR Calculation Not Reportable 08/10/24 05:10 Glucose 271 mg/dL (65-115) H 08/10/24 05:10 POC Glucose 198 mg/dL (70-110) H 08/10/24 10:54 Calculated Osmolality 292 mOsm/kg (285-295) 08/10/24 05:10 Calcium 9.0 mg/dL (8.5-10.5) 08/10/24 05:10 NT-Pro-B Natriuret Pep 455 pg/mL (0-450) H 08/10/24 05:10 Urine Color [place] (Yellow) A 08/09/24 13:10 Urine Appearance Turbid (CLEAR) A 08/09/24 13:10 Urine pH 6.0 (5-7) 08/09/24 13:10 Ur Specific [place] 1.020 (1.005-1.030) 08/09/24 13:10 Urine Protein 3+ (Negative) A 08/09/24 13:10 Urine Glucose (UA) Trace (Normal) H 08/09/24 13:10 Urine Ketones Negative (Negative) 08/09/24 13:10 Urine Blood 3+ (Negative) A 08/09/24 13:10 Urine Nitrate Negative (Negative) 08/09/24 13:10 Urine Bilirubin Negative (Negative) 08/09/24 13:10 Urine Urobilinogen 1.0 mg/dL (Negative) 08/09/24 13:10 Ur Leukocyte Esterase 3+ (Negative) A 08/09/24 13:10 Urine RBC >100 /hpf (0-2) H 08/09/24 13:10 Urine WBC >100 /hpf (0-5) H 08/09/24 13:10 Ur Squamous Epith Cells 11-20 /hpf (0-5) 08/09/24 13:10 Amorphous Sediment Not Reportable 08/09/24 13:10 Urine Bacteria Trace /hpf (NONE) 08/09/24 13:10 Hyaline Casts 4.87 /lpf 08/09/24 13:10 Blood Type O Positive 08/09/24 14:27 Rho(D) Type Rh positive 08/09/24 14:27 Antibody Screen Negative 08/09/24 14:27 Vitals Last Vital Signs Temp 97.5 F L 08/10/24 11:52 Pulse 77 08/10/24 11:52 Resp 18 08/10/24 11:52 BP 151/61 08/10/24 11:52 Pulse Ox 96 08/10/24 11:52 O2 Del Method Nasal Cannula 08/10/24 11:52 O2 Flow Rate 2 08/09/24 20:53 Discharge Plan Discharge Patient Disposition: Home Health Service Condition: Stable Prescriptions: Continued amlodipine 10 mg tablet 10 mg PO DAILY Qty: 30 5RF amitriptyline 10 mg tablet 10 mg PO .hs Qty: 30 5RF ciprofloxacin HCl 750 mg tablet 750 mg PO BID PRN (Reason: urinary tract infection symptoms) Qty: 60 3RF zolpidem 5 mg tablet 5 mg PO .hs PRN (Reason: insomnia) Qty: 30 3RF lorazepam 0.5 mg tablet 0.5 mg PO DAILY Changed insulin glargine [Lantus U-100 Insulin] 100 unit/mL solution 40 unit SUBCUT BEDTIME Qty: 10 0RF Held meloxicam 7.5 mg tablet 7.5 mg PO DAILY Qty: 90 1RF Hold Instructions: Resume on 08/24/24. hydrocodone-acetaminophen 7.5-325 mg tablet 1 tab PO BID PRN (Reason: pain) 30 Days Qty: 60 0RF Hold Instructions: Resume on 08/24/24. Rx Instructions: Refill on or after each 30-day interval No Action fluconazole 200 mg tablet 200 mg PO DAILY 14 Days Qty: 14 0RF Rx Instructions: take on tab a day for 14 days Discharge Orders: Discharge Order (Routine); Ordered 08/10/24 Ordered By: Jean Carlos Ramsey Referrals: Jean Carlos Ramsey DO [Physician] - 08/24/24 9:00 am Discharge Diet: Regular Discharge Activity: Limit activity as instructed and Use walker/crutches as instructed Patient Instructions: Oxycodone, Rapid Release (By mouth), Ondansetron (By mouth), Apixaban (By mouth), Acute Wound Care (DC), Total Knee Replacement (GEN), Opioid Safety, Post Anesthesia Care Activity Restrictions/Additional Instructions: Discharge instructions [place] Dressing--Keep dressing on and dry. After 3 days you can remove some of the dressing and shower. disconnect battery pack when showering. [place] dressing will stay on until follow up appt in 2 weeks. The battery pack for the dressing will at 5-7 days. Battery pack can be removed and discarded once batteries . Patient may weight-bear as tolerate to the operative extremity Utilize walker as needed Encourage knee range of motion Ice and elevate as needed for pain and swelling Take pain medication as prescribed Take antinausea medication as needed Pain medication can cause constipation. take [id number] stool softeners and or MiraLAX. Take prescribed Eliquis twice daily for the next 14 days for blood clot prevention May supplement for pain with Tylenol [id number] as needed No baths or soaks Follow-up in the orthopedic office in 2 weeks Contact the office for any questions or concerns Discharge Attestations Time Spent in Discharge Care*: less than 30 min Quality Metrics Clinical Quality Measures [ No reported AMI, CVA or VTE this stay] Coding Level of Care Code Acute Code for Chg Fwd Diagnoses Type 2 diabetes mellitus with other circulatory complication, with long-term current use of insulin E11.59; Z79.4 Diabetes mellitus complication detail: with other circulatory complications Diabetes mellitus complication status: with circulatory complication Diabetes mellitus usp insulin use: with usp use Diabetes mellitus type: type 2 Primary hypertension I10 Hypertension type: primary hypertension Stage 3a chronic kidney disease N18.31 Chronic kidney disease stage 3 subtype: stage 3a (GFR 45-59) Recurrent UTI N39.0 Bladder neck stricture N32.0 Prostate cancer metastatic to bone C61; C79.51 Status post right knee replacement Z96.651 Time Spent (min) 20
[2024-08-10 12:35] VITALS: BP 151/61; PULSE 18; RESP 77; TEMP 36.4; O2SAT 96
--- NOTE | 2024-08-10 13:38 | PM.PN ---
Subjective Subjective: Patient was seen this morning, denies any chest pain, shortness of breath, no nausea, no vomiting, we discussed his UTI, will discharge him on ciprofloxacin 400 mg twice daily, he is requiring 2 L denies any cardiovascular history, no history of smoking no history of COPD, denies feeling short of breath he did work with physical therapy denies feeling shortness of breath no lower extreme edema, we discussed likely weaning off oxygen, likely persistent hypoxia due to general anesthetic effect and atelectasis of the lung, recommended continued incentive spirometer use, continue ambulatory status, will see if he can wean off oxygen. -Discussed to continue to use incentive spirometer, remain ambulatory, -I ordered a chest x-ray, however patient declined -On discharge patient was weaned to room air -Asymptomatic, no shortness of breath, no fevers, no cough -Will discharge on ciprofloxacin -Decrease his Lantus dose to 40 units at bedtime, nursing staff will confirm dosing with him -Has a history of ureteral stricture, denies any dysuria, hematuria, he did void this morning without any difficulty Vitals/I&O/Wt Last Vital Signs Temp 97.5 F L 08/10/24 12:35 Pulse 18 L 08/10/24 12:35 Resp 77 H 08/10/24 12:35 BP 151/61 08/10/24 12:35 Pulse Ox 96 08/10/24 12:35 O2 Del Method Nasal Cannula 08/10/24 11:52 O2 Flow Rate 2 08/09/24 20:53 08/09/24 08/10/24 08/10/24 22:59 06:59 14:59 Intake Total 1115.383 / 1265.383 300 / 8856.839 1682.617 / 3658.617 Output Total 50 / 50 550 / 600 400 / 400 Balance 1065.383 / 1215.383 -250 / 382.716 8817.617 / 3258.617 Weight last 48 hrs Weight 93.576 kg Weight 86.183 kg Weight 86.183 kg Physical Exam Const: COMMON NORMALS: no acute distress and patient oriented x3 Resp: COMMON NORMALS: normal respiratory effort, No retractions, No use of accessory muscles and clear to auscultation bilaterally AUSCULTATION: clear to auscultation bilaterally Cardio: COMMON NORMALS: regular rate, regular rhythm, S1 normal heart sound present and S2 normal heart sound present RATE: regular rate RHYTHM: regular rhythm HEART SOUNDS: S1 normal heart sound present and S2 normal heart sound present GI: COMMON NORMALS: Normal to inspection, nondistended, normoactive bowel sounds present and non-tender Extremity: COMMON NORMALS: no pedal edema Neuro: COMMON NORMALS: patient oriented x3 Psych: COMMON NORMALS: mental status grossly normal Data 08/10/24 05:10 08/10/24 05:10 Micro: Microbiology 08/09/24 13:10 Urine Culture - Preliminary Urine,Clean Catch A&P Assessment and plan (1) Diabetes: Qualifiers: Diabetes mellitus type: type 2 Diabetes mellitus longterm insulin use: with longterm use Diabetes mellitus complication status: with circulatory complication Diabetes mellitus complication detail: with other circulatory complications Qualified Code(s): E11.59 - Type 2 diabetes mellitus with other circulatory complications; Z79.4 - long term care pharmacist (current) use of insulin (2) HTN (hypertension): Qualifiers: Hypertension type: primary hypertension Qualified Code(s): I10 - Essential (primary) hypertension (3) CKD (chronic kidney disease) stage 3, GFR 30-59 ml/min: Qualifiers: Chronic kidney disease stage 3 subtype: stage 3a (GFR 45-59) Qualified Code(s): N18.31 - Chronic kidney disease, stage 3a (4) Recurrent UTI: (5) Bladder neck stricture: (6) Prostate cancer metastatic to bone: (7) Status post right knee replacement: Plan Status post right knee replacement -Pain control and anticoagulation as per orthopedic team Type 2 diabetes mellitus -As above Hypertension, resume home amlodipine Bladder neck stricture -Is able to urinate this morning Recurrent UTI -Discharged on ciprofloxacin Full code # Eliquis for DVT prophylaxis Attestations Medical Necessity Statement*: Patient will be discharged today Diagnoses Type 2 diabetes mellitus with other circulatory complication, with long-term current use of insulin E11.59; Z79.4 Diabetes mellitus type: type 2 Diabetes mellitus longterm insulin use: with watermelon inspector use Diabetes mellitus complication status: with circulatory complication Diabetes mellitus complication detail: with other circulatory complications Primary hypertension I10 Hypertension type: primary hypertension Stage 3a chronic kidney disease N18.31 Chronic kidney disease stage 3 subtype: stage 3a (GFR 45-59) Recurrent UTI N39.0 Bladder neck stricture N32.0 Prostate cancer metastatic to bone C61; C79.51 Status post right knee replacement Z96.651
[2024-08-11 05:28] LABS: Glucose Point of Care 138 mg/dL (70-110)
== END 2024-08-10 13:25 | disposition home health service (06) ==
LOC: MEDSURG 08-10 10:03
PROVIDERS: Family Medicine; Physician Assistant; Admitting Provider Student in an Organized Health Care Education/Training Program; PCP Family Medicine Adult Medicine; Visit Provider Student in an Organized Health Care Education/Training Program
PROC: 8E0Y0CZ Robotic Assisted Procedure of Lower Extremity, Open Approach (ICD-10-PCS; CPT 27447; principal; 2024-08-09 13:55)
DX: M17.11 Unilateral primary osteoarthritis, right knee (principal); N39.0 Urinary tract infection, site not specified; E11.22 Type 2 diabetes mellitus with diabetic chronic kidney disease; N18.31 Chronic kidney disease, stage 3a; I12.9 Hypertensive chronic kidney disease with stage 1 through stage 4 chronic kidney disease, or unspecified chronic kidney disease; Z79.4 Long term (current) use of insulin; N32.0 Bladder-neck obstruction; C61 Malignant neoplasm of prostate; C79.51 Secondary malignant neoplasm of bone; Z96.651 Presence of right artificial knee joint; K21.9 Gastro-esophageal reflux disease without esophagitis
CPT/HCPCS: 27447; 20985; 36415; 36416; 73562; 76770; 80048; 81001; 82962; 83880; 85025; 86850; 86900; 87086; 87106; 96372; 97116; 97161; 97165; C1776; G0378; J0131; J0171; J0744; J1100; J1815; J1885; J2405; J2704; J2710; J2795; J3010; J3370; J3490; J7030; J7120

== ENCOUNTER → 2024-08-24 08:37 | Outpatient (BNVA) | payer MEDICARE, OTHER, SELFPAY | PROVIDERS: PCP Family Medicine Adult Medicine; Visit Provider Physician Assistant | DX: Z96.651 Presence of right artificial knee joint (principal) | CPT/HCPCS: 73560; 73565; 99024 ==

== ENCOUNTER 2024-09-08 10:59 | Oncology outpatient (recurring) (ONCR) | payer MEDICARE, OTHER, SELFPAY | END 2024-09-28 23:59 | disposition home or self-care (01) | PROVIDERS: PCP Family Medicine Adult Medicine; Visit Provider Internal Medicine Medical Oncology | DX: Z51.11 Encounter for antineoplastic chemotherapy (principal); C79.11 Secondary malignant neoplasm of bladder; C61 Malignant neoplasm of prostate; C79.51 Secondary malignant neoplasm of bone; Z79.899 Other long term (current) drug therapy | CPT/HCPCS: 99214 ==

== ENCOUNTER → 2024-10-05 09:24 | Outpatient (BNVA) | payer MEDICARE, OTHER, SELFPAY | PROVIDERS: PCP Family Medicine Adult Medicine; Visit Provider Physician Assistant | DX: Z96.651 Presence of right artificial knee joint (principal) | CPT/HCPCS: 73560; 73565; 99024 ==

== ENCOUNTER 2024-10-07 09:59 | Oncology outpatient (recurring) (ONCR) | payer MEDICARE, OTHER, SELFPAY ==
[2024-10-07 10:41] LABS: Basophils # 0.1 10^3/uL (0.0-0.1); Basophils % 0.5 %; Eosinophils # 0.4 10^3/uL (0.0-0.8); Eosinophils % 4.5 %; Hematocrit 42.8 % (37-53); Lymphocytes # 2.2 10^3/uL (0.8-4.8); Mean Corpuscular HGB Conc 32.7 g/dL (30-55); Mean Corpuscular Hemoglobin 28.3 pg (27-33); Mean Corpuscular Volume 86.5 fl (82-101); Mean Platelet Volume 9.8 fL (7.4-10.4); Monocytes # 0.6 10^3/uL (0.2-0.9); Monocytes % 6.2 %; Neutrophils % 64.5 %; Nucleated Red Blood Cells % 0 %; Platelet Count 354 10^3/cmm (157-399); Red Blood Count 4.95 10^6/uL (3.85-5.65); Red Cell Distribution Width 14.8 % (12.1-15.1); White Blood Count 9.31 10^3/uL (3.29-11.43)
[2024-10-07 11:11] LABS: Alanine Aminotransferase 14 U/L (0-41); Albumin Level 3.9 g/dL (3.5-5.2); Alkaline Phosphatase 153 U/L (40-130); Blood Urea Nitrogen 21 mg/dL (8-23); Calcium 9.6 mg/dL (8.5-10.5); Carbon Dioxide 26 mmol/L (22-29); Chloride 99 mmol/L (98-107); Globulin 3.8 g/dL (1.3-4.6); Glucose 256 mg/dL (65-115); Osmolality Calculated 294 mOsm/kg (285-295); Sodium 136 mmol/L (136-145); Testosterone Total 6.1 ng/dL (193-740); Total Bilirubin 0.6 mg/dL (0.15-1.2); Total Protein 7.7 g/dL (6.6-8.7)
[2024-10-07 11:14] LABS: Anion Gap 15.3 (5-19); Potassium 4.3 mmol/L (3.5-5.1)
[2024-10-07 11:15] LABS: Aspartate Amino Transferase 20 U/L (0-40); Lactate Dehydrogenase 238 U/L (135-225)
[2024-10-07] MEDS: leuprolide 22.5 mg Kit IM (12:48)
== END 2024-10-29 23:59 | disposition home or self-care (01) ==
PROVIDERS: Internal Medicine Hematology & Oncology; PCP Family Medicine Adult Medicine; Visit Provider Internal Medicine
DX: Z51.11 Encounter for antineoplastic chemotherapy (principal); C61 Malignant neoplasm of prostate; C79.11 Secondary malignant neoplasm of bladder; C79.51 Secondary malignant neoplasm of bone; Z79.899 Other long term (current) drug therapy; Z79.818 Long term (current) use of other agents affecting estrogen receptors and estrogen levels
CPT/HCPCS: 36415; 80053; 83615; 84153; 84403; 85025; 96402; 99213; J9217

== ENCOUNTER → 2024-11-04 09:33 | Outpatient (BNVA) | payer MEDICARE, OTHER, SELFPAY | PROVIDERS: PCP Family Medicine Adult Medicine; Visit Provider Emergency Medicine | DX: N30.01 Acute cystitis with hematuria (principal) | CPT/HCPCS: 81000; 87086 ==

== ENCOUNTER → 2024-11-30 09:28 | Outpatient (BNVA) | payer MEDICARE, OTHER, SELFPAY | PROVIDERS: PCP Family Medicine; Visit Provider Student in an Organized Health Care Education/Training Program | DX: Z96.651 Presence of right artificial knee joint (principal) | CPT/HCPCS: 73560; 73565; 99213 ==

== ENCOUNTER 2025-01-09 09:52 | Inpatient (IN) | payer MEDICARE, OTHER, SELFPAY ==
[2025-01-09] VITALS (24 sets, daily range): BP systolic 102–168; BP diastolic 68–104; PULSE 84–121; RESP 14–22; TEMP 36.1–37.1; O2SAT 91–97; BMI 27.3
--- NOTE | 2025-01-09 09:59 | XRR_ITS ---
PROCEDURE INFORMATION: Exam: XR Right Hip Exam date and time: 01/09/2025 10:05 AM Age: 89 years old Clinical indication: Injury or trauma; Fall; Blunt trauma (contusions or hematomas); Right; Hip TECHNIQUE: Imaging protocol: Radiologic exam of the right hip. Views: 1 view hip with pelvis when performed. COMPARISON: CT abdomen pelvis wo/w [id number] 12/12/2020 10:26 AM FINDINGS: Bones/joints: There is a femoral neck fracture. Femoral head is in articulation with the acetabulum. Soft tissues: Unremarkable. Intraperitoneal space: Surgical clips are seen in the pelvis. Vasculature: Calcified atherosclerotic changes are seen. XR/XR hip RT 2-3V wo/w pel* [id number] IMPRESSION: Femoral neck fracture.
--- NOTE | 2025-01-09 10:00 | XRR_ITS ---
PROCEDURE INFORMATION: Exam: XR Chest Exam date and time: 01/09/2025 10:03 AM Age: 89 years old Clinical indication: Injury or trauma; Fall; Blunt trauma (contusions or hematomas) TECHNIQUE: Imaging protocol: Radiologic exam of the chest. Views: 1 view. COMPARISON: CR XR chest 1V [id number] 08/09/2019 10:36 AM FINDINGS: Lungs: Pulmonary vessels are within normal limits. Left basilar linear density. Right lung is clear. Pleural spaces: No pneumothorax. Heart/Mediastinum: Mediastinal calcified granulomas. Cardiomediastinal silhouette is within normal limits. Bones/joints: Unremarkable. XR/XR chest 1V portable [id number] IMPRESSION: 1. No acute pulmonary finding. 2. Left basilar linear density. Finding could represent scarring or atelectasis.
--- NOTE | 2025-01-09 10:01 | W.ED.FALL ---
HPI - Fall General: Chief Complaint: Extremity Injury, Lower Stated Complaint: Fall/Right hip pain Time Seen by Provider: 01/09/25 09:58 Source: patient Mode of arrival: ambulatory Limitations: no limitations History of Present Illness: 89-year-old male who states that he went to the bathroom tripped and fell this morning. States he landed on his right hip has been having right hip pain since then along with difficulty ambulating. He denies any other injuries denies hitting his head rates his pain a 5 out of 10 currently. Associated symptoms-after fall: Denies abdominal pain, chest pain, headache(s) or neck pain Related Data Home Medications ?Medication ?Instructions ?Recorded ?Confirmed lorazepam 0.5 mg tablet 0.5 mg PO DAILY anxiety 08/05/24 01/09/25 amitriptyline 25 mg tablet 25 mg PO QPM 01/09/25 01/09/25 Previous Rx's ?Medication ?Instructions ?Recorded meloxicam 7.5 mg tablet 7.5 mg PO DAILY #90 tabs 08/27/24 amlodipine 10 mg tablet 10 mg PO DAILY blood pressure #90 09/16/24 tabs insulin glargine 100 unit/mL 50 unit (0.5 mL) SUBCUT BEDTIME 11/24/24 subcutaneous solution (Lantus Diabetic #50 mL U-100 Insulin) atropine 1 % eye drops 4 drp sublingual Q4H PRN 12/08/24 secretions #5 mL bisacodyl 10 mg rectal suppository 10 mg DC DAILY PRN constipation #5 12/08/24 ea hydroxyzine HCl 25 mg tablet 25 mg PO TID PRN Itching #5 tabs 12/08/24 lorazepam 2 mg/mL oral concentrate 2 mg sublingual Q4H PRN 12/08/24 Anxiety/Seizure #30 mL morphine concentrate 100 mg/5 mL 20 mg sublingual DIRECTED PRN 12/08/24 (20 mg/mL) oral solution Pain/SOB 14 days #30 mL ondansetron 4 mg disintegrating 4 mg translingual Q4H PRN nausea 12/08/24 tablet #5 tabs hydrocodone 10 mg-acetaminophen 1 tab PO TID PRN pain 15 days #45 12/16/24 325 mg tablet tabs zolpidem 5 mg tablet 5 mg PO .hs PRN insomnia #30 tabs 12/29/24 Allergies Allergy/AdvReac Type Severity Reaction Status Date / Time celecoxib (From Celebrex) Allergy Mild ALGY-Swell Verified 12/06/24 08:20 Lip/Tongue/Throat pioglitazone (From Actos) Allergy Unknown Unknown Verified 12/06/24 08:20 sitagliptin (From Januvia) Allergy Unknown Unknown Verified 12/06/24 08:20 Penicillins Allergy ALGY-Anaphy Verified 12/06/24 08:20 laxis Sulfa (Sulfonamide Allergy ALGY-Rash Verified 12/06/24 08:20 Antibiotics) Review of Systems Const: Denies: fever(s), chills, body aches or change in appetite ENMT: Denies: throat pain or dental pain Card: Denies: chest pain Resp: Denies: dyspnea GI: Denies: abdominal pain, nausea, vomiting or diarrhea Musc: Reports: extremity pain; Denies: neck pain or back pain Skin/Breast: Denies: rash Neuro: Denies: headache(s) PFSH ED PFSH: Medical History Anxiety CKD (chronic kidney disease) stage 3, GFR 30-59 ml/min Cr 1.5 05/14/2024 GFR 44 Increase in serum creatinine from prior measurement Recurrent UTI Gross hematuria 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, bilateral History of worms GERD (gastroesophageal reflux disease) Insomnia Sebaceous cyst 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 T12 compression fracture HTN (hypertension) Diabetes Surgical History History of bilateral cataract extraction History of total knee replacement left knee Hx of arthroscopy of left knee Hx of left inguinal hernia repair History of colon resection Hx of radical prostatectomy Family History Father , AT AGE 81 CVA Stroke Social History Smoking and tobacco/nicotine status: never used tobacco/nicotine Alcohol intake: never Substance/Drug Use: never Adopted: No Caregiver/support person: No Lives independently: No Household members: spouse Marital status: Current occupational status: retired Physical Exam Const: COMMON NORMALS: no acute distress, patient oriented x3 and healthy appearing HENMT: COMMON NORMALS: normocephalic and atraumatic HEAD & SCALP: normocephalic and atraumatic Eye: COMMON NORMALS: conjunctivae normal CONJUNCTIVA: Yes conjunctivae normal Neck/C-Spine: COMMON NORMALS: full ROM and supple Chest: COMMONS NORMALS: normal inspection of the chest Resp: COMMON NORMALS: normal respiratory effort Cardio: COMMON NORMALS: regular rate RATE: regular rate Extremity: NARRATIVE EXTREMITY EXAM: tenderness to right hip distal pulses intact Neuro: COMMON NORMALS: patient oriented x3, moves all extremities and no focal motor deficits Psych: COMMON NORMALS: mental status grossly normal, Normal thought process present and cooperative THOUGHT PROCESS: Normal thought process present Skin: COMMON NORMALS: no rashes or lesions noted and no wounds GENERAL SKIN EXAM: no rashes or lesions noted Course Vital Signs: Vital signs: Vital Signs Temperature 97.7 F 01/09/25 09:57 Pulse Rate 119 H 01/09/25 09:57 Respiratory Rate 15 01/09/25 09:57 Blood Pressure 155/90 01/09/25 09:57 Pulse Oximetry 94 01/09/25 09:57 Oxygen Delivery Me thod Room Air 01/09/25 09:57 MDM - Fall Medical Decision Making Patient presents here with a right hip fracture from a fall spoke to orthopedist along with hospitalist will admit this time no other injuries noted Medical Records I reviewed the patient's medical records. Lab Data I reviewed the patient's lab results. 01/09/25 10:06 01/09/25 10:06 Laboratory Results WBC 15.08 10^3/uL (3.29-11.43) H 01/09/25 10:06 RBC 4.96 10^6/uL (3.85-5.65) 01/09/25 10:06 Hgb 13.40 g/dL (11.27-16.99) 01/09/25 10:06 Hct 41.0 % (37-53) 01/09/25 10:06 MCV 82.7 fl (82-101) 01/09/25 10:06 MCH 27.0 pg (27-33) 01/09/25 10:06 MCHC 32.7 g/dL (30-55) 01/09/25 10:06 RDW 16.7 % (12.1-15.1) H 01/09/25 10:06 Plt Count 259 10^3/cmm (157-399) 01/09/25 10:06 MPV 9.4 fL (7.4-10.4) 01/09/25 10:06 Neut % (Auto) 81.0 % 01/09/25 10:06 Lymph % (Auto) 13.3 % 01/09/25 10:06 [place] % (Auto) 4.5 % 01/09/25 10:06 Eos % (Auto) 0.6 % 01/09/25 10:06 Baso % (Auto) 0.3 % 01/09/25 10:06 Neut # (Auto) 12.22 10^3/uL (1.8-7.7) H 01/09/25 10:06 Lymph # (Auto) 2.0 10^3/uL (0.8-4.8) 01/09/25 10:06 [place] # (Auto) 0.7 10^3/uL (0.2-0.9) 01/09/25 10:06 Eos # (Auto) 0.1 10^3/uL (0.0-0.8) 01/09/25 10:06 Baso # (Auto) 0.0 10^3/uL (0.0-0.1) 01/09/25 10:06 Nucleated RBC % (auto) 0 % 01/09/25 10:06 Nucleated RBCs # 0.0 /100WBC 01/09/25 10:06 Sodium 133 mmol/L (136-145) L 01/09/25 10:06 Potassium 3.9 mmol/L (3.5-5.1) 01/09/25 10:06 Chloride 96 mmol/L (98-107) L 01/09/25 10:06 Carbon Dioxide 22 mmol/L (22-29) 01/09/25 10:06 Anion Gap 18.9 (5-19) 01/09/25 10:06 BUN 18 mg/dL (8-23) 01/09/25 10:06 Creatinine 1.2 mg/dL (0.7-1.2) 01/09/25 10:06 GFR Calculation Not Reportable 01/09/25 10:06 Glucose 316 mg/dL (65-115) H 01/09/25 10:06 Calculated Osmolality 290 mOsm/kg (285-295) 01/09/25 10:06 Calcium 9.4 mg/dL (8.5-10.5) 01/09/25 10:06 Total Bilirubin 0.5 mg/dL (0.15-1.2) 01/09/25 10:06 AST 17 U/L (0-40) 01/09/25 10:06 ALT 7 U/L (0-41) 01/09/25 10:06 Alkaline Phosphatase 231 U/L (40-130) H 01/09/25 10:06 Total Protein 8.1 g/dL (6.6-8.7) 01/09/25 10:06 Albumin 3.9 g/dL (3.5-5.2) 01/09/25 10:06 Globulin 4.2 g/dL (1.3-4.6) 01/09/25 10:06 All radiology interpretation(s) finalized by discharge Discharge Plan Discharge Patient Disposition: Admitted As Inpatient Clinical Impression: Closed fracture of right hip Condition: Stable Coding Level of Care Code ED Digital Content Coordinator for uNra Oliver
--- NOTE | 2025-01-09 10:11 | PC.PHAR ---
patient has 15 day supplies of most meds which tells me patient is on hospice, last office visit records states he was given that option. agrees to all medications at this time
--- NOTE | 2025-01-09 10:21 | ECG_ITS ---
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 Measurements Intervals [place] Rate: 119 P: 229 NV: 221 QRS: 17 QRSD: 94 T: 69 QT: 331 QTc: 466 Interpretive Statements ECTOPIC ATRIAL TACHYCARDIA WITH FIRST DEGREE AV BLOCK WITH FREQUENT VENTRICULAR PREMATURE COMPLEXES MINIMAL ST DEPRESSION [0.025+ mV ST DEPRESSION] Compared to ECG 08/09/2019 10:18:26 Ventricular premature complex(es) now present ST (T wave) deviation now present Sinus rhythm no longer present Electronically Signed On 01-09-2025 21:14:18 CDT by Carolina Mon M.D. [email or web address]
--- NOTE | 2025-01-09 10:23 | P.HP_ITS ---
Providers/Chief Complaint 2 Primary Care Provider: Basil Bravo MD Chief Complaint: Fall/Right hip pain History of Present Illness Annika Montgomery is a 89 year old male with past medical history significant for anxiety, chronic kidney disease stage III, cancer, diabetes mellitus, hypertension, and multiple other comorbidities who presents emergency department with fall. Patient reports this morning he was getting dressed when he fell backwards landing on his right hip. He states at that time he developed severe right hip pain. Spouse suspected a broken bone so she called hospice and they recommended he be evaluated if there is concern for broken bone. Patient seen evaluated in the emergency department. Currently rates his pain 5 out of 10. Movement exacerbates the pain. Analgesic received prior to my evaluation did help the pain some. He does note that he has chronic pain secondary to metastatic prostate cancer. He is on hospice care for pain control. His spouse and son are bedside and very supportive. Patient denies prior adverse events to anesthesia. He notes that he fairly recently underwent right total knee replacement in July with Dr. Ramsey. In emergency department, plain films shows right sided broken hip per my read. Radiology read is pending. Review of Systems 2 Narrative: A complete review of systems was obtained and is negative except as stated in HPI. Medications/Allergies Home Medications ?Medication ?Instructions ?Recorded ?Confirmed ?Last Taken ?Type lorazepam 0.5 mg tablet 0.5 mg PO DAILY anxiety 04/2101/09/25 01/09/25 History meloxicam 7.5 mg tablet 7.5 mg PO DAILY #90 tabs 01/09/25 01/09/25 Rx amlodipine 10 mg tablet 10 mg PO DAILY blood pressur e #90 09/16/24 01/09/25 01/09/25 Rx tabs insulin glargine 100 unit/mL 50 unit (0.5 mL) SUBCUT B EDTIME 11/24/24 01/09/25 01/08/25 Rx subcutaneous solution (Lantus Diabetic #50 mL U-100 Insulin) atropine 1 % eye drops 4 drp sublingual Q4H PRN 09/2201/09/25 Unknown Rx secretions #5 mL bisacodyl 10 mg rectal suppository 10 mg UT DAILY PRN constipation #5 12/08/24 01/09/25 Unknown Rx ea hydroxyzine HCl 25 mg tablet 25 mg PO TID PRN Itching #5 tabs 12/08/24 01/09/25 01/09/25 Rx lorazepam 2 mg/mL oral concentrate 2 mg sublingual Q4H PRN 12/08/24 01/09/25 Unknown Rx Anxiety/Seizure #30 mL morphine concentrate 100 mg/5 mL 20 mg sublingual D IRECTED PRN 12/08/24 01/09/25 Unknown Rx (20 mg/mL) oral solution Pain/SOB 14 days #30 mL ondansetron 4 mg disintegrating 4 mg translingual Q4H PRN nausea 12/08/24 01/09/25 Unknown Rx tablet #5 tabs hydrocodone 10 mg-acetaminophen 1 tab PO TID PRN pain 15 days #45 12/16/24 01/09/25 Unknown Rx 325 mg tablet tabs zolpidem 5 mg tablet 5 mg PO .hs PRN insomnia #30 tabs 12/29/24 01/09/25 Unknown Rx amitriptyline 25 mg tablet 25 mg PO QPM 01/09/2501/0901/08/25 History Allergies Allergy/AdvReac Type Severity Reaction Status Date / Time celecoxib (From Celebrex) Allergy Mild ALGY-Swell Verified 12/06/24 08:20 Lip/Tongue/Throat pioglitazone (From Actos) Allergy Unknown Unknown Verified 12/06/24 08:20 sitagliptin (From Januvia) Allergy Unknown Unknown Verified 12/06/24 08:20 Penicillins Allergy ALGY-Anaphy Verified 12/06/24 08:20 laxis Sulfa (Sulfonamide Allergy ALGY-Rash Verified 12/06/24 08:20 Antibiotics) PFSH Acute 2 PFSH: Medical History Anxiety CKD (chronic kidney disease) stage 3, GFR 30-59 ml/min Cr 1.5 05/14/2024 GFR 44 Increase in serum creatinine from prior measurement Recurrent UTI Gross hematuria 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, bilateral History of worms GERD (gastroesophageal reflux disease) Insomnia Sebaceous cyst 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 T12 compression fracture HTN (hypertension) Diabetes Surgical History History of bilateral cataract extraction History of total knee replacement left knee Hx of arthroscopy of left knee Hx of left inguinal hernia repair History of colon resection Hx of radical prostatectomy Family History Father , AT AGE 81 CVA Stroke Social History Smoking and tobacco/nicotine status: never used tobacco/nicotine Alcohol intake: never Substance/Drug Use: never Adopted: No Caregiver/support person: No Lives independently: No Household members: spouse Marital status: Current occupational status: retired Vitals/I&O/Wt Last Vital Signs Temp 97.7 F 01/09/25 09:57 Pulse 119 H 01/09/25 09:57 Resp 15 01/09/25 09:57 BP 155/90 01/09/25 09:57 Pulse Ox 94 01/09/25 09:57 O2 Del Method Room Air 01/09/25 09:57 Weight last 48 hrs Weight 88.904 kg Physical Exam 2 Narrative: General: Patient is awake and alert. Pleasant. Head: Normocephalic. Atraumatic. EOM intact. Hard of hearing. Neck: No JVD. Cardiovascular: RRR. No gallops. No murmurs. Lungs: Clear to auscultation, no use of accessory muscles, no crackles or wheezes. Skin: No jaundice. No rashes. Abdomen: Normal bowel sounds, abdomen soft and nontender. Extremities: No cyanosis or clubbing. Right lower extremity is slightly shorter and externally rotated. Sensation and distal pulses intact. Musculoskeletal: No swollen or erythematous joints. Neurological: Moves all 4 extremities. No myoclonus. Data 01/09/25 10:06 01/09/25 10:06 A&P Assessment and plan (1) Hip fracture, right: Right-sided hip fracture secondary to mechanical fall possibly underlying prostate cancer with bone mets Strict bedrest Multimodal pain control Bowel regiment Orthopedic surgery consulted, follow-up recommendations N.p.o. after midnight for now pending surgical evaluation (2) Prostate cancer metastatic to bone: Metastatic prostate cancer, recently diagnosed 23 years ago Has been on hospice services for about 2 months Spouse was notified hospice regarding the fall and they recommended ER visit Recommend proceeding with hip fracture fixation as he be bedbound otherwise Continue home medications with Ativan and Hopkins as needed Check urinalysis for possible underlying infection (3) Anxiety: Continue home Ativan (4) HTN (hypertension): Continue Norvasc Qualifiers: Hypertension type: primary hypertension Qualified Code(s): I10 - Essential (primary) hypertension (5) Diabetes: 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 Continue Lantus at reduced dose Sliding scale correction Qualifiers: Diabetes mellitus type: type 2 Diabetes mellitus terminal worker insulin use: with terminal worker use Diabetes mellitus complication status: with circulatory complication Diabetes mellitus complication detail: with other circulatory complications Qualified Code(s): E11.59 - Type 2 diabetes mellitus with other circulatory complications; Z79.4 - 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 Will need pharmacological prophylaxis postoperatively. CODE STATUS: DNR-confirmed with family and patient PDMP PDMP Reviewed: Not Reviewed Attestations 2 Medical Necessity Statement*: Patient presents with mechanical fall, found to have right-sided hip fracture with expected hospitalization to cross 2 midnights for surgical fixation, labs, analgesics, therapy and supportive care. Coding Level of Care Code Acute Code for [facility] Diagnoses Hip fracture, right S72.001A Prostate cancer metastatic to bone C61; C79.51 Anxiety F41.9 Primary hypertension I10 Hypertension type: primary hypertension Type 2 diabetes mellitus with other circulatory complication, with long-term current use of insulin E11.59; Z79.4 Diabetes mellitus type: type 2 Diabetes mellitus terminal worker insulin use: with intermediate use Diabetes mellitus complication status: with circulatory complication Diabetes mellitus complication detail: with other circulatory complications Stage 3a chronic kidney disease N18.31 Chronic kidney disease stage 3 subtype: stage 3a (GFR 45-59)
[2025-01-09 10:25] LABS: Basophils % 0.3 %; Eosinophils # 0.1 10^3/uL (0.0-0.8); Eosinophils % 0.6 %; Lymphocytes % 13.3 %; Mean Corpuscular HGB Conc 32.7 g/dL (30-55); Mean Corpuscular Volume 82.7 fl (82-101); Mean Platelet Volume 9.4 fL (7.4-10.4); Monocytes # 0.7 10^3/uL (0.2-0.9); Monocytes % 4.5 %; Neutrophils # 12.22 10^3/uL (1.8-7.7); Nucleated Red Blood Cells % 0 %; Platelet Count 259 10^3/cmm (157-399); Red Blood Count 4.96 10^6/uL (3.85-5.65); Red Cell Distribution Width 16.7 % (12.1-15.1); White Blood Count 15.08 10^3/uL (3.29-11.43)
[2025-01-09 10:35] LABS: Alanine Aminotransferase 7 U/L (0-41); Albumin Level 3.9 g/dL (3.5-5.2); Alkaline Phosphatase 231 U/L (40-130); Anion Gap 18.9 (5-19); Aspartate Amino Transferase 17 U/L (0-40); Blood Urea Nitrogen 18 mg/dL (8-23); Calcium 9.4 mg/dL (8.5-10.5); Carbon Dioxide 22 mmol/L (22-29); Chloride 96 mmol/L (98-107); Creatinine Clr Calc Pharmacy 48.5945; Globulin 4.2 g/dL (1.3-4.6); Glucose 316 mg/dL (65-115); Osmolality Calculated 290 mOsm/kg (285-295); Potassium 3.9 mmol/L (3.5-5.1); Sodium 133 mmol/L (136-145); Total Bilirubin 0.5 mg/dL (0.15-1.2); Total Protein 8.1 g/dL (6.6-8.7)
[2025-01-09 10:38] LABS: INR 0.92 (0.8-1.2)
[2025-01-09 11:04] LABS: Bilirubin Urine Neg (Negative); Blood Urine 3+ (Negative); Glucose Urine UA 4+ (Normal); Ketones Urine Negative (Negative); Nitrate Urine Negative (Negative); Protein Urine 1+ (Negative); Specific Gravity, Urine 1.015 (1.005-1.030); Urine Appearance Turbid (CLEAR); Urine Color Dark Yellow (Yellow); Urobilinogen Urine Neg (Negative); pH Urine 6 (5-7)
[2025-01-09 11:05] LABS: Leukocyte Esterase Urine 2+ (Negative)
[2025-01-09 11:07] LABS: Bacteria Urine None Seen /hpf; Hyaline Casts Urine 0-4 /lpf; RBC Urine >100 /hpf (0-2); Squamous Epithelial Cell Urine 0-5 /hpf (0-5); WBC Urine >100 /hpf (0-5)
[2025-01-09] MEDS: ondansetron 2 mg/ML SDV 2 mL 4 MG IVP (11:14)
[2025-01-09] MEDS: HYDROmorphone 0.5 MG/0.5 ML INJ IVP ×2 (11:15→13:21)
[2025-01-09 11:16] LABS: Add Urine Culture? Yes; UA Slide Review UA Slide Review Perf
--- NOTE | 2025-01-09 11:24 | ED_ITS ---
HPI - Extremity Problem 2 General: Chief complaint: Extremity Injury, Lower Stated complaint: Fall/Right hip pain Time Seen by Provider: 01/09/25 09:58 Source: patient Mode of arrival: ambulatory Limitations: no limitations Related Data Home Medications ?Medication ?Instructions ?Recorded ?Confirmed lorazepam 0.5 mg tablet 0.5 mg PO DAILY anxiety 11/0 04/2101/09/25 amitriptyline 25 mg tablet 25 mg PO QPM 01/09/2501/09 Previous Rx's ?Medication ?Instructions ?Recorded meloxicam 7.5 mg tablet 7.5 mg PO DAILY #90 tabs amlodipine 10 mg tablet 10 mg PO DAILY blood pressur e #90 09/16/24 tabs insulin glargine 100 unit/mL 50 unit (0.5 mL) SUBCUT B EDTIME 11/24/24 subcutaneous solution (Lantus Diabetic #50 mL U-100 Insulin) atropine 1 % eye drops 4 drp sublingual Q4H PRN 09/22 secretions #5 mL bisacodyl 10 mg rectal suppository 10 mg AR DAILY PRN constipation #5 12/08/24 ea hydroxyzine HCl 25 mg tablet 25 mg PO TID PRN Itching #5 tabs 12/08/24 lorazepam 2 mg/mL oral concentrate 2 mg sublingual Q4H PRN 12/08/24 Anxiety/Seizure #30 mL morphine concentrate 100 mg/5 mL 20 mg sublingual D IRECTED PRN 12/08/24 (20 mg/mL) oral solution Pain/SOB 14 days #30 mL ondansetron 4 mg disintegrating 4 mg translingual Q4H PRN nausea 12/08/24 tablet #5 tabs hydrocodone 10 mg-acetaminophen 1 tab PO TID PRN pain 15 days #45 12/16/24 325 mg tablet tabs zolpidem 5 mg tablet 5 mg PO .hs PRN insomnia #30 tabs 12/29/24 Allergies Allergy/AdvReac Type Severity Reaction Status Date / Time celecoxib (From Celebrex) Allergy Mild ALGY-Swell Verified 12/06/24 08:20 Lip/Tongue/Throat pioglitazone (From Actos) Allergy Unknown Unknown Verified 12/06/24 08:20 sitagliptin (From Januvia) Allergy Unknown Unknown Verified 12/06/24 08:20 Penicillins Allergy ALGY-Anaphy Verified 12/06/24 08:20 laxis Sulfa (Sulfonamide Allergy ALGY-Rash Verified 12/06/24 08:20 Antibiotics) PFSH ED 2 PFSH: Medical History Anxiety CKD (chronic kidney disease) stage 3, GFR 30-59 ml/min Cr 1.5 05/14/2024 GFR 44 Increase in serum creatinine from prior measurement Recurrent UTI Gross hematuria 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, bilateral History of worms GERD (gastroesophageal reflux disease) Insomnia Sebaceous cyst 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 T12 compression fracture HTN (hypertension) Diabetes Surgical History History of bilateral cataract extraction History of total knee replacement left knee Hx of arthroscopy of left knee Hx of left inguinal hernia repair History of colon resection Hx of radical prostatectomy Family History Father , AT AGE 81 CVA Stroke Social History Smoking and tobacco/nicotine status: never used tobacco/nicotine Alcohol intake: never Substance/Drug Use: never Adopted: No Caregiver/support person: No Lives independently: No Household members: spouse Marital status: Current occupational status: retired Course 2 Vital Signs: Vital signs: Vital Signs Temperature 97.0 F L 01/09/25 14:29 Pulse Rate 103 H 01/09/25 14:29 Respiratory Rate 22 H 01/09/25 14:29 Blood Pressure 139/88 01/09/25 14:29 Pulse Oximetry 97 01/09/25 14:29 Oxygen Delivery Me thod Nasal Cannula 01/09/25 14:29 Oxygen Flow Rate 2 01/09/25 14:29 MDM - Extremity (Nontraumatic) Lab Data 01/09/25 10:06 01/09/25 10:06 Radiology Impressions Hip/Pelvis X-Ray 01/09/25 09:59 IMPRESSION: Femoral neck fracture. Chest X-Ray 01/09/25 10:00 IMPRESSION: 1. No acute pulmonary finding. 2. Left basilar linear density. Finding could represent scarring or atelectasis. Laboratory Results WBC 15.08 10^3/uL (3.29-11.43) H 01/09/25 10:06 RBC 4.96 10^6/uL (3.85-5.65) 01/09/25 10:06 Hgb 13.40 g/dL (11.27-16.99) 01/09/25 10:06 Hct 41.0 % (37-53) 01/09/25 10:06 MCV 82.7 fl (82-101) 01/09/25 10:06 MCH 27.0 pg (27-33) 01/09/25 10:06 MCHC 32.7 g/dL (30-55) 01/09/25 10:06 RDW 16.7 % (12.1-15.1) H 01/09/25 10:06 Plt Count 259 10^3/cmm (157-399) 01/09/25 10:06 MPV 9.4 fL (7.4-10.4) 01/09/25 10:06 Neut % (Auto) 81.0 % 01/09/25 10:06 Lymph % (Auto) 13.3 % 01/09/25 10:06 [place] % (Auto) 4.5 % 01/09/25 10:06 Eos % (Auto) 0.6 % 01/09/25 10:06 Baso % (Auto) 0.3 % 01/09/25 10:06 Neut # (Auto) 12.22 10^3/uL (1.8-7.7) H 01/09/25 10:06 Lymph # (Auto) 2.0 10^3/uL (0.8-4.8) 01/09/25 10:06 [place] # (Auto) 0.7 10^3/uL (0.2-0.9) 01/09/25 10:06 Eos # (Auto) 0.1 10^3/uL (0.0-0.8) 01/09/25 10:06 Baso # (Auto) 0.0 10^3/uL (0.0-0.1) 01/09/25 10:06 Nucleated RBC % (auto) 0 % 01/09/25 10:06 Nucleated RBCs # 0.0 /100WBC 01/09/25 10:06 PT 13.00 SECONDS (12.1-14.9) 01/09/25 10:06 INR 0.92 (0.8-1.2) 01/09/25 10:06 Sodium 133 mmol/L (136-145) L 01/09/25 10:06 Potassium 3.9 mmol/L (3.5-5.1) 01/09/25 10:06 Chloride 96 mmol/L (98-107) L 01/09/25 10:06 Carbon Dioxide 22 mmol/L (22-29) 01/09/25 10:06 Anion Gap 18.9 (5-19) 01/09/25 10:06 BUN 18 mg/dL (8-23) 01/09/25 10:06 Creatinine 1.2 mg/dL (0.7-1.2) 01/09/25 10:06 GFR Calculation Not Reportable 01/09/25 10:06 Glucose 316 mg/dL (65-115) H 01/09/25 10:06 Calculated Osmolality 290 mOsm/kg (285-295) 01/09/25 10:06 Calcium 9.4 mg/dL (8.5-10.5) 01/09/25 10:06 Total Bilirubin 0.5 mg/dL (0.15-1.2) 01/09/25 10:06 AST 17 U/L (0-40) 01/09/25 10:06 ALT 7 U/L (0-41) 01/09/25 10:06 Alkaline Phosphatase 231 U/L (40-130) H 01/09/25 10:06 Total Protein 8.1 g/dL (6.6-8.7) 01/09/25 10:06 Albumin 3.9 g/dL (3.5-5.2) 01/09/25 10:06 Globulin 4.2 g/dL (1.3-4.6) 01/09/25 10:06 Discharge Plan Discharge Patient Disposition: Admitted As Inpatient Admit Provider: Shawn Werner Clinical Impression: Closed fracture of right hip Condition: Stable Coding Level of Care Code ED Senior Systems Developer for Nura Oliver
[2025-01-09 11:33] LABS: Glucose Point of Care 303 mg/dL (70-110)
[2025-01-09] MEDS: insulin lispro 100 unit/1 mL SUBCUT ×3 (11:50→21:33)
[2025-01-09] MEDS: levofloxacin-dextrose 5 % 750 MG/150 ML PREMIX 100 MG IV (11:58)
--- OUTSIDE RECORDS SUMMARY | 2025-01-09 13:27 | XMS_ITS | Encounter Summary ---
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 Name Role Phone Michael Gómez MD Primary Care Provider [phone] Reason for Referral * PET Scan (Routine) - Closed Specialty Diagnoses / Procedures Referred By Contac t Referred To Contact Radiology Diagnoses Prostate cancer (CMS/HCC) Increased prostate specific antigen (PSA) velocity Back pain Procedures PET TUMOR AXUMIN ING W CT SKB MDTH PET TUMOR IMG W CT SKL BSE MID THG IA FLUCICLOVINE F-18 Michael Gómez MD [address] [place] [phone] Phone: tel: fax: [facility] Nuclear Medicine [address] [place] [phone] Phone: tel: fax: Referral ID Status Reason Start Date Expiration Date Visits Re quested Visits Authorized [id number] Closed 04/10/2020 05/11/2021 1 1 Encounter Details Date Type Department Care Team (Late st Contact Info) Description 04/10/2020 Ancillary Orders [facility] Pre-Registration [place] CALL TO MAKE APPOINTMENT ONLY [address] [place] [address] Michael Gómez MD [address] [place] [address] Prostate cancer (CMS/HCC); Increased prostate specific antigen (PSA) velocity; Back pain Social History Tobacco Use Types Packs/Day Years Used Date Smoking Tobacco: Never Assessed Sex and Gender Information Value Date Recorded Sex Assigned at Not on file Legal Sex Male 12:05 PM CDT Gender Identity Not on file Sexual Orientation Not on file documented as of this encounter Plan of Treatment Not on file documented as of this encounter Results * PET TUMOR AXUMIN ING W CT SKB MDTH (05/15/2020 3:27 PM CDT) Anatomical Region Laterality Modality Nuclear Medicine 05/15/2020 3:27 PM CDT Impressions 05/16/2020 9:53 PM CDT IMPRESSION: 1. ??Post surgical changes from prior prostatectomy. Nonspecific, increased radiotracer uptake along the posterior aspect of the bladder and more inferiorly along the anteroinferior prostatectomy bed. Local-regional recurrence is not excluded. 2. ??Intense radiotracer uptake throughout the spine , sacrum and pelvis , with more focal , intense areas of uptake, as described above. The findings are concerning for extensive bony metastatic disease . 3. ??Nonspecific, intense focal radiotracer uptake along the left anterior frontal region. Recommend contrast enhanced brain MRI to evaluate for an underlying lesion. 4. ??Enlarged thyroid gland, consider correlation with thyroid ultrasound. This laboratory has been accredited by the Intersocietal Commission for the Accreditation of Nuclear Medicine Laboratories (IAC Nuclear/PET). Narrative 05/16/2020 9:53 PM CDT Radionuclide PET Metabolic Tumor Imaging with CT Attenuation Correction and Anatomic Localization from Mid Thigh to Skull Base: Radiopharmaceutical: F-18-Axumin ?? Dose: 10.4 mCi right antecubital IV dose given 14:16 Reason for Consultation: ??Prostate cancer status post prostatectomy, increased PSA Comparisons: None. F-18 Axumin PET imaging was performed at 14:19 hrs approximately 3 minutes following intravenous infusion of the radiopharmaceutical agent using an integrated 16-slice PET/CT scanner. A noncontrast CT scan was performed for attenuation correction of PET data and for anatomic localization. No contrast was administered. Imaging was performed from the mid thigh to skull base levels with subsequent reconstruction of full trunk, orthogonal view slices in transverse, sagittal, and coronal projections which were reviewed along with dynamic multiimage planar and non attenuation corrected sagittal views. Blood glucose at the time of tracer injection was not measured with normal biodistribution of tracer. The quality of this examination is acceptable with regards to count density, processed images, data display and lack of important artifacts (including but not limited to motion and attenuation artifacts except as below). Head/Neck: Physiologic uptake is present within the pituitary glands, salivary glands and Waldeyer's ring. Nonspecific, focal radiotracer uptake along the left anterior frontal region. The thyroid gland is enlarged. Thorax: Physiologic uptake within the heart. No focal consolidation, pleural effusion or pneumothorax. There is dependent atelectasis in the lower lobes bilaterally. Calcified hilar and mediastinal nodes, likely related to prior granulomatous infection. The heart is enlarged. No evidence of pulmonary edema. Abdomen/Pelvis: Physiologic uptake is identified within the liver, spleen, pancreas, adrenal glands, kidneys, collecting system and bladder. There is also physiologic uptake within the bowel. No definite uptake within the prostatectomy bed. Small hypoattenuating foci arising from the kidneys may represent cysts. Small hiatal hernia. No bowel obstruction. Diverticulosis without evidence of diverticulitis. Bilateral inguinal hernias. Musculoskeletal: There is diffuse, heterogeneous bone marrow uptake. Focal, increased radiotracer uptake along the posterior left ninth rib and proximal right clavicle, and inferior left scapula. Focal uptake within the left T5 posterior elements. Mild L5 superior endplate compression deformity. Procedure Note Regina Blank MD - 05/16/2020 Radionuclide PET Metabolic Tumor Imaging with CT Attenuation Correction and Anatomic Localization from Mid Thigh to Skull Base: Radiopharmaceutical: F-18-Axumin Dose: 10.4 mCi right antecubital IV dose given 14:16 Reason for Consultation: Prostate cancer status post prostatectomy, increased PSA Comparisons: None. F-18 Axumin PET imaging was performed at 14:19 hrs approximately 3 minutes following intravenous infusion of the radiopharmaceutical agent using an integrated 16-slice PET/CT scanner. A noncontrast CT scan was performed for attenuation correction of PET data and for anatomic localization. No contrast was administered. Imaging was performed from the mid thigh to skull base levels with subsequent reconstruction of full trunk, orthogonal view slices in transverse, sagittal, and coronal projections which were reviewed along with dynamic multiimage planar and non attenuation corrected sagittal views. Blood glucose at the time of tracer injection was not measured with normal biodistribution of tracer. The quality of this examination is acceptable with regards to count density, processed images, data display and lack of important artifacts (including but not limited to motion and attenuation artifacts except as below). Head/Neck: Physiologic uptake is present within the pituitary glands, salivary glands and Waldeyer's ring. Nonspecific, focal radiotracer uptake along the left anterior frontal region. The thyroid gland is enlarged. Thorax: Physiologic uptake within the heart. No focal consolidation, pleural effusion or pneumothorax. There is dependent atelectasis in the lower lobes bilaterally. Calcified hilar and mediastinal nodes, likely related to prior granulomatous infection. The heart is enlarged. No evidence of pulmonary edema. Abdomen/Pelvis: Physiologic uptake is identified within the liver, spleen, pancreas, adrenal glands, kidneys, collecting system and bladder. There is also physiologic uptake within the bowel. No definite uptake within the prostatectomy bed. Small hypoattenuating foci arising from the kidneys may represent cysts. Small hiatal hernia. No bowel obstruction. Diverticulosis without evidence of diverticulitis. Bilateral inguinal hernias. Musculoskeletal: There is diffuse, heterogeneous bone marrow uptake. Focal, increased radiotracer uptake along the posterior left ninth rib and proximal right clavicle, and inferior left scapula. Focal uptake within the left T5 posterior elements. Mild L5 superior endplate compression deformity. IMPRESSION: 1. Post surgical changes from prior prostatectomy. Nonspecific, increased radiotracer uptake along the posterior aspect of the bladder and more inferiorly along the anteroinferior prostatectomy bed. Local-regional recurrence is not excluded. 2. Intense radiotracer uptake throughout the spine , sacrum and pelvis , with more focal , intense areas of uptake, as described above. The findings are concerning for extensive bony metastatic disease . 3. Nonspecific, intense focal radiotracer uptake along the left anterior frontal region. Recommend contrast enhanced brain MRI to evaluate for an underlying lesion. 4. Enlarged thyroid gland, consider correlation with thyroid ultrasound. This laboratory has been accredited by the Intersocietal Commission for the Accreditation of Nuclear Medicine Laboratories (IAC Nuclear/PET). us Michael Gómez MD PE ORDERABLES Final Result documented in this encounter Visit Diagnoses Diagnosis Prostate cancer (CMS/HCC) Malignant neoplasm of prostate Increased prostate specific antigen (PSA) velocity Elevated prostate specific antigen (PSA) Back pain Backache, unspecified Prostate cancer (CMS/HCC) Malignant neoplasm of prostate Increased prostate specific antigen (PSA) velocity Elevated prostate specific antigen (PSA) Back pain Backache, unspecified documented in this encounter Care Teams Boring Mill Operator Relationship Specialty Start Date End Date Michael Gómez MD [address] [place] [address] PCP - General Hematology and Oncology 04/17/20 documented as of this encounter
--- OUTSIDE RECORDS SUMMARY | 2025-01-09 13:27 | XMS_ITS | Clinical Summary ---
Author Organization [facility] Address [address] [place] [address] Phone Care Team Providers Care Child Care Education Coordinator Name Role Phone Michael Gómez MD Primary Care Provider Social History Tobacco Use Types Packs/Day Years Used Date Smoking Tobacco: Never Assessed Sex and Gender Information Value Date Recorded Sex Assigned at Not on file Legal Sex Male 12:05 PM CDT Gender Identity Not on file Sexual Orientation Not on file Plan of Treatment Health Maintenance Due Date Last Done Comments DTAP/TDAP/TD VACCINES (1 - Tdap) 12[birth year]13/1954 PNEUMOCOCCAL VACCINE 50+ YEARS (1 of 1 - PCV) 12/12/18 87 ZOSTER VACCINE (1 of 2) 1986 RSV VACCINE (60+ or ) (1 - 1-dose 75+ series) 12/13/2011 INFLUENZA VACCINE (#1) 2024 Insurance [id number] [place] [address] 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
--- OUTSIDE RECORDS SUMMARY | 2025-01-09 13:27 | XMS_ITS | Encounter Summary ---
Author Organization [facility] Address [address] [place] [address] Care Team Providers Care Heavy Equipment Rental Associate Name Role Phone Michael Gómez MD Primary Care Provider [phone] Encounter Details Date Type Department Care Team (Late st Contact Info) Description 04/06/2020 Ancillary Orders [facility] Pre-Registration [place] CALL TO MAKE APPOINTMENT ONLY [address] [place] [address] Michael Gómez MD [address] [place] [address] Social History Tobacco Use Types Packs/Day Years Used Date Smoking Tobacco: Never Assessed Sex and Gender Information Value Date Recorded Sex Assigned at Not on file Legal Sex Male 12:05 PM CDT Gender Identity Not on file Sexual Orientation Not on file documented as of this encounter Plan of Treatment Not on file documented as of this encounter Visit Diagnoses Not on filedocumented in this encounter Care Teams Heavy Equipment Rental Associate Relationship Specialty Start Date End Date Michael Gómez MD [address] [place] [address] PCP - General Hematology and Oncology 04/17/20 documented as of this encounter
--- OUTSIDE RECORDS SUMMARY | 2025-01-09 13:27 | XMS_ITS | Clinical Summary ---
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
--- NOTE | 2025-01-09 14:33 | PM.CONSULT ---
Providers/Reason For Consult Consulting Physician/Specialty*: Niyah Phillip MD Reason for Consult*: Right intertrochanteric hip fracture Requesting Physician: Dr. Jacki Montana Attending Physician: Shawn Werner MD Primary Care Provider: Basil Bravo MD History of Present Illness History of Present Illness Annika Montgomery is a 89 year old male who was in his usual state of health where he lives at home. This morning, the patient was getting dressed and he fell backwards landing onto his right hip. He developed inability to ambulate along with the severe pain. His spouse suspected a broken bone, so she called the hospice company, and they recommended he be evaluated at the emergency department. 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 Patient did have right total knee arthroplasty in July with Dr. Ramsey. Review of Systems Narrative: A complete review of systems was obtained and is negative except as stated in HPI. Const: Denies: fever(s), chills, body aches or change in appetite Eyes: Denies: photophobia ENMT: Denies: throat pain, enlarged tonsils or dental pain Card: Denies: chest pain Resp: Denies: dyspnea GI: Denies: abdominal pain, nausea, vomiting or diarrhea Musc: Reports: extremity pain; Denies: neck pain, back pain or joint warmth Skin/Breast: Denies: rash Neuro: Denies: headache(s) Psych: Denies: sleeping more Medications/Allergies Home Medications ?Medication ?Instructions ?Recorded ?Confirmed ?Last Taken ?Type lorazepam 0.5 mg tablet 0.5 mg PO DAILY anxiety 08/05/24 01/09/25 01/09/25 History meloxicam 7.5 mg tablet 7.5 mg PO DAILY #90 tabs 08/27/24 01/09/25 01/09/25 Rx amlodipine 10 mg tablet 10 mg PO DAILY blood pressure #90 09/16/24 01/09/25 01/09/25 Rx tabs insulin glargine 100 unit/mL 50 unit (0.5 mL) SUBCUT BEDTIME 11/24/24 01/09/25 01/08/25 Rx subcutaneous solution (Lantus Diabetic #50 mL U-100 Insulin) atropine 1 % eye drops 4 drp sublingual Q4H PRN 12/08/24 01/09/25 Unknown Rx secretions #5 mL bisacodyl 10 mg rectal suppository 10 mg IN DAILY PRN constipation #5 12/08/24 01/09/25 Unknown Rx ea hydroxyzine HCl 25 mg tablet 25 mg PO TID PRN Itching #5 tabs 12/08/24 01/09/25 01/09/25 Rx lorazepam 2 mg/mL oral concentrate 2 mg sublingual Q4H PRN 12/08/24 01/09/25 Unknown Rx Anxiety/Seizure #30 mL morphine concentrate 100 mg/5 mL 20 mg sublingual DIRECTED PRN 12/08/24 01/09/25 Unknown Rx (20 mg/mL) oral solution Pain/SOB 14 days #30 mL ondansetron 4 mg disintegrating 4 mg translingual Q4H PRN nausea 12/08/24 01/09/25 Unknown Rx tablet #5 tabs hydrocodone 10 mg-acetaminophen 1 tab PO TID PRN pain 15 days #45 12/16/24 01/09/25 Unknown Rx 325 mg tablet tabs zolpidem 5 mg tablet 5 mg PO .hs PRN insomnia #30 tabs 12/29/24 01/09/25 Unknown Rx amitriptyline 25 mg tablet 25 mg PO QPM 01/09/25 01/09/25 01/08/25 History Allergies Allergy/AdvReac Type Severity Reaction Status Date / Time celecoxib (From Celebrex) Allergy Mild ALGY-Swell Verified 12/06/24 08:20 Lip/Tongue/Throat pioglitazone (From Actos) Allergy Unknown Unknown Verified 12/06/24 08:20 sitagliptin (From Januvia) Allergy Unknown Unknown Verified 12/06/24 08:20 Penicillins Allergy ALGY-Anaphy Verified 12/06/24 08:20 laxis Sulfa (Sulfonamide Allergy ALGY-Rash Verified 12/06/24 08:20 Antibiotics) Current Medications Generic Name Dose Route Start Last Admin Trade Name Freq PRN Reason Stop Dose Admin Hydromorphone HCl 0.5 mg 01/09/25 10:53 01/09/25 13:21 Hydromorphone 0.5 Mg/0.5 Ml Inj IVP 0.5 mg Q2H PRN Administration SEVERE PAIN Insulin Human Lispro 0 unit 01/09/25 12:00 01/09/25 11:50 Insulin Lispro 100 Unit/1 Ml SUBCUT 12 unit WM&BEDTIME DARREL Administration Protocol Ondansetron HCl 4 mg 01/09/25 10:53 01/09/25 11:14 Ondansetron 2 Mg/Ml Sdv 2 Ml IVP 4 mg Q8H PRN Administration vomiting, or N/V if npo PFSH Acute PFSH: Medical History Anxiety CKD (chronic kidney disease) stage 3, GFR 30-59 ml/min Cr 1.5 05/14/2024 GFR 44 Increase in serum creatinine from prior measurement Recurrent UTI Gross hematuria 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, bilateral History of worms GERD (gastroesophageal reflux disease) Insomnia Sebaceous cyst 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 T12 compression fracture HTN (hypertension) Diabetes Surgical History History of bilateral cataract extraction History of total knee replacement left knee Hx of arthroscopy of left knee Hx of left inguinal hernia repair History of colon resection Hx of radical prostatectomy Family History Father , AT AGE 81 CVA Stroke Social History Smoking and tobacco/nicotine status: never used tobacco/nicotine Alcohol intake: never Substance/Drug Use: never Adopted: No Caregiver/support person: No Lives independently: No Household members: spouse Marital status: Current occupational status: retired Dietary Habits: Caffeine: Yes Caffeine intake frequency: carbonated beverages Vitals/I&O/Wt Last Vital Signs Temp 97.0 F L 01/09/25 14:29 Pulse 103 H 01/09/25 14:29 Resp 22 H 01/09/25 14:29 BP 139/88 01/09/25 14:29 Pulse Ox 97 01/09/25 14:29 O2 Del Method Nasal Cannula 01/09/25 14:29 O2 Flow Rate 2 01/09/25 14:29 01/08/25 01/09/25 01/09/25 22:59 06:59 14:59 Intake Total 150 / 150 Balance 150 / 150 Weight last 48 hrs Weight 196 lb Physical Exam Const: COMMON NORMALS: no acute distress, average body habitus, patient oriented x3 and alert GENERAL APPEARANCE: cooperative and comfortable ORIENTATION/CONSCIOUSNESS: Yes awake HENMT: COMMON NORMALS: normocephalic and atraumatic HEAD & SCALP: normocephalic and atraumatic Eye: GENERAL EYE: appearance normal, both eyes and all related structures Chest: COMMONS NORMALS: normal inspection of the chest Resp: COMMON NORMALS: normal respiratory effort EFFORT & INSPECTION: Yes able to speak in complete sentences and Yes symmetric chest movement Extremity: RIGHT LOWER EXTREMITY: Yes hip joint Right hip: Yes inspection (No significant ecchymosis), Yes palpation (Not particularly tender.), Yes ROM (Not evaluated secondary to fracture) and Yes neurovascular exam (Intact distally) Neuro: COMMON NORMALS: patient oriented x3 SENSORIUM/ORIENTATION: Yes alert Psych: COMMON NORMALS: mental status grossly normal APPEARANCE: Yes grossly normal ATTITUDE: Yes calm and Yes engaged ATTENTION/CONCENTRATION: Yes attention grossly intact Skin: COMMON NORMALS: no rashes or lesions noted GENERAL SKIN EXAM: no rashes or lesions noted Data 01/09/25 10:06 01/09/25 10:06 Xray Ortho: My impression: I have personally interpreted the AP and lateral of the patient's right hip. There is a significantly angulated intertrochanteric hip fracture. On the lateral, there is some displacement as well. There is no evidence of extension into the proximal femur, there is, however, scalloping down the femur. For this reason, I have ordered AP and lateral of the patient's right femur. Additional imaging of the right femur demonstrated no evidence of metastatic disease. There is some scalloping proximally, but this has been present since 2019. A&P Assessment and plan (1) Closed intertrochanteric fracture of right hip: Patient was admitted through the emergency department today following a fall at home at which point he fractured his right hip. He did have a mechanical fall when he tripped over some clothing. He denies any kind of dizziness or other reason for his fall. Review of the x-rays demonstrate an angulated intertrochanteric hip fracture with no evidence of extension into the subtrochanteric area. Further studies were ordered in the form of an AP and lateral of the patient's complete right femur. There is some scalloping proximally, but this has been present since 2019. There does not appear to be any lesion. There is a total knee in position which appears to have no current complications. Secondary to the patient's history of metastatic bone disease from his prostate cancer, I have discussed with the patient and his family proceeding with a long trochanteric nail rather than a short trochanteric nail. They are in agreement. Qualifiers: Encounter type: initial encounter Fracture alignment: displaced Qualified Code(s): S72.141A - Displaced intertrochanteric fracture of right femur, initial encounter for closed fracture (2) Prostate cancer metastatic to bone: Metastasis to bone is documented into the spine, but, we will treat this with a longer intramedullary nail to provide support and prophylaxis. 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
--- NOTE | 2025-01-09 14:37 | XRR_ITS ---
PROCEDURE INFORMATION: Exam: XR Right Femur Exam date and time: 01/09/2025 2:51 PM Age: 89 years old Clinical indication: Injury or trauma; Fall; Blunt trauma; Thigh or upper leg; Right; Additional info: Evaluate for pathologic lesion TECHNIQUE: Imaging protocol: Radiologic exam of the right femur. Views: 2 views. COMPARISON: [place] bone scan whole body* [id number] 08/15/2020 9:35 AM FINDINGS: Bones/joints: Fracture through the distal femoral neck with foreshortening. No evidence of underlying lesion. Soft tissues: Unremarkable. XR/XR femur RT min 2V* [id number] IMPRESSION: Right hip fracture with foreshortening. No evidence of underlying lesion.
[2025-01-09] MEDS: gabapentin 300 mg Capsule PO (14:52)
--- NOTE | 2025-01-09 15:25 | ANES.PREANE2 ---
Pre-Anesthetic Assessment Height/Weight: Height 1.8 m Weight 88.904 kg Temp Pulse Resp BP Pulse Ox O2 Del Method O2 Flow Rate 97.0 F L 103 H 22 H 139/88 97 Nasal Cannula 2 01/09/25 14:29 01/09/25 14:29 01/09/25 14:29 01/09/25 14:29 01/09/25 14:29 01/09/25 14:29 01/09/25 14:29 Preop Diagnosis: Right intertrochanteric hip fracture Operation Date: 01/09/25 16:00 Proposed Procedures p Trochanteric Femoral Nail(Right) - Niyah Phillip MD Social No alcohol and No tobacco Exam alert, oriented x 3, clear to auscultation bilaterally and regular rate & rhythm Airway Submandibular: within normal limits Cervical ROM: Other (limited ) Mallampati: Class II CV/HEM Hypertension Urinary Tract Infection Metastatic prostate CA GI Gastroesophageal Reflux Disease (Controlled ) Metabolic Diabetes Mellitus Musc/skel Lower Back Pain and Osteoarthritis/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 ) Anesthetic Plan ASA status: 3 Anesthesia: General (Defer SAB for mets to Lower Spine area as captured by x-ray ) Medications/Allergies Home Medications ?Medication ?Instructions ?Recorded ?Confirmed ?Last Taken ?Type lorazepam 0.5 mg tablet 0.5 mg PO DAILY anxiety 08/05/24 01/09/25 01/09/25 History meloxicam 7.5 mg tablet 7.5 mg PO DAILY #90 tabs 08/27/24 01/09/25 01/09/25 Rx amlodipine 10 mg tablet 10 mg PO DAILY blood pressure #90 09/16/24 01/09/25 01/09/25 Rx tabs insulin glargine 100 unit/mL 50 unit (0.5 mL) SUBCUT BEDTIME 11/24/24 01/09/25 01/08/25 Rx subcutaneous solution (Lantus Diabetic #50 mL U-100 Insulin) atropine 1 % eye drops 4 drp sublingual Q4H PRN 12/08/24 01/09/25 Unknown Rx secretions #5 mL bisacodyl 10 mg rectal suppository 10 mg MT DAILY PRN constipation #5 12/08/24 01/09/25 Unknown Rx ea hydroxyzine HCl 25 mg tablet 25 mg PO TID PRN Itching #5 tabs 12/08/24 01/09/25 01/09/25 Rx lorazepam 2 mg/mL oral concentrate 2 mg sublingual Q4H PRN 12/08/24 01/09/25 Unknown Rx Anxiety/Seizure #30 mL morphine concentrate 100 mg/5 mL 20 mg sublingual DIRECTED PRN 12/08/24 01/09/25 Unknown Rx (20 mg/mL) oral solution Pain/SOB 14 days #30 mL ondansetron 4 mg disintegrating 4 mg translingual Q4H PRN nausea 12/08/24 01/09/25 Unknown Rx tablet #5 tabs hydrocodone 10 mg-acetaminophen 1 tab PO TID PRN pain 15 days #45 12/16/24 01/09/25 Unknown Rx 325 mg tablet tabs zolpidem 5 mg tablet 5 mg PO .hs PRN insomnia #30 tabs 12/29/24 01/09/25 Unknown Rx amitriptyline 25 mg tablet 25 mg PO QPM 01/09/25 01/09/25 01/08/25 History Allergies Allergy/AdvReac Type Severity Reaction Status Date / Time celecoxib (From Celebrex) Allergy Mild ALGY-Swell Verified 12/06/24 08:20 Lip/Tongue/Throat pioglitazone (From Actos) Allergy Unknown Unknown Verified 12/06/24 08:20 sitagliptin (From Januvia) Allergy Unknown Unknown Verified 12/06/24 08:20 Penicillins Allergy ALGY-Anaphy Verified 12/06/24 08:20 laxis Sulfa (Sulfonamide Allergy ALGY-Rash Verified 12/06/24 08:20 Antibiotics) Current Medications Generic Name Dose Route Start Last Admin Trade Name Freq PRN Reason Stop Dose Admin Hydromorphone HCl 0.5 mg 01/09/25 10:53 01/09/25 13:21 Hydromorphone 0.5 Mg/0.5 Ml Inj IVP 0.5 mg Q2H PRN Administration SEVERE PAIN Insulin Human Lispro 0 unit 01/09/25 12:00 01/09/25 11:50 Insulin Lispro 100 Unit/1 Ml SUBCUT 12 unit WM&BEDTIME DARREL Administration Protocol Ondansetron HCl 4 mg 01/09/25 10:53 01/09/25 11:14 Ondansetron 2 Mg/Ml Sdv 2 Ml IVP 4 mg Q8H PRN Administration vomiting, or N/V if npo PFSH Anesthesia Medical History Anxiety CKD (chronic kidney disease) stage 3, GFR 30-59 ml/min Cr 1.5 05/14/2024 GFR 44 Increase in serum creatinine from prior measurement Recurrent UTI Gross hematuria 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, bilateral History of worms GERD (gastroesophageal reflux disease) Insomnia Sebaceous cyst 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 T12 compression fracture HTN (hypertension) Diabetes Surgical History History of bilateral cataract extraction History of total knee replacement left knee Hx of arthroscopy of left knee Hx of left inguinal hernia repair History of colon resection Hx of radical prostatectomy Family History Father , AT AGE 81 CVA Stroke Social History Smoking and tobacco/nicotine status: never used tobacco/nicotine Alcohol intake: never Substance/Drug Use: never Adopted: No Caregiver/support person: No Lives independently: No Household members: spouse Marital status: Current occupational status: retired Data Anesthesia 01/09/25 10:06 01/09/25 10:06 Short CBC 01/09/25 Range/Units 10:06 WBC 15.08 H (3.29-11.43) 10^3/uL Hgb 13.40 (11.27-16.99) g/dL Hct 41.0 (37-53) % MCV 82.7 (82-101) fl Plt Count 259 (157-399) 10^3/cmm Neut % (Auto) 81.0 % Neut # (Auto) 12.22 H (1.8-7.7) 10^3/uL BMP 01/09/25 10:06 Sodium 133 L Potassium 3.9 Chloride 96 L Carbon Dioxide 22 BUN 18 Creatinine 1.2 Glucose 316 H Calcium 9.4 Liver Function 01/09/25 Range/Units 10:06 Total Bilirubin 0.5 (0.15-1.2) mg/dL AST 17 (0-40) U/L ALT 7 (0-41) U/L Alkaline Phosphatase 231 H (40-130) U/L Albumin 3.9 (3.5-5.2) g/dL Urine 01/09/25 Range/Units 11:00 Urine Color Dark yellow A (Yellow) Urine Appearance Turbid A (CLEAR) Urine pH 6 (5-7) Ur Specific [place] 1.015 (1.005-1.030) Urine Protein 1+ H (Negative) Urine Glucose (UA) 4+ H (Normal) Urine Ketones Negative (Negative) Urine Nitrate Negative (Negative) Urine Bilirubin Neg (Negative) Ur Leukocyte Esterase 2+ H (Negative) Urine RBC >100 H (0-2) /hpf Urine WBC >100 H (0-5) /hpf Coags 01/09/25 10:06 PT 13.00 INR 0.92 Cardiac Studies: No Data to Display
[2025-01-09] MEDS: VANCOMYCIN ADD-Vantage 1,000 MG in 0.9% NaCl ADD-Vantage 250 ML 250 MG IV (15:49)
--- NOTE | 2025-01-09 15:51 | XR_ITS ---
WS: [id number] C-ARM RADIOGRAPHS RIGHT FEMUR; 7 IMAGES HISTORY: RT LONG TFN; OR PICS COMPARISON: 01/09/2025 radiographs Long intramedullary jennifer and pin stabilizing the radial neck fracture. Fracture appears in good position and alignment. XR/XR femur RT min 2V* [id number] IMPRESSION: Intraoperative pinning involving RIGHT femoral neck fracture. Fracture in good position and alignment on the imaging submitted.
[2025-01-09] MEDS: BUPivacaine 0.5% INJ 30 mL INJECTION (16:25)
[2025-01-09] MEDS: VANCOMYCIN ADD-Vantage 1,000 MG VIAL 1000 MG IRRIGATION (16:26)
--- NOTE | 2025-01-09 17:32 | PM.OP ---
Operative Report Date of procedure: January 09, 2025 Pre-op diagnosis: Right intertrochanteric hip fracture, displaced with history of metastatic prostate cancer to bone Post-op diagnosis: Right intertrochanteric hip fracture, displaced with history of metastatic prostate cancer to bone Post-op findings: Thickened cortices with reamings sent to pathology Procedure done: Open reduction internal fixation right intertrochanteric hip fracture with long trochanteric nail as prophylactic nailing of femoral shaft Implants: Katie long gamma 3 trochanteric nail size 13 mm x 380 mm x 125 degrees with a proximal lag screw size 10.5 mm x 105 mm Specimens removed/disposition: Femoral reamings proximally and from the canal midshaft sent to pathology Pathology: As above Surgeon: Niyah Phillip MD Human Geography Instructor: None Anesthesia: General (Per LMA, ASA 3) Estimated blood loss (mL): 150 IV fluids (mL): 600 Urine output (mL): 0 (No [place]) Complications: None Findings: Thickened femoral cortices, reamings sent to pathology from proximal reaming and also from midshaft Condition: stable Disposition: PACU (Then admit to floor for postoperative rehabilitation and pain management) Brief History: This 89-year-old gentleman presented today after a fall at home. He has known prostate cancer with mets to bone. The known mets are within the patient's spine. He fell onto his right hip and suffered a right hip fracture. This is an intertrochanteric fracture with angulation and displacement. Patient was admitted and plans were made for surgical intervention the day of admission. The procedure was done quickly given the patient's increased risk of DVT due to his history of cancer. He is on hospice. X-rays were reviewed and demonstrated a displaced angulated right intertrochanteric hip fracture. No metastatic lesions were visualized. Procedure: Patient is brought to the operating theater. After undergoing adequate general anesthesia per LMA, ASA 3, the patient was transferred to the fracture table, positioned on the table and fluoroscopic guidance obtained throughout the surgical procedure. Prior to the commencement of the surgical procedure, a surgical pause was performed. At the time of the surgical pause, we confirmed the site and side of surgery as well as preoperative surgical markings and appropriate and timely administration of IV antibiotics, vancomycin 1000 mg. Availability of equipment was also confirmed. Fluoroscopy was used to confirm the fracture was appropriately reduced in both AP and lateral planes. Preoperatively, discussion was had with the patient and his family that given his history of metastatic prostate cancer to the bones, I wish to place a long nail as prophylactic nailing for the right femur. The nail was to be a gamma nail to address the intertrochanteric hip fracture. Plans were for biopsy to be obtained. An incision was then made slightly above the greater trochanter to allow access to the greater trochanter. An awl was used to enter the greater trochanter and a guidewire was subsequently placed. Once the guidewire was confirmed to be in appropriate position in AP and lateral planes, reaming was accomplished over this to allow for the proximal diameter of the nail. Reamings were taken from this and sent as a first pathologic specimen. The short guidewire was removed, and a long guidewire was placed to the knee. Positioning of this guidewire was evaluated in AP and lateral planes with fluoroscopy. With the guidewire in appropriate position, reaming was accomplished. We wanted to get good fit of the femoral canal to serve the purpose of prophylaxis. For this reason, we reamed to a size 15 obtaining reamings from the midshaft to send to pathology as a second specimen. Attempt was then made to pass the femoral nail, but even with reaming to over the size 13 mm nail, we were unable to pass the long nail. We reamed to a size 15-1/2 and we were then able to pass the long trochanteric nail. Measurement was accomplished of the guidewire in the canal in appropriate position, and the 380 mm x 125 degree trochanteric nail size 13 mm diameter was chosen. Following this, the jig system was used for the proximal nail into the femoral head to address the intertrochanteric fracture. This was a size is 10.5 mm x 105 mm lag screw. This was put into position and subsequently traction was released from the femur and we were able to obtain excellent compression at the fracture site. The set screw was then placed in position, tightened completely, and subsequently backed off one-quarter turn. The construct was left in position and attention was directed to closure. We confirmed appropriate placement of the components, and we removed the jigging system. Attention was then directed to closure. The hip was copiously irrigated with normal saline with antibiotics. Following this it was dried and closed. Tensor fascia wilver was closed proximally with 0 Vicryl in an interrupted fashion. Subcutaneous tissues were closed with 2-0 Monocryl, and the skin was closed with a continuous 4-0 Monocryl subcuticular stitch. This was followed by Dermabond and Steri-Strips with an OpSite placed as a dressing.. The patient was removed from the fracture table and returned to recovery in satisfactory condition. The patient will be discharged to the floor for postoperative rehabilitation and pain management. Specimens are as above. 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
--- NOTE | 2025-01-09 18:20 | PC.NURSE ---
1811 - pt taken to room 270 via bed - accepted onto floor per Danial RN - BP 155/81 - 023l NC 93% - pulse 85 - temp 97.7
[2025-01-09 18:43] LABS: Glucose Point of Care 277 mg/dL (70-110)
[2025-01-09] MEDS: amitriptyline 25 mg Tablet PO (19:02)
[2025-01-09] MEDS: HYDROcodone-acetaminophen 10-325 mg Tablet 1 TAB PO (19:07)
[2025-01-09] MEDS: sennosides 8.6 mg Tablet 17.2 MG PO (21:20)
[2025-01-09] MEDS: insulin glargine 100 units/1 mL 40 UNIT SUBCUT (21:21)
[2025-01-09 21:25] LABS: Glucose Point of Care 283 mg/dL (70-110)
[2025-01-09] MEDS: dextrose 5%-sod chloride 0.45% 1,000 ML 75 ML IV (23:33)
[2025-01-10 04:00] VITALS: BP 103/66; PULSE 78; RESP 16; TEMP 36.3; O2SAT 94
[2025-01-10 04:40] LABS: Basophils % 0.2 %; Hematocrit 33.8 % (37-53); Lymphocytes # 1.6 10^3/uL (0.8-4.8); Lymphocytes % 14.2 %; Mean Corpuscular HGB Conc 31.4 g/dL (30-55); Mean Corpuscular Hemoglobin 27.3 pg (27-33); Mean Corpuscular Volume 87.1 fl (82-101); Mean Platelet Volume 10.1 fL (7.4-10.4); Monocytes # 0.7 10^3/uL (0.2-0.9); Monocytes % 6.2 %; Neutrophils # 8.73 10^3/uL (1.8-7.7); Nucleated Red Blood Cells % 0 %; Platelet Count 236 10^3/cmm (157-399); Red Blood Count 3.88 10^6/uL (3.85-5.65); White Blood Count 11.04 10^3/uL (3.29-11.43)
[2025-01-10 05:03] LABS: Anion Gap 14.6 (5-19); Blood Urea Nitrogen 24 mg/dL (8-23); Carbon Dioxide 21 mmol/L (22-29); Chloride 102 mmol/L (98-107); Creatinine Clr Calc Pharmacy 39.2687; Glucose 199 mg/dL (65-115); Osmolality Calculated 286 mOsm/kg (285-295); Potassium 4.6 mmol/L (3.5-5.1); Sodium 133 mmol/L (136-145)
[2025-01-10 06:17] LABS: Glucose Point of Care 279 mg/dL (70-110)
[2025-01-10 07:55] VITALS: BP 146/78; PULSE 86; RESP 17; TEMP 36.4; O2SAT 91
[2025-01-10] MEDS: apixaban 5 mg Tablet 2.5 MG PO ×2 (08:07→17:17)
[2025-01-10] MEDS: insulin lispro 100 unit/1 mL SUBCUT ×4 (08:07→21:21)
[2025-01-10] MEDS: LORazepam 0.5 mg Tablet PO (08:07)
[2025-01-10] MEDS: amlodipine 10 mg Tablet PO (08:07)
[2025-01-10] MEDS: levofloxacin-dextrose 5 % 750 MG/150 ML PREMIX 100 MG IV (08:08)
[2025-01-10] MEDS: HYDROcodone-acetaminophen 10-325 mg Tablet 1 TAB PO (08:10)
[2025-01-10 11:06] LABS: Glucose Point of Care 343 mg/dL (70-110)
--- NOTE | 2025-01-10 11:08 | PC.CHAP ---
Pastoral Care Encounter/Spiritual Assessment Type of Contact [] Declined public health veterinarian visit [] Patient/Family/Request visit [] Outpatient visit [] Follow-up visit [] Physician referral [] Code/Alert [x] Routine visit [] Staff referral [] Actively dying [] Patient sleeping [x] Family support [] [] Out of room [] Palliative care [] [] Receiving care in room [] Pre-surgical visit [] Trauma [] Long length of stay [] ICU visit [] Other: Relational/Emotional Strength [] Patient feels connected with others/family/visitors/staff [] Distress [] Loneliness/isolation [] Abandonment Spirituality of Patient [x] Person of Susy [x] Attends Orthodoxy of their Susy [x] Believes in Prayer [] Reads Bible or Quaker materials [] There are Spiritual issues to be addressed Roller Embosser Interventions [x] Prayer [x] Active listening [] Non-anxious presence [] Spiritual/emotional support [] Crisis/trauma care [] Spiritual counseling [] Bereavement support [] Provided bereavement packet [x] Provided Bible/devotional materials [] Provided toy/stuffed animal, coloring book to patient or family member [] Provided Communion [] Anointing/[place] [] Salvation [x] Completed spiritual assessment [] Other: Impact on Illness or Injury [] Angry [] Fearful [] Anxious [] Often cries [] Exhaustion [] Unable to work [] Unable to attend buddhism [] Unable to walk/stand [] Unable to read [] Unable to drive [] Unable to eat/drink [] Unable to sleep [] Unable to be with family [] Patient intubated [] Other: Summary Time spent with patient 30 min
[2025-01-10 11:11] VITALS: BP 106/63; PULSE 90; RESP 16; TEMP 36.4; O2SAT 93
--- NOTE | 2025-01-10 11:18 | P.PN_ITS ---
Subjective 2 Subjective: Patient reports pain is well-controlled at rest. Has not been out of bed yet. Denies bowel movement. Reports he slept okay. Denies other complaints. Family bedside. Vitals/I&O/Wt Last Vital Signs Temp 97.6 F 01/10/25 11:11 Pulse 90 01/10/25 11:11 Resp 16 01/10/25 11:11 BP 106/63 01/10/25 11:11 Pulse Ox 93 01/10/25 11:11 O2 Del Method Nasal Cannula 01/10/25 11:11 O2 Flow Rate 3 01/09/25 18:04 01/09/25 01/10/25 01/10/25 22:59 06:59 14:59 Intake Total 300 / 450 150 / 150 Output Total 50 / 50 Balance 250 / 400 150 / 150 Weight last 48 hrs Weight 90.945 kg Weight 88.904 kg Weight 88.904 kg Physical Exam 2 Narrative: General: Patient is awake and alert. Pleasant. In bed. Head: Normocephalic. Atraumatic. EOM intact. Hard of hearing. Neck: No JVD. Cardiovascular: RRR. No gallops. No murmurs. Lungs: Clear to auscultation, no use of accessory muscles, no crackles or wheezes. Skin: No jaundice. No rashes. Abdomen: Normal bowel sounds, abdomen soft and nontender. Extremities: No cyanosis or clubbing. Musculoskeletal: No swollen or erythematous joints. Neurological: Moves all 4 extremities. No myoclonus. Data 01/10/25 04:15 01/10/25 04:15 Micro: Microbiology 01/09/25 11:00 Urine Culture - Preliminary Urine,Clean Catch A&P Assessment and plan (1) Hip fracture, right: Right-sided hip fracture secondary to mechanical fall possibly underlying prostate cancer with bone mets Status post surgery 01/09 Multimodal pain control Continue bowel regiment DVT ppx Therapy evaluation (2) UTI (urinary tract infection): Follow Ux Continue levofloxacin (multiple allergies - PCN, sulfa) (3) Prostate cancer metastatic to bone: Continue home meds (4) Anxiety: Continue home Ativan (5) HTN (hypertension): Continue Norvasc Qualifiers: Hypertension type: primary hypertension Qualified Code(s): I10 - Essential (primary) hypertension (6) Diabetes: 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 Continue Lantus at reduced dose Sliding scale correction Qualifiers: Diabetes mellitus type: type 2 Diabetes mellitus medical terminologist insulin use: with medical terminologist use Diabetes mellitus complication status: with circulatory complication Diabetes mellitus complication detail: with other circulatory complications Qualified Code(s): E11.59 - Type 2 diabetes mellitus with other circulatory complications; Z79.4 - predatory animal exterminator (current) use of insulin (7) CKD (chronic kidney disease) stage 3, GFR 30-59 ml/min: Monitor renal function Renally dose medications Qualifiers: Chronic kidney disease stage 3 subtype: stage 3a (GFR 45-59) Qualified Code(s): N18.31 - Chronic kidney disease, stage 3a Plan DVT prophylaxis: Apixaban CODE STATUS: DNR PDMP PDMP Reviewed: Not Reviewed Attestations 2 Medical Necessity Statement*: Pt requires ongoing hospitalization for IV abx, therapy, and pain control. Coding Level of Care Code Acute Code for Chg Fwd Diagnoses Hip fracture, right S72.001A UTI (urinary tract infection) N39.0 Prostate cancer metastatic to bone C61; C79.51 Anxiety F41.9 Primary hypertension I10 Hypertension type: primary hypertension Type 2 diabetes mellitus with other circulatory complication, with long-term current use of insulin E11.59; Z79.4 Diabetes mellitus type: type 2 Diabetes mellitus medical terminologist insulin use: with medical terminologist use Diabetes mellitus complication status: with circulatory complication Diabetes mellitus complication detail: with other circulatory complications Stage 3a chronic kidney disease N18.31 Chronic kidney disease stage 3 subtype: stage 3a (GFR 45-59)
--- NOTE | 2025-01-10 13:36 | P.PN_ITS ---
Subjective 2 Subjective: Patient reports pain is well-controlled at rest. When I saw him, he was up in the room walking and doing very well. He did complain of some pain with ambulation. Medications: Reviewed: Yes Vitals/I&O/Wt Last Vital Signs Temp 97.6 F 01/10/25 11:11 Pulse 90 01/10/25 11:11 Resp 16 01/10/25 11:11 BP 106/63 01/10/25 11:11 Pulse Ox 93 01/10/25 11:11 O2 Del Method Nasal Cannula 01/10/25 11:11 O2 Flow Rate 3 01/09/25 18:04 01/09/25 01/10/25 01/10/25 22:59 06:59 14:59 Intake Total 300 / 450 390 / 390 Output Total 50 / 50 Balance 250 / 400 390 / 390 Weight last 48 hrs Weight 200 lb 8 oz Weight 196 lb Weight 196 lb Physical Exam 2 Const: COMMON NORMALS: no acute distress, average body habitus, patient oriented x3 and alert GENERAL APPEARANCE: cooperative and comfortable O RIENTATION/CONSCIOUSNESS: Yes awake HENMT: COMMON NORMALS: normocephalic and atraumatic HEAD & SCALP: n ormocephalic and atraumatic Eye: GENERAL EYE: appearance normal, both eyes and all related structures Chest: COMMONS NORMALS: normal inspection of the chest Resp: COMMON NORMALS: normal respiratory effort EFFORT & INSPECTION: Yes able to speak in complete sentences and Yes symmetric chest movement Extremity: RIGHT LOWER EXTREMITY: Yes hip joint (No significant ecchymosis) Right hip: Yes inspection (Upper dressing is peeling up, this will be changed), Yes ROM (Not evaluated) and Yes neurovascular exam (Intact distally) Neuro: COMMON NORMALS: patient oriented x3 SENSORIUM/ORIENTATION: Yes alert Psych: COMMON NORMALS: mental status grossly normal APPEARANCE: Yes grossly normal ATTITUDE: Yes calm and Yes engaged ATTENTION/CONCENTRATION: Yes attention grossly intact Skin: COMMON NORMALS: no rashes or lesions noted GENERAL SKIN EXAM: no rashes or lesions noted Data 01/10/25 04:15 01/10/25 04:15 Micro: Microbiology 01/09/25 11:00 Urine Culture - Preliminary Urine,Clean Catch A&P Assessment and plan (1) Closed intertrochanteric fracture of right hip: Patient was admitted through the emergency department following a fall at home at which point he fractured his right hip. He did have a mechanical fall when he tripped over some clothing. He denies any kind of dizziness or other reason for his fall. Review of the x-rays demonstrated an angulated intertrochanteric hip fracture with no evidence of extension into the subtrochanteric area. Further studies were ordered in the form of an AP and lateral of the patient's complete right femur. There is some scalloping proximally, but this has been present since 2019. Decision was made to place a long trochanteric nail preventatively and prophylactically nail the patient's femur. This was a gamma nail to address the intertrochanteric hip fracture. Qualifiers: Encounter type: initial encounter Fracture alignment: displaced Q ualified Code(s): S72.141A - Displaced intertrochanteric fracture of right femur, initial encounter for closed fracture (2) Prostate cancer metastatic to bone: Metastasis to bone is documented into the spine, but, we will treat this with a longer intramedullary nail to provide support and prophylaxis. 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
[2025-01-10] MEDS: dextrose 5%-sod chloride 0.45% 1,000 ML 75 ML IV (13:41)
[2025-01-10] MEDS: VANCOMYCIN ADD-Vantage 1,000 MG in 0.9% NaCl ADD-Vantage 250 ML 250 MG IV (15:54)
[2025-01-10 15:59] VITALS: BP 117/68; PULSE 94; RESP 17; TEMP 36.7; O2SAT 92
[2025-01-10 16:27] LABS: Glucose Point of Care 198 mg/dL (70-110)
[2025-01-10] MEDS: amitriptyline 25 mg Tablet PO (17:17)
[2025-01-10 20:00] VITALS: BP 127/85; PULSE 111; RESP 17; TEMP 36.9; O2SAT 90
[2025-01-10 20:50] LABS: Glucose Point of Care 420 mg/dL (70-110)
[2025-01-10] MEDS: insulin glargine 100 units/1 mL 50 UNIT SUBCUT (21:21)
[2025-01-11] VITALS (7 sets, daily range): BP systolic 116–158; BP diastolic 59–78; PULSE 77–100; RESP 16–18; TEMP 36.7–37.3; O2SAT 91–95
[2025-01-11] MEDS: HYDROcodone-acetaminophen 10-325 mg Tablet 1 TAB PO ×2 (02:50→11:09)
[2025-01-11] MEDS: oxyCODONE 5 mg IR Tab/Cap PO ×2 (04:02→13:54)
[2025-01-11] MEDS: dextrose 5%-sod chloride 0.45% 1,000 ML 75 ML IV (04:03)
[2025-01-11 06:32] LABS: Glucose Point of Care 284 mg/dL (70-110)
[2025-01-11] MEDS: amlodipine 10 mg Tablet PO (07:36)
[2025-01-11] MEDS: LORazepam 0.5 mg Tablet PO (07:36)
[2025-01-11] MEDS: apixaban 5 mg Tablet 2.5 MG PO (07:37)
[2025-01-11] MEDS: insulin lispro 100 unit/1 mL SUBCUT ×2 (07:37→12:00)
[2025-01-11 11:31] LABS: Glucose Point of Care 360 mg/dL (70-110)
--- NOTE | 2025-01-11 13:16 | P.DS_ITS ---
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 Patient reports this morning he was getting dressed when he fell backwards landing on his right hip. He states at that time he developed severe right hip pain. Spouse suspected a broken bone so she called hospice and they recommended he be evaluated if there is concern for broken bone. Patient seen evaluated in the emergency department. Currently rates his pain 5 out of 10. Movement exacerbates the pain. Analgesic received prior to my evaluation did help the pain some. He does note that he has chronic pain secondary to metastatic prostate cancer. He is on hospice care for pain control. His spouse and son are bedside and very supportive. Patient denies prior adverse events to anesthesia. He notes that he fairly recently underwent right total knee replacement in July with Dr. Ramsey. In emergency department, plain films shows right sided broken hip per my read. Radiology read is pending. Hospital Course Hospital Course Right hip fracture s/p fixation, Open reduction internal fixation right intertrochanteric hip fracture with long trochanteric nail as prophylactic nailing of femoral shaft. He is doing well, pain controlled. will discharge him home with hospice. Physical Exam Narrative: General: Patient is awake and alert. Pleasant. In bed. Head: Normocephalic. Atraumatic. EOM intact. Hard of hearing. Neck: No JVD. Cardiovascular: RRR. No gallops. No murmurs. Lungs: Clear to auscultation, no use of accessory muscles, no crackles or wheezes. Skin: No jaundice. No rashes. Abdomen: Normal bowel sounds, abdomen soft and nontender. Extremities: No cyanosis or clubbing. Musculoskeletal: No swollen or erythematous joints. Neurological: Moves all 4 extremities. No myoclonus. Discharge Data Studies Completed and Pending Completed Studies During Hospitalization Category Date Time Status CXRP [XR chest 1V portable [id number]] Stat Exams 01/09/25 10:00 Completed XR femur RT min 2V* [id number] Routine Exams 01/09/25 14:37 Completed XR femur RT min 2V* [id number] Routine Exams 01/09/25 15:51 Completed XR hip RT 2-3V wo/w pel* [id number] Stat Exams 01/09/25 09:59 Completed Pending at discharge Category Date Time Status Pathology: Surgical [PTH] Routine Pth 01/09/25 17:14 Received Radiology Impressions Hip/Pelvis X-Ray 01/09/25 09:59 IMPRESSION: Femoral neck fracture. Chest X-Ray 01/09/25 10:00 IMPRESSION: 1. No acute pulmonary finding. 2. Left basilar linear density. Finding could represent scarring or atelectasis. Femur X-Ray 01/09/25 15:51 IMPRESSION: Intraoperative pinning involving RIGHT femoral neck fracture. Fracture in good position and alignment on the imaging submitted. Laboratory Results WBC 11.04 10^3/uL (3.29-11.43) 01/10/25 04:15 RBC 3.88 10^6/uL (3.85-5.65) 01/10/25 04:15 Hgb 10.60 g/dL (11.27-16.99) L 01/10/25 04:15 Hct 33.8 % (37-53) L 01/10/25 04:15 MCV 87.1 fl (82-101) D 01/10/25 04:15 MCH 27.3 pg (27-33) 01/10/25 04:15 MCHC 31.4 g/dL (30-55) 01/10/25 04:15 RDW 17.0 % (12.1-15.1) H 01/10/25 04:15 Plt Count 236 10^3/cmm (157-399) 01/10/25 04:15 MPV 10.1 fL (7.4-10.4) 01/10/25 04:15 Neut % (Auto) 79.0 % 01/10/25 04:15 Lymph % (Auto) 14.2 % 01/10/25 04:15 [place] % (Auto) 6.2 % 01/10/25 04:15 Eos % (Auto) 0.0 % 01/10/25 04:15 Baso % (Auto) 0.2 % 01/10/25 04:15 Neut # (Auto) 8.73 10^3/uL (1.8-7.7) H 01/10/25 04:15 Lymph # (Auto) 1.6 10^3/uL (0.8-4.8) 01/10/25 04:15 [place] # (Auto) 0.7 10^3/uL (0.2-0.9) 01/10/25 04:15 Eos # (Auto) 0.0 10^3/uL (0.0-0.8) 01/10/25 04:15 Baso # (Auto) 0.0 10^3/uL (0.0-0.1) 01/10/25 04:15 Nucleated RBC % (auto) 0 % 01/10/25 04:15 Nucleated RBCs # 0.0 /100WBC 01/10/25 04:15 PT 13.00 SECONDS (12.1-14.9) 01/09/25 10:06 INR 0.92 (0.8-1.2) 01/09/25 10:06 Sodium 133 mmol/L (136-145) L 01/10/25 04:15 Potassium 4.6 mmol/L (3.5-5.1) 01/10/25 04:15 Chloride 102 mmol/L (98-107) 01/10/25 04:15 Carbon Dioxide 21 mmol/L (22-29) L 01/10/25 04:15 Anion Gap 14.6 (5-19) 01/10/25 04:15 BUN 24 mg/dL (8-23) H 01/10/25 04:15 Creatinine 1.5 mg/dL (0.7-1.2) H 01/10/25 04:15 GFR Calculation Not Reportable 01/10/25 04:15 Glucose 199 mg/dL (65-115) H 01/10/25 04:15 POC Glucose 360 mg/dL (70-110) H 01/11/25 11:22 Calculated Osmolality 286 mOsm/kg (285-295) 01/10/25 04:15 Calcium 9.0 mg/dL (8.5-10.5) 01/10/25 04:15 Total Bilirubin 0.5 mg/dL (0.15-1.2) 01/09/25 10:06 AST 17 U/L (0-40) 01/09/25 10:06 ALT 7 U/L (0-41) 01/09/25 10:06 Alkaline Phosphatase 231 U/L (40-130) H 01/09/25 10:06 Total Protein 8.1 g/dL (6.6-8.7) 01/09/25 10:06 Albumin 3.9 g/dL (3.5-5.2) 01/09/25 10:06 Globulin 4.2 g/dL (1.3-4.6) 01/09/25 10:06 Urine Color Dark yellow (Yellow) A 01/09/25 11:00 Urine Appearance Turbid (CLEAR) A 01/09/25 11:00 Urine pH 6 (5-7) 01/09/25 11:00 Ur Specific [place] 1.015 (1.005-1.030) 01/09/25 11:00 Urine Protein 1+ (Negative) H 01/09/25 11:00 Urine Glucose (UA) 4+ (Normal) H 01/09/25 11:00 Urine Ketones Negative (Negative) 01/09/25 11:00 Urine Blood 3+ (Negative) H 01/09/25 11:00 Urine Nitrate Negative (Negative) 01/09/25 11:00 Urine Bilirubin Neg (Negative) 01/09/25 11:00 Urine Urobilinogen Neg mg/dL (Negative) 01/09/25 11:00 Ur Leukocyte Esterase 2+ (Negative) H 01/09/25 11:00 Urine RBC >100 /hpf (0-2) H 01/09/25 11:00 Urine WBC >100 /hpf (0-5) H 01/09/25 11:00 Ur Squamous Epith Cells 0-5 /hpf (0-5) 01/09/25 11:00 Amorphous Sediment Not Reportable 01/09/25 11:00 Urine Bacteria None seen /hpf (NONE) 01/09/25 11:00 Hyaline Casts 0-4 /lpf H 01/09/25 11:00 Vitals Last Vital Signs Temp 98.0 F 01/11/25 11:20 Pulse 77 01/11/25 11:20 Resp 16 01/11/25 11:20 BP 116/59 01/11/25 11:20 Pulse Ox 95 01/11/25 11:20 O2 Del Method Nasal Cannula 01/11/25 11:20 O2 Flow Rate 2 01/11/25 11:20 Discharge Plan Discharge Patient Disposition: Home Condition: Stable Prescriptions: New Eliquis 5 mg Tablet 2.5 mg PO BID 30 Days Qty: 60 0RF levofloxacin 750 mg tablet 750 mg PO DAILY 5 Days Qty: 5 0RF Continued insulin glargine [Lantus U-100 Insulin] 100 unit/mL solution 50 unit SUBCUT BEDTIME Qty: 50 2RF meloxicam 7.5 mg tablet 7.5 mg PO DAILY Qty: 90 1RF amlodipine 10 mg tablet 10 mg PO DAILY Qty: 90 1RF ondansetron 4 mg tablet,disintegrating 4 mg translingual Q4H PRN (Reason: nausea) Qty: 5 0RF Rx Instructions: Dissolve 1 tablet under tongue every 4 hours PRN for nausea bisacodyl 10 mg suppository 10 mg DE DAILY PRN (Reason: constipation) Qty: 5 0RF Rx Instructions: 1 suppository per rectum every day PRN for constipation. atropine 1 % drops 4 drp sublingual Q4H PRN (Reason: secretions) Qty: 5 0RF Rx Instructions: 4 drops SL q 4 hours PRN for terminal congestion/excessive secretions. lorazepam 2 mg/mL concentrate 2 mg sublingual Q4H PRN (Reason: Anxiety/Seizure) Qty: 30 0RF Rx Instructions: 0.25ml-1ml q4H PRN Anxiety/Seizure Start 0.25ml may increase to 0.5ml-1ml q4H morphine concentrate 100 mg/5 mL (20 mg/mL) solution 20 mg sublingual DIRECTED PRN (Reason: Pain/SOB) 14 Days Qty: 30 0RF Rx Instructions: 0.25ml-1ml q1H PRN may increase to 0.5ml-1ml Q1H PRN hydroxyzine HCl 25 mg tablet 25 mg PO TID PRN (Reason: Itching) Qty: 5 0RF Rx Instructions: Take 1 table by mouth as needed three times a day for itching hydrocodone-acetaminophen 10-325 mg tablet 1 tab PO TID PRN (Reason: pain) 15 Days Qty: 45 0RF zolpidem 5 mg tablet 5 mg PO .hs PRN (Reason: insomnia) Qty: 30 3RF lorazepam 0.5 mg tablet 0.5 mg PO DAILY amitriptyline 25 mg tablet 25 mg PO QPM Discharge Orders: Discharge Order (Routine); Ordered 01/11/25 Ordered By: Yessica Kyle Referrals: Niyah Phillip MD [Physician] - 01/24/25 10:15 am Basil Bravo MD [Primary Care Provider] - 02/09/25 9:30 am Discharge Diet: Diabetic Discharge Activity: Increase activity as tolerated Patient Instructions: Acute Wound Care (DC), Opioid Safety, Post Anesthesia Care Discharge Attestations Time Spent in Discharge Care*: less than 30 min Quality Metrics Clinical Quality Measures [ No reported AMI, CVA or VTE this stay] Coding Level of Care Code Acute Code for Chg Fwd Diagnoses Closed displaced intertrochanteric fracture of right femur, initial encounter S72.141A Encounter type: initial encounter Fracture alignment: displaced Prostate cancer metastatic to bone C61; C79.51 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
== END 2025-01-11 14:15 | disposition hospice, home (50) | DRG 481 ==
LOC: ER 11:51 → MEDSURG 13:25
PROVIDERS: Specialist; Admitting Provider Internal Medicine; Emergency Provider Emergency Medicine; PCP Family Medicine; Visit Provider Internal Medicine
PROC: (CPT 27245; principal; 2025-01-09 15:30)
DX: S72.141A Displaced intertrochanteric fracture of right femur, initial encounter for closed fracture (principal); C79.51 Secondary malignant neoplasm of bone; N39.0 Urinary tract infection, site not specified; W01.0XXA Fall on same level from slipping, tripping and stumbling without subsequent striking against object, initial encounter; E11.22 Type 2 diabetes mellitus with diabetic chronic kidney disease; I13.10 Hypertensive heart and chronic kidney disease without heart failure, with stage 1 through stage 4 chronic kidney disease, or unspecified chronic kidney disease; F41.9 Anxiety disorder, unspecified; C61 Malignant neoplasm of prostate; C67.9 Malignant neoplasm of bladder, unspecified; N18.31 Chronic kidney disease, stage 3a; Z66 Do not resuscitate; G89.29 Other chronic pain; Z96.651 Presence of right artificial knee joint; Z79.1 Long term (current) use of non-steroidal anti-inflammatories (NSAID); Z79.4 Long term (current) use of insulin; Z79.899 Other long term (current) drug therapy; Z88.0 Allergy status to penicillin; Z88.2 Allergy status to sulfonamides; Z88.8 Allergy status to other drugs, medicaments and biological substances; Z88.6 Allergy status to analgesic agent
CPT/HCPCS: 36415; 36416; 71045; 73502; 73552; 76000; 80048; 80053; 81001; 82962; 85025; 85610; 87086; 88307; 88311; 88342; 93005; 96365; 96372; 97116; 97161; 97165; 97530; 99285; C1713; J1100; J1171; J1815; J1956; J2405; J2704; J3010; J3370; J3490; J7050; J7799; J9999

== ENCOUNTER → 2025-01-24 09:58 | Outpatient (BNVA) | payer MEDICARE, OTHER, SELFPAY | PROVIDERS: PCP Family Medicine; Visit Provider Specialist | DX: Z98.890 Other specified postprocedural states (principal) | CPT/HCPCS: 73502; 99024 ==